=== PATIENT | male | born 1965 | race Caucasian/White ===

== ENCOUNTER 2017-07-18 01:00 | Inpatient (IN) | payer BC ==
[~2017-07-18] VITALS: Ht 172.7 cm; Wt 120.6 kg
[2017-07-18] VITALS (21 sets, daily range): BP systolic 111–152; BP diastolic 60–76; PULSE 64–83; RESP 17–32; TEMP 97.4–98; O2SAT 87–94
[~2017-07-18 01:00] MED LIST: NALOXONE HCL 0.4 MG/ML AMP IV PRN; RESP: ALBUTEROL 2.5 MG/IPRATROPIUM 0.5 MG NEB (PRN) NEB; RESP: ALBUTEROL 2.5 MG/IPRATROPIUM 0.5 MG NEB (SCH) NEB; SODIUM CHLORIDE 0.9% FLUSH 10 ML FLUSH IV FLUSH PRN; SODIUM CHLORIDE 0.9% FLUSH 10 ML FLUSH IV FLUSH SCH; methylPREDNISolone SOD SUCC 40 MG/1 ML VIAL IV PUSH SCH
[2017-07-18] MEDS ORDERED: MISCELLANEOUS NURSING INFORMATION XX SCH (01:30)
[2017-07-18] MEDS ORDERED: ACETAMINOPHEN 325 MG TAB PO PRN (01:30)
[2017-07-18] MEDS ORDERED: SODIUM CHLORIDE 0.9% FLUSH 10 ML FLUSH PRN (01:30)
[2017-07-18] MEDS ORDERED: BISACODYL 10 MG SUPP RECTAL PRN (01:30)
[2017-07-18] MEDS ORDERED: LACTULOSE SYRUP 20 GM/30 ML CUP PO PRN (01:30)
[2017-07-18] MEDS ORDERED: SENNOSIDES 8.6 MG TAB PO PRN (01:30)
[2017-07-18] MEDS ORDERED: ONDANSETRON HCL 4 MG/2 ML VIAL IV PRN (01:30)
[2017-07-18] MEDS ORDERED: CHLORHEXIDINE GLUCONATE 2 % 1 PACK (2 CLOTHS) TOP PRN (01:30)
[2017-07-18] MEDS ORDERED: MAGNESIUM HYDROXIDE SUSP 30 ML CUP PO PRN (01:30)
[2017-07-18] MEDS ORDERED: CHLORHEXIDINE GLUCONATE 2 % 1 PACK (2 CLOTHS)(extra cloths) TOPICAL PRN (01:45)
[2017-07-18] MEDS: RESP: ALBUTEROL 2.5 MG/IPRATROPIUM 0.5 MG NEB (PRN) INH (01:54)
[2017-07-18] MEDS ORDERED: methylPREDNISolone SOD SUCC 40 MG/1 ML VIAL IV SCH (02:00)
[2017-07-18] MEDS: RESP: ALBUTEROL 2.5 MG/IPRATROPIUM 0.5 MG NEB (SCH) INH ×5 (02:36→20:44)
[2017-07-18 03:02] LABS: AUTOMATED NEUTROPHIL # 6.6 TH/MM3 (1.8-7.7); BASOPHIL % 0.1 % (0.0-2.0); EOSINOPHIL % 0.1 % (0.0-4.0); HEMATOCRIT 45.8 % (39.0-51.0); HEMO FLAGS DIFF FINAL; LYMPH % 11.3 % (9.0-44.0); LYMPHOCYTE # 0.9 TH/MM3 (1.0-4.8); MEAN CELL VOLUME 98.1 FL (80.0-100.0); MEAN CORPUSCULAR HEMOGLOBIN 32.8 PG (27.0-34.0); MEAN CORPUSCULAR HGB CONC 33.5 % (32.0-36.0); MONO % 1.7 % (0.0-8.0); NEUT % 86.8 % (16.0-70.0); PLATELET COUNT 219 TH/MM3 (150-450); RED BLOOD COUNT 4.67 MIL/MM3 (4.50-5.90); RED CELL DISTRIBUTION WIDTH 13.6 % (11.6-17.2); WHITE BLOOD COUNT 7.6 TH/MM3 (4.0-11.0)
[2017-07-18] MEDS: PIPERACIL-TAZO 4.5 GM PREMIX 100 ML IV SCH ×4 (03:13→21:49)
[2017-07-18] MEDS: SODIUM CHLOR 0.9% 1000 ML INJ 1,000 ML IV SCH ×3 (03:13→21:50)
[2017-07-18] MEDS: ENOXAPARIN SODIUM 40 MG/0.4 ML SYRINGE SQ SCH (03:13)
[2017-07-18] MEDS: CHLORHEXIDINE GLUCONATE 2 % 1 PACK (2 CLOTHS)(taper/protocol) TOPICAL SCH (03:14)
[2017-07-18] MEDS: AZITHROMYCIN INJ 500 MG in SODIUM CHLOR 0.9% 250 ML INJ 250 ML IV SCH (03:14)
[2017-07-18] MEDS: CHLORHEXIDINE GLUCONATE 2 % 1 PACK (2 CLOTHS) TOP SCH (03:14)
[2017-07-18 03:23] LABS: ANION GAP 7 MEQ/L (5-15); BICARBONATE 33.6 MEQ/L (21.0-32.0); BLOOD UREA NITROGEN 15 MG/DL (7-18); CHLORIDE 100 MEQ/L (98-107); GLOMERULAR FILTRATION RATE 84 ML/MIN (>89); SODIUM (NA) 141 MEQ/L (136-145)
--- NOTE | 2017-07-18 05:35 | HHI.HP ---
HPI Service Critical Care Medicine Primary Care Physician No Primary Care Physician Admission Diagnosis Diagnosis: Travel History International Travel<30 Days: No Contact w/Intl Traveler <30 Da: No Traveled to Known Affected Are: No History of Present Illness 52-year-old very pleasant gentleman presents with the 7-10 day history of respiratory problems with progressive shortness of breath. He is a heavy smoker , but denies any history of respiratory impairment, does not see a strip cleaner or regular doctor, but reports that he has good healthy examinations. He went to an urgent care center in [place], was given an unknown antibiotic which sounds like azithromycin, in which he took 1 pill a day for 5 days, but did not get any better. He has continued to smoke, and he has continued to work. Denies any pains in his chest or elsewhere, but has had progressive shortness of breath. He went to an urgent care center here locally yesterday for further evaluation, but was sent immediately to the emergency department for high level of care, and was recommended to come by ambulance. Instead patient came by himself, stopping to smoke marijuana on the way before arrival. Review of Systems Constitutional: DENIES: Diaphoretic episodes, Fatigue, Fever, Weight gain, Weight loss, Chills, Dizziness, Change in appetite, Night Sweats Endocrine: DENIES: Heat/cold intolerance, Polydipsia, Polyuria, Polyphagia Eyes: DENIES: Blurred vision, Diplopia, Eye inflammation, Eye pain, Vision loss , Photosensitivity, Double Vision Ears, nose, mouth, throat: DENIES: Tinnitus, Hearing loss, Vertigo, Nasal discharge, Oral lesions, Throat pain, Hoarseness, Ear Pain, Running Nose, Epistaxis, Sinus Pain, Toothache, Odynophagia Respiratory: COMPLAINS OF: Shortness of breath, DENIES: Apneas, Cough, Snoring , Wheezing, Hemoptysis, Sputum production Cardiovascular: DENIES: Chest pain, Palpitations, Syncope, Dyspnea on Exertion , PND, Lower Extremity Edema, Orthopnea, Claudication Gastrointestinal: DENIES: Abdominal pain, Black stools, Bloody stools, Constipation, Diarrhea, Nausea, Vomiting, Difficulty Swallowing, Anorexia Genitourinary: DENIES: Sexual dysfunction, Urinary frequency, Urinary incontinence, Urgency, Hematuria, Dysuria, Nocturia, Penile Discharge, Testicular Pain, Testicular Swelling Musculoskeletal: DENIES: Joint pain, Muscle aches, Stiffness, Joint Swelling, Back pain, Neck pain Integumentary: DENIES: Abnormal pigmentation, Nail changes, Pruritus, Rash Hematologic/lymphatic: DENIES: Bruising, Lymphadenopathy Immunologic/allergic: DENIES: Eczema, Urticaria Neurologic: DENIES: Abnormal gait, Headache, Localized weakness, Paresthesias, Seizures, Speech Problems, Tremor, Poor Balance Psychiatric: DENIES: Anxiety, Confusion, Mood changes, Depression, Hallucinations, Agitation, Suicidal Ideation, Homicidal Ideation, Delusions Past Family Social History Allergies: Coded Allergies: No Known Allergies (Unverified , 07/17/17) Past Medical History Tobacco use disorder Obesity hypoventilation syndrome Past Surgical History None Reported Medications Reported Meds & Active Scripts Active No Active Prescriptions or Reported Medications Active Ordered Medications Current Medications Medications (Trade) Dose Ordered Sig/Chace Route PRN Reason Start Time Stop Time Status Last Admin Dose Admin Naloxone HCl (Narcan Inj) 0.4 mg UNSCH PRN IV SEE LABEL COMMENTS 07/17/17 20:30 Levofloxacin/ Dextrose 150 ml @ 100 mls/hr Q24H IV 07/18/17 09:00 Sodium Chloride 1,000 ml @ 84 mls/hr [id number] IV 07/18/17 01:21 07/18/17 03:13 Sodium Chloride (NS Flush) 2 ml UNSCH PRN .XX FLUSH AFTER USING IV ACCESS 07/18/17 01:30 Sodium Chloride (NS Flush) 2 ml BID .XX 07/18/17 09:00 Acetaminophen (Tylenol) 650 mg Q6H PRN PO PAIN 1-10 AND/OR FEVER >101F 07/18/17 01:30 Famotidine (Pepcid Inj) 20 mg Q12HR IV PUSH 07/18/17 09:00 Ondansetron HCl (Zofran Inj) 4 mg Q6H PRN IV NAUSEA OR VOMITING 07/18/17 01:30 Zolpidem Tartrate (Ambien) 5 mg HS PRN PO INSOMNIA 07/18/17 01:30 Albuterol/ Ipratropium (Duoneb Neb) 1 ampule Q4HR NEB INH 07/18/17 04:00 07/18/17 02:36 Albuterol/ Ipratropium (Duoneb Neb) 1 ampule Q2HR NEB PRN INH WHEEZING 07/18/17 01:30 07/18/17 01:54 Enoxaparin Sodium (Lovenox Inj) 40 mg Q24H SQ 07/18/17 03:00 07/18/17 03:13 Miscellaneous Information 1 Q361D XX 07/18/17 01:30 Chlorhexidine Gluconate (Chlorhexidine 2% Cloth) 3 pack Taper DAILY@04 TOP 07/18/17 04:00 07/14/18 03:59 07/18/17 03:14 Chlorhexidine Gluconate (Chlorhexidine 2% Cloth) 3 pack UNSCH PRN TOP HYGIENIC CARE 07/18/17 01:30 Senna/Docusate Sodium (Shauna-Colace) 1 tab BID PO 07/18/17 09:00 Magnesium Hydroxide (Milk Of Magnesia Liq) 30 ml Q12H PRN PO MILD - MODERATE CONSTIPATION 07/18/17 01:30 Sennosides (Senokot) 17.2 mg Q12H PRN PO MODERATE - SEVERE CONSTIPATION 07/18/17 01:30 Bisacodyl (Dulcolax Supp) 10 mg DAILY PRN RECTAL SEVERE CONSITIPATION 07/18/17 01:30 Lactulose (Lactulose Liq) 30 ml DAILY PRN PO SEVERE CONSITIPATION 07/18/17 01:30 Piperacillin Sod/ Tazobactam Sod 100 ml @ 200 mls/hr Q6H IV 07/18/17 02:00 07/18/17 03:13 Azithromycin 500 mg/Sodium Chloride 250 ml @ 250 mls/hr Q24H IV 07/18/17 04:00 07/18/17 03:14 Methylprednisolone Sodium Succinate (SoluMEDROL INJ) 40 mg Q12H IV 07/18/17 02:00 07/18/17 03:13 Miscellaneous Information Patient in critical care unit? Ass... Q361D .XX 07/18/17 01:45 Chlorhexidine Gluconate (Chlorhexidine 2% Cloth) 3 pack DAILY@04 TOPICAL 07/18/17 04:00 07/22/17 04:01 Chlorhexidine Gluconate (Chlorhexidine 2% Cloth) 3 pack UNSCH PRN TOPICAL HYGIENIC CARE 07/18/17 01:45 07/23/17 01:36 Family History No family history significant for early coronary artery disease or malignancy Social History Smokes 2 packs per day lifelong, no history of alcohol or illicit drug abuse, occasionally smokes medical marijuana Physical Exam Vital Signs Vital Signs Date Time Temp Pulse Resp B/P (MAP) Pulse Ox O2 Delivery O2 Flow Rate FiO2 07/18/17 04:08 93 50 07/18/17 04:00 66 07/18/17 02:00 70 07/18/17 02:00 97.6 70 20 125/69 (87) 90 07/18/17 01:54 94 BiPAP 50 07/18/17 01:05 91 50 Physical Exam GENERAL: Morbidly obese man on facemask BiPAP SKIN: Warm and dry. HEAD: Normocephalic. EYES: No scleral icterus. No injection or drainage. NECK: Supple, trachea midline. No JVD or lymphadenopathy. CARDIOVASCULAR: Regular rate and rhythm without murmurs, gallops, or rubs. RESPIRATORY: Breath sounds equal bilaterally. Decreased breath sounds bilaterally. No accessory muscle use. GASTROINTESTINAL: Abdomen soft, non-tender, nondistended. MUSCULOSKELETAL: No cyanosis, or edema. BACK: Nontender without obvious deformity. NEURO EXAM: GCS: M6 V5 E 4 Mental Status: The patient is alert and oriented to person, place, and time with normal speech. Cranial Nerves: Visual acuity intact bilaterally. Visual chaney normal in all quadrants. Pupils are round, reactive to light. Reflexes: Biceps, patellar, and Achilles are 2/4 bilaterally. No clonus. Laboratory Laboratory Tests Test 07/18/17 01:20 07/18/17 02:44 Nasal Screen MRSA (PCR) MRSA NOT DETECTED White Blood Count 7.6 Red Blood Count 4.67 Hemoglobin 15.3 Hematocrit 45.8 Mean Corpuscular Volume 98.1 Mean Corpuscular Hemoglobin 32.8 Mean Corpuscular Hemoglobin Concent 33.5 Red Cell Distribution Width 13.6 Platelet Count 219 Mean Platelet Volume 8.0 Neutrophils (%) (Auto) 86.8 Lymphocytes (%) (Auto) 11.3 Monocytes (%) (Auto) 1.7 Eosinophils (%) (Auto) 0.1 Basophils (%) (Auto) 0.1 Neutrophils # (Auto) 6.6 Lymphocytes # (Auto) 0.9 Monocytes # (Auto) 0.1 Eosinophils # (Auto) 0.0 Basophils # (Auto) 0.0 CBC Comment DIFF FINAL Differential Comment Blood Urea Nitrogen 15 Creatinine 0.94 Random Glucose 158 Calcium Level 8.3 Sodium Level 141 Potassium Level 4.0 Chloride Level 100 Carbon Dioxide Level 33.6 Anion Gap 7 Estimat Glomerular Filtration Rate 84 Troponin I LESS THAN 0.02 Date/Time Source Procedure Growth Status 07/18/17 02:44 Blood Peripheral Aerobic Blood Culture Pending Received 07/18/17 02:44 Blood Peripheral Anaerobic Blood Culture Pending Received Result Diagram: 07/18/174 07/18/174 Caprini VTE Risk Assessment Caprini VTE Risk Assessment: Mod/High Risk (score >= 2) Caprini Risk Assessment Model Point Value = 1 Point Value = 2 Point Value = 3 Point Value = 5 Age 41-60 Minor surgery BMI > 25 kg/m2 Swollen legs Varicose veins or History of unexplained or recurrent spontaneous Oral contraceptives or hormone replacement Sepsis (< 1 month) Serious lung disease, including pneumonia (< 1 month) Abnormal pulmonary function Acute myocardial infarction Congestive heart failure (< 1 month) History of inflammatory bowel disease Medical patient at bed rest Age 61-74 Arthroscopic surgery Major open surgery (> 45 min) Laparoscopic surgery (> 45 min) Malignancy Confined to bed (> 72 hours) Immobilizing plaster cast Central venous access Age >= 75 History of VTE Family history of VTE Factor V Leiden Prothrombin [id number] Lupus anticoagulant Anticardiolipin antibodies Elevated serum homocysteine Heparin-induced thrombocytopenia Other congenital or acquired thrombophilia Stroke (< 1 month) Elective arthroplasty Hip, pelvis, or leg fracture Acute spinal cord injury (< 1 month) Prophylaxis Regimen Total Risk Factor Score Risk Level Prophylaxis Regimen 0-1 Low Early ambulation 2 Moderate Order ONE of the following: *Sequential Compression Device (SCD) *Heparin 5000 units SQ BID 3-4 Higher Order ONE of the following medications: *Heparin 5000 units SQ TID *Enoxaparin/Lovenox 40 mg SQ daily (WT < 150 kg, CrCl > 30 mL/min) *Enoxaparin/Lovenox 30 mg SQ daily (WT < 150 kg, CrCl > 10-29 mL/min) *Enoxaparin/Lovenox 30 mg SQ BID (WT < 150 kg, CrCl > 30 mL/min) AND/OR *Sequential Compression Device (SCD) 5 or more Highest Order ONE of the following medications: *Heparin 5000 units SQ TID (Preferred with Epidurals) *Enoxaparin/Lovenox 40 mg SQ daily (WT < 150 kg, CrCl > 30 mL/min) *Enoxaparin/Lovenox 30 mg SQ daily (WT < 150 kg, CrCl > 10-29 mL/min) *Enoxaparin/Lovenox 30 mg SQ BID (WT < 150 kg, CrCl > 30 mL/min) AND *Sequential Compression Device (SCD) Assessment and Plan Assessment and Plan Respiratory failure - COPD exacerbation - Obesity hypoventilation syndrome - Tobacco use disorder - Broad-spectrum antibiotics empirically - Pancultures - IV steroid - DuoNeb scheduled and when necessary - Pulmonary consult - BiPAP at bedtime and when necessary - ABG and CXR daily DVT GI prophylaxis - Teds SCDs subcutaneous heparin and Pepcid Critical Care: The total critical care time was 35 minutes. Time to perform other separately billable procedures was not included in the critical care time. Luisito Ramos MD Jul 18, 2017 5:35 am
[2017-07-18 07:23] LABS: BLOOD GAS BASE EXCESS 6.4 mmol/L (-2-2); BLOOD GAS CARBOXYHEMOGLOBIN 2.1 % (0-4); BLOOD GAS HCO3 32 mmol/L (22-26); BLOOD GAS O2 HGB SATURATION 90 % (90-100); BLOOD GAS OXYGEN CONTENT 19.7 Vol % (12.0-20.0); BLOOD GAS PCO2 55 mmHg (38-42); BLOOD GAS PO2 69 mmHg (61-120); BLOOD GAS TOTAL HGB 15.5 G/DL (12.0-16.0); CRITICAL VALUE YES; OXYGEN DEVICE BIPAP; TEMP CORR TO 98.6
[2017-07-18 07:24] LABS: DRAW SITE RT RADIAL; FIO2 40 %; NUMBER OF ARTERIAL PUNCTURES 1; STAT NO; ULNAR PULSE Y; VENT SETTINGS 12IPAP/6EPAP
[2017-07-18] MEDS: DOCUSATE SODIUM 50 MG/SENNA 8.6 MG TAB PO SCH ×2 (08:06→21:49)
[2017-07-18] MEDS: FAMOTIDINE 20 MG/2 ML VIAL IV PUSH SCH ×2 (08:06→21:49)
[2017-07-18] MEDS: SODIUM CHLORIDE 0.9% FLUSH 10 ML FLUSH SCH ×2 (08:08→21:49)
[2017-07-18] MEDS ORDERED: PANTOPRAZOLE SOD 40 MG DELAYED RELEASE TAB PO SCH (09:00)
[2017-07-18] MEDS ORDERED: LEVOFLOXACIN 750 MG PREMIX INJ 150 ML IV SCH (09:00)
[2017-07-18 11:29] LABS: BLOOD GAS BASE EXCESS 6.5 mmol/L (-2-2); BLOOD GAS CARBOXYHEMOGLOBIN 1.9 % (0-4); BLOOD GAS HCO3 31 mmol/L (22-26); BLOOD GAS O2 HGB SATURATION 90 % (90-100); BLOOD GAS OXYGEN CONTENT 19.1 Vol % (12.0-20.0); BLOOD GAS PCO2 46 mmHg (38-42); BLOOD GAS PO2 64 mmHg (61-120); BLOOD GAS TOTAL HGB 15.1 G/DL (12.0-16.0); CRITICAL VALUE NO; OXYGEN DEVICE BIPAP; TEMP CORR TO 98.6
[2017-07-18 11:30] LABS: DRAW SITE RT RADIAL; FIO2 40 %; NUMBER OF ARTERIAL PUNCTURES 1; STAT NO; ULNAR PULSE Y; VENT SETTINGS 12 IPAP/ 6 EPAP
[2017-07-18] MEDS: methylPREDNISolone SOD SUCC 40 MG/1 ML VIAL IV SCH ×2 (17:15→21:50)
[2017-07-19] VITALS (30 sets, daily range): BP systolic 93–155; BP diastolic 52–78; PULSE 64–87; RESP 21–50; TEMP 97.8–98.6; O2SAT 87–97
[2017-07-19] MEDS: RESP: ALBUTEROL 2.5 MG/IPRATROPIUM 0.5 MG NEB (SCH) INH ×5 (00:09→19:49)
[2017-07-19] MEDS: PIPERACIL-TAZO 4.5 GM PREMIX 100 ML IV SCH ×2 (02:52→08:00)
[2017-07-19] MEDS: AZITHROMYCIN INJ 500 MG in SODIUM CHLOR 0.9% 250 ML INJ 250 ML IV SCH (02:53)
[2017-07-19] MEDS: methylPREDNISolone SOD SUCC 40 MG/1 ML VIAL IV SCH ×3 (02:53→19:40)
[2017-07-19] MEDS: ENOXAPARIN SODIUM 40 MG/0.4 ML SYRINGE SQ SCH (02:53)
[2017-07-19] MEDS: CHLORHEXIDINE GLUCONATE 2 % 1 PACK (2 CLOTHS)(taper/protocol) TOPICAL SCH (04:00)
[2017-07-19] MEDS: CHLORHEXIDINE GLUCONATE 2 % 1 PACK (2 CLOTHS) TOP SCH (04:00)
[2017-07-19 05:21] LABS: BLOOD GAS BASE EXCESS 4.8 mmol/L (-2-2); BLOOD GAS CARBOXYHEMOGLOBIN 1.3 % (0-4); BLOOD GAS HCO3 29 mmol/L (22-26); BLOOD GAS METHEMOGLOBIN 1.1 % (0-2); BLOOD GAS O2 HGB SATURATION 94 % (90-100); BLOOD GAS OXYGEN CONTENT 19.3 Vol % (12.0-20.0); BLOOD GAS PCO2 47 mmHg (38-42); BLOOD GAS PO2 82 mmHg (61-120); BLOOD GAS TOTAL HGB 14.7 G/DL (12.0-16.0); CRITICAL VALUE NO; DRAW SITE RT RADIAL; FIO2 60 %; TEMP CORR TO 98.6
[2017-07-19 05:22] LABS: NUMBER OF ARTERIAL PUNCTURES 1; STAT NO; ULNAR PULSE PRESENT
[2017-07-19 05:33] LABS: AUTOMATED NEUTROPHIL # 12.4 TH/MM3 (1.8-7.7); BASOPHIL % 0.1 % (0.0-2.0); HEMATOCRIT 43.6 % (39.0-51.0); HEMO FLAGS DIFF FINAL; LYMPH % 8.4 % (9.0-44.0); LYMPHOCYTE # 1.2 TH/MM3 (1.0-4.8); MEAN CELL VOLUME 98.8 FL (80.0-100.0); MEAN CORPUSCULAR HEMOGLOBIN 33.1 PG (27.0-34.0); MEAN CORPUSCULAR HGB CONC 33.5 % (32.0-36.0); MONO % 3.3 % (0.0-8.0); NEUT % 88.2 % (16.0-70.0); PLATELET COUNT 216 TH/MM3 (150-450); RED BLOOD COUNT 4.42 MIL/MM3 (4.50-5.90); RED CELL DISTRIBUTION WIDTH 13.8 % (11.6-17.2)
[2017-07-19 05:58] LABS: ANION GAP 8 MEQ/L (5-15); AST (GOT) 14 U/L (15-37); BICARBONATE 29.6 MEQ/L (21.0-32.0); BLOOD UREA NITROGEN 25 MG/DL (7-18); CHLORIDE 103 MEQ/L (98-107); GLOMERULAR FILTRATION RATE 81 ML/MIN (>89); MAGNESIUM 2.7 MG/DL (1.5-2.5); POTASSIUM 4.2 MEQ/L (3.5-5.1); SODIUM (NA) 141 MEQ/L (136-145)
[2017-07-19 06:03] LABS: ALKALINE PHOSPHATASE 53 U/L (45-117); ALT (GPT) 74 U/L (12-78); TOTAL BILIRUBIN ADULT 0.5 MG/DL (0.2-1.0)
[2017-07-19] MEDS: DOCUSATE SODIUM 50 MG/SENNA 8.6 MG TAB PO SCH ×2 (09:00→19:41)
[2017-07-19] MEDS: FAMOTIDINE 20 MG/2 ML VIAL IV PUSH SCH ×2 (09:00→19:40)
[2017-07-19] MEDS: SODIUM CHLORIDE 0.9% FLUSH 10 ML FLUSH SCH ×2 (09:00→19:41)
--- NOTE | 2017-07-19 12:28 | MB ---
cc: ANTHONY TEJEDA DATE OF CONSULTATION: 07/19/2017 REASON FOR CONSULTATION: Respiratory failure. HISTORY OF PRESENT ILLNESS: This is a 49-year-old overweight white male with a history of shortness of breath and bronchitis who apparently has been experiencing cough, wheezing and chest congestion and was on an oral antibiotic but failed to improve. The patient was brought to the emergency room and a chest CT and a CBC done and the chest CT demonstrated no evidence of pulmonary emboli and mild atelectasis. The patient has had been and respiratory failure following admission and thus had been placed on a BiPAP mask to maintain his saturation above 92%. He has no hemoptysis but has had some yellow sputum and denied fevers or chills and night sweats. HABITS The patient smoked half to one-pack per day for over 35 years. No significant alcohol. SURGERIES: None listed. ALLERGIES: NO KNOWN DRUG ALLERGIES. FAMILY HISTORY: Essentially noncontributory REVIEW OF SYSTEMS The patient has gained weight. He has apneic episodes and snoring. Denies any leg or calf muscle pains. He has joint pains of the extremities. He denies any skin rash. He has some anxiety attacks. He has had no urinary symptoms or GI symptoms. PHYSICAL EXAMINATION: GENERAL: This is a moderately obese middle-aged white male who is in bed on a BiPAP mask alert and cooperative and face was flushed. He has mild peripheral edema. No lymphadenopathy. VITAL SIGNS: Blood pressure 148/80, pulse is 90, respirations 22, temperature 98.2. HEAD, EYES, EARS, NOSE, THROAT: Head normocephalic. The pupils are reactive. Tongue is moist. Throat is injected. Nasal mucosa edematous. NECK: The neck is supple. No venous distention. Trachea is midline. CHEST: Distant breath sounds with expiratory wheezes throughout both lung chaney. Prolonged expirations. HEART: Heart sounds are irregular. S1-S2. No murmur. No S3. ABDOMEN: Abdomen soft and benign. No masses. No organomegaly or tenderness. The bowel sounds are active. EXTREMITIES: Mild varicosities with decreased peripheral pulses. No significant edema. NEUROLOGIC: Reflexes are 1+. No gross motor deficits. Cranial nerves are grossly intact. RECTAL: Rectal exam is deferred. IMPRESSION: 1. Acute respiratory failure. 2. COPD. 3. Chronic bronchitis. 4. Probable obstructive sleep apnea syndrome. 5. History of hypertension. PLAN: 1. The patient was counselled about not smoking any more and advised to lose weight. 2. He will be scheduled for a sleep study nebulized DuoNeb solution will be added four times a day. 3. The patient will have complete pulmonary function with bronchodilators. 4. He will continue with Solu-Medrol 40 milligrams IV every eight hours. 5. Antibiotic therapy including Levaquin 750 milligrams IV daily. 6. Sputum will be sent for Gram stain and culture. 7. Urine antigen sent for Pneumococcal antigen. 8. Symbicort inhaler 160/4.5 two puffs twice a day was added. I will follow the case with you, Dr. Restrepo. Thank you for this consultation. MD JORDY Starks/SCOOBY /11:37 PM /12:01 PM
--- NOTE | 2017-07-19 12:37 | HHI.PR ---
Subjective Remarks Patient is awake and alert on bipap able to answer questions denies cp, sob is improving as per patient Denies nausea, vomiting or abdominal pain denies diarrhea or rash Objective Vitals Vital Signs Date Time Temp Pulse Resp B/P (MAP) Pulse Ox O2 Delivery O2 Flow Rate FiO2 07/19/17 10:01 84 07/19/17 10:00 73 07/19/17 09:01 85 41 101/58 (72) 87 07/19/17 09:01 85 07/19/17 09:00 87 38 91 07/19/17 09:00 87 07/19/17 08:01 71 07/19/17 08:01 71 28 107/68 (81) 95 07/19/17 08:00 65 07/19/17 08:00 66 07/19/17 08:00 98.6 07/19/17 08:00 66 25 95 07/19/17 07:46 95 60 07/19/17 06:00 67 07/19/17 04:02 93 60 07/19/17 04:00 64 07/19/17 04:00 97.8 64 21 98/54 (69) 92 07/19/17 02:00 66 07/19/17 01:09 94 60 07/19/17 01:01 94 BiPAP 60 07/19/17 00:00 97.8 69 23 102/57 (72) 94 07/19/17 00:00 69 07/18/17 22:00 73 07/18/17 20:47 94 60 07/18/17 20:00 97.4 76 32 113/66 (82) 93 07/18/17 20:00 76 07/18/17 16:31 90 45 07/18/17 15:00 77 23 111/60 (77) 90 07/18/17 14:00 64 17 139/67 (91) 89 07/18/17 13:00 72 20 139/76 (97) 87 I/O 07/18/17 07/18/17 07/18/17 07/19/17 07/19/17 07/19/17 07:00 15:00 23:00 07:00 15:00 23:00 Intake Total 450 ml 250 ml 690 ml 1000 ml Output Total 550 ml Balance 450 ml 250 ml 140 ml 1000 ml Intake Oral 240 ml IV Total 450 ml 250 ml 450 ml 1000 ml Output Urine Total 550 ml # Voids 1 # Bowel Movements 0 Result Diagram: 07/19/17 0456 07/19/17 0456 Imaging Chest x-ray on showed mildly underinflated atelectasis at the lung bases. Otherwise no acute findings were identified. Reviewed by me. Objective Remarks AAOx3, moderate respiratory distress On full face bipap. There is decreased breath sounds on lung exam BL however air entry is perceived without wheezing, rhonchi. S1S2 +, RRR, no MRG No edema in lower extremities good peripheral pulses in upper and lowe extremities Procedures None Medications and IVs Current Medications Medications (Trade) Dose Ordered Sig/Chace Route Start Time Stop Time Status Last Admin (Narcan Inj) 0.4 mg UNSCH PRN IV 07/17/17 20:30 Sodium Chloride 1,000 ml @ 84 mls/hr [id number] IV 07/18/17 01:21 07/19/17 13:00 (NS Flush) 2 ml UNSCH PRN .XX 07/18/17 01:30 (NS Flush) 2 ml BID .XX 07/18/17 09:00 07/19/17 09:00 (Tylenol) 650 mg Q6H PRN PO 07/18/17 01:30 (Pepcid Inj) 20 mg Q12HR IV PUSH 07/18/17 09:00 07/19/17 09:00 (Zofran Inj) 4 mg Q6H PRN IV 07/18/17 01:30 (Ambien) 5 mg HS PRN PO 07/18/17 01:30 (Duoneb Neb) 1 ampule Q4HR NEB INH 07/18/17 04:00 07/19/17 11:53 (Duoneb Neb) 1 ampule Q2HR NEB PRN INH 07/18/17 01:30 07/18/17 01:54 (Lovenox Inj) 40 mg Q24H SQ 07/18/17 03:00 07/19/17 02:53 Miscellaneous Information 1 Q361D XX 07/18/17 01:30 (Chlorhexidine 2% Cloth) 3 pack Taper DAILY@04 TOP 07/18/17 04:00 07/14/18 03:59 07/19/17 04:00 (Chlorhexidine 2% Cloth) 3 pack UNSCH PRN TOP 07/18/17 01:30 (Shauna-Colace) 1 tab BID PO 07/18/17 09:00 07/19/17 09:00 (Milk Of Magnesia Liq) 30 ml Q12H PRN PO 07/18/17 01:30 (Senokot) 17.2 mg Q12H PRN PO 07/18/17 01:30 (Dulcolax Supp) 10 mg DAILY PRN RECTAL 07/18/17 01:30 (Lactulose Liq) 30 ml DAILY PRN PO 07/18/17 01:30 Miscellaneous Information Patient in critical care unit? Ass... Q361D .XX 07/18/17 01:45 (Chlorhexidine 2% Cloth) 3 pack DAILY@04 TOPICAL 07/18/17 04:00 07/22/17 04:01 (Chlorhexidine 2% Cloth) 3 pack UNSCH PRN TOPICAL 07/18/17 01:45 07/23/17 01:36 Levofloxacin/ Dextrose 150 ml @ 100 mls/hr Q24H IV 07/19/17 14:00 07/19/17 14:00 (Habitrol 21 Mg Patch.24 Hr) 1 patch DAILY T-DERMAL 07/19/17 14:00 Miscellaneous Information 1 DAILY T-DERMAL 07/20/17 09:00 (SoluMEDROL INJ) 40 mg Q8HR IV 07/19/17 14:00 07/19/17 14:00 Urinary Catheter: No Vascular Central Line Catheter: No A/P Problem List: (1) Acute hypercapnic respiratory failure ICD Code: J96.02 - Acute respiratory failure with hypercapnia Status: Acute Plan: The patient was admitted to the intensive care unit and placed on BiPAP for support. ABG on admission had a pH of 7.38, PCO2 55 and PO2 69 Start IV Solu-Medrol. Continue IV steroids Continue IV antibiotics, the patient initially started on vancomycin and IV Zosyn. I will discontinue IV vancomycin and IV Zosyn and I will start the patient on IV Levaquin. Continue BiPAP as needed and supplemental oxygen to keep oxygen saturation more than 92%. Appreciate pulmonary recommendations. We'll follow-up his recommendations. (2) COPD with acute exacerbation ICD Code: J44.1 - Chronic obstructive pulmonary disease with (acute) exacerbation Status: Acute Plan: As above. I will decrease the dose of Solu-Medrol from 40 minutes IV every 6 hours to 40 mg IV every 8 hours. Continue BiPAP as needed (3) Tobacco abuse disorder ICD Code: Z72.0 - Tobacco use Status: Chronic Plan: Advised smoking cessation. (4) Leukocytosis ICD Code: D72.829 - Elevated white blood cell count, unspecified Status: Acute Plan: WBC increased from 7.6-14.0. Likely secondary to stress and a steroid use. We'll continue to monitor CBC with differential (5) Obesity hypoventilation syndrome ICD Code: E66.2 - Morbid (severe) obesity with alveolar hypoventilation Plan: Advised weight loss. Continue BiPAP as needed. (6) Hyperglycemia ICD Code: R73.9 - Hyperglycemia, unspecified Status: Acute Plan: No prior history of diabetes mellitus. Likely steroid-induced. We'll place on SSI with insulin NovoLog and monitor Accu-Cheks. Check hemoglobin A1c. Assessment and Plan GI prophylaxis: PPI. DVT prophylaxis: Continue Lovenox subcutaneously and SCDs. Discharge Planning [place] to monitor in intensive care unit. Discussed with RN. Problem Qualifiers (1) Leukocytosis: Qualified Codes: D72.829 - Elevated white blood cell count, unspecified David Martinez MD Jul 19, 2017 12:37
[2017-07-19] MEDS: SODIUM CHLOR 0.9% 1000 ML INJ 1,000 ML IV SCH (13:00)
[2017-07-19] MEDS ORDERED: SODIUM CHLORID 0.9% 500 ML INJ 500 ML IV ONE (13:15)
[2017-07-19] MEDS: LEVOFLOXACIN 750 MG PREMIX INJ 150 ML IV SCH (14:00)
[2017-07-19] MEDS: NICOTINE 21 MG/24 HR PATCH T-DERMAL SCH (14:00)
--- NOTE | 2017-07-19 15:16 | HHI.PR ---
Subjective Remarks He is better. Off Bipap but still Hypoxic. On 6 L o2. No chest pain. Or fever. Objective Vital Signs Date Time Temp Pulse Resp B/P (MAP) Pulse Ox O2 Delivery O2 Flow Rate FiO2 07/19/17 13:00 70 07/19/17 13:00 70 28 104/62 (76) 97 07/19/17 12:00 72 22 94/52 (66) 94 07/19/17 12:00 72 07/19/17 12:00 98.3 07/19/17 10:01 84 07/19/17 10:00 73 07/19/17 09:01 85 41 101/58 (72) 87 07/19/17 09:01 85 07/19/17 09:00 87 38 91 07/19/17 09:00 87 07/19/17 08:01 71 07/19/17 08:01 71 28 107/68 (81) 95 07/19/17 08:00 65 07/19/17 08:00 66 07/19/17 08:00 98.6 07/19/17 08:00 66 25 95 07/19/17 07:46 95 60 07/19/17 06:00 67 07/19/17 04:02 93 60 07/19/17 04:00 64 07/19/17 04:00 97.8 64 21 98/54 (69) 92 07/19/17 02:00 66 07/19/17 01:09 94 60 07/19/17 01:01 94 BiPAP 60 07/19/17 00:00 97.8 69 23 102/57 (72) 94 07/19/17 00:00 69 07/18/17 22:00 73 07/18/17 20:47 94 60 07/18/17 20:00 97.4 76 32 113/66 (82) 93 07/18/17 20:00 76 07/18/17 16:31 90 45 I/O 07/18/17 07/18/17 07/18/17 07/19/17 07/19/17 07/19/17 06:59 14:59 22:59 06:59 14:59 22:59 Intake Total 450 ml 250 ml 690 ml 1200 ml Output Total 550 ml Balance 450 ml 250 ml 140 ml 1200 ml Intake Oral 240 ml IV Total 450 ml 250 ml 450 ml 1200 ml Output Urine Total 550 ml # Voids 1 # Bowel Movements 0 Result Diagram: 07/19/17 0456 07/19/17 0456 Objective Remarks GENERAL: This is a moderately obese middle-aged white male who is alert and cooperative and face was flushed. He has mild peripheral Edema HEAD, EYES, EARS, NOSE, THROAT: Head normocephalic. The pupils are reactive. Tongue is moist. Throat is injected. Nasal mucosa edematous. NECK: The neck is supple. No venous distention. Trachea is midline. CHEST: Distant breath sounds with expiratory wheezes throughout both lung chaney. Prolonged expirations. HEART: Heart sounds are irregular. S1-S2. No murmur. No S3. ABDOMEN: Abdomen soft and benign. No masses. No organomegaly or tenderness. The bowel sounds are active. EXTREMITIES: Mild varicosities with decreased peripheral pulses. No significant edema. NEUROLOGIC: Reflexes are 1+. No gross motor deficits. Cranial nerves are grossly intact. RECTAL: Rectal exam is deferred. Assessment and Plan Assessment and Plan IMPRESSION: 1. Acute respiratory failure. 2. COPD. 3. Chronic bronchitis. 4. Probable obstructive sleep apnea syndrome. 5. History of hypertension. 6. R/O PE Plan : 1. Continue antibiotics, Levaquin IV 2. Wean o2 to 5 l 3. Bipap at HS12/5 cm 4. Nebs qid , duoneb. 5. D/C SCD's. 6. Solumedrol 40 mg IV q8h 7. CBC,CTA chest . 8. PFT on Friday Alisha Phan MD Jul 19, 2017 15:16
[2017-07-19] MEDS ORDERED: IOHEXOL 350 MG/ML 10 ML VIAL (for RAD DIAG) IVCONTRAST ONE (16:44)
--- NOTE | 2017-07-19 16:54 | RADRPT ---
EXAM DATE/TIME: 07/19/2017 16:01 [facility] COMPARISON: No previous studies available for comparison. INDICATIONS : Shortness of breath. IV CONTRAST: 70 cc Omnipaque 350 (iohexol) IV RADIATION DOSE: 13.73 CTDIvol (mGy) MEDICAL HISTORY : None SURGICAL HISTORY : None. ENCOUNTER: Initial ACUITY: 1 day PAIN SCALE: 0/10 LOCATION: chest TECHNIQUE: Volumetric scanning of the chest was performed using a pulmonary embolism protocol MIP images were re constructed. Using automated exposure control and adjustment of the mA and/or kV according to patien t size, radiation dose was kept as low as reasonably achievable to obtain optimal diagnostic quality images. DICOM format image data is available electronically for review and comparison. Follow-up recommendations for detected pulmonary nodules are based at a minimum on nodule size and pa tient risk factors according to Fleischner Society Guidelines. FINDINGS: There is mild interstitial changes evident with minimal bibasilar principal changes. There is no significant pleural effusion There is mild cardiomegaly without significant coronary calcifications There is good visualization of the central pulmonary vessels. I don't see evidence for central pulmo nary emboli There is no axillary adenopathy. There is no radiographically significant mediastinal adenopathy. The portion of the liver and spleen identified are free of focal defects. CONCLUSION: Suspicious for mild congestive failure There is no central pulmonary emboli. Duglas Johnson MD FACR on July 19, 2017 at 16:50 Board Certified Radiologist. This report was verified electronically.
[2017-07-19 16:55] LABS: BLOOD, URINE NEG (NEG); GLUCOSE,URINE NEG (NEG); KETONE, URINE TRACE mg/dL (NEG); MUCUS URINE FEW /lpf (OCC); NITRITE,URINE NEG (NEG); URINE COLOR YELLOW (YELLW/STRAW)
[2017-07-19 16:57] LABS: COMMENT (UR) CATH-CULT NOT IND; CULTURE IF INDICATED CATH CULTURE NOT IND
[2017-07-20] VITALS (18 sets, daily range): BP systolic 88–141; BP diastolic 52–74; PULSE 55–95; RESP 15–26; TEMP 97.9–98.7; O2SAT 90–99
[2017-07-20] MEDS: RESP: ALBUTEROL 2.5 MG/IPRATROPIUM 0.5 MG NEB (SCH) INH ×6 (00:17→20:31)
[2017-07-20] MEDS: SODIUM CHLOR 0.9% 1000 ML INJ 1,000 ML IV SCH ×2 (01:01→13:15)
[2017-07-20] MEDS: CHLORHEXIDINE GLUCONATE 2 % 1 PACK (2 CLOTHS)(taper/protocol) TOPICAL SCH (04:00)
[2017-07-20] MEDS: CHLORHEXIDINE GLUCONATE 2 % 1 PACK (2 CLOTHS) TOP SCH (04:00)
[2017-07-20] MEDS: methylPREDNISolone SOD SUCC 40 MG/1 ML VIAL IV SCH ×3 (06:04→21:08)
[2017-07-20] MEDS: ENOXAPARIN SODIUM 40 MG/0.4 ML SYRINGE SQ SCH (06:05)
[2017-07-20 06:16] LABS: AUTOMATED NEUTROPHIL # 10.3 TH/MM3 (1.8-7.7); BASOPHIL % 0.1 % (0.0-2.0); HEMATOCRIT 44.1 % (39.0-51.0); HEMO FLAGS DIFF FINAL; LYMPH % 11.3 % (9.0-44.0); LYMPHOCYTE # 1.4 TH/MM3 (1.0-4.8); MEAN CORPUSCULAR HEMOGLOBIN 32.9 PG (27.0-34.0); MEAN CORPUSCULAR HGB CONC 32.9 % (32.0-36.0); MONO % 4.7 % (0.0-8.0); NEUT % 83.9 % (16.0-70.0); PLATELET COUNT 199 TH/MM3 (150-450); RED BLOOD COUNT 4.41 MIL/MM3 (4.50-5.90); RED CELL DISTRIBUTION WIDTH 13.7 % (11.6-17.2); WHITE BLOOD COUNT 12.3 TH/MM3 (4.0-11.0)
[2017-07-20 06:38] LABS: ANION GAP 8 MEQ/L (5-15); AST (GOT) 17 U/L (15-37); BICARBONATE 28.3 MEQ/L (21.0-32.0); BLOOD UREA NITROGEN 22 MG/DL (7-18); CHLORIDE 103 MEQ/L (98-107); GLOMERULAR FILTRATION RATE 111 ML/MIN (>89); MAGNESIUM 2.6 MG/DL (1.5-2.5); POTASSIUM 4.4 MEQ/L (3.5-5.1); SODIUM (NA) 139 MEQ/L (136-145)
[2017-07-20 06:43] LABS: ALKALINE PHOSPHATASE 49 U/L (45-117); ALT (GPT) 64 U/L (12-78); TOTAL BILIRUBIN ADULT 0.3 MG/DL (0.2-1.0)
[2017-07-20] MEDS: DOCUSATE SODIUM 50 MG/SENNA 8.6 MG TAB PO SCH ×2 (07:49→21:00)
[2017-07-20] MEDS: NICOTINE 21 MG/24 HR PATCH T-DERMAL SCH (09:00)
[2017-07-20] MEDS: REMOVE OLD PATCH T-DERMAL SCH (09:00)
[2017-07-20] MEDS: SODIUM CHLORIDE 0.9% FLUSH 10 ML FLUSH SCH ×2 (09:41→21:08)
[2017-07-20] MEDS: FAMOTIDINE 20 MG/2 ML VIAL IV PUSH SCH ×2 (09:41→21:07)
--- NOTE | 2017-07-20 12:58 | HHI.PR ---
Subjective Remarks Patient c/o diarrhea, RN confirmed constant diarrhea denies nausea or vomiting or abdominal pain feels hungry off bipap and down to 6 liters venti mask afebrile Objective Vitals Vital Signs Date Time Temp Pulse Resp B/P (MAP) Pulse Ox O2 Delivery O2 Flow Rate FiO2 07/20/17 12:43 94 Simple Mask 6.00 07/20/17 07:52 99 45 07/20/17 06:00 84 07/20/17 04:05 94 45 07/20/17 04:00 98.2 67 23 120/59 (79) 95 07/20/17 04:00 62 07/20/17 02:00 62 07/20/17 01:31 93 45 07/20/17 00:00 97.9 60 16 88/52 (64) 93 07/20/17 00:00 95 07/19/17 22:02 93 45 07/19/17 22:00 71 07/19/17 20:00 85 07/19/17 20:00 98.5 74 24 95 07/19/17 19:47 95 50 07/19/17 18:04 80 07/19/17 18:04 80 31 101/75 (84) 87 07/19/17 18:00 86 07/19/17 18:00 86 50 87 07/19/17 17:01 77 30 155/76 (102) 91 07/19/17 17:01 77 07/19/17 17:00 77 07/19/17 17:00 77 21 91 07/19/17 16:42 85 07/19/17 16:42 85 29 93/78 (83) 88 07/19/17 16:00 98.5 07/19/17 16:00 81 32 105/56 (72) 90 07/19/17 16:00 81 07/19/17 15:46 86 07/19/17 15:27 83 07/19/17 15:00 80 07/19/17 14:00 78 07/19/17 13:00 70 07/19/17 13:00 70 28 104/62 (76) 97 I/O 07/19/17 07/19/17 07/19/17 07/20/17 07/20/17 07/20/17 07:00 15:00 23:00 07:00 15:00 23:00 Intake Total 690 ml 1200 ml 960 ml 200 ml Output Total 550 ml 750 ml 950 ml Balance 140 ml 1200 ml 210 ml -750 ml Intake Oral 240 ml 960 ml 200 ml IV Total 450 ml 1200 ml Output Urine Total 550 ml 750 ml 950 ml # Voids 2 # Bowel Movements 0 1 1 Result Diagram: 07/20/17 0525 07/20/[address] Angiography 07/19/17 1509 Signed Impressions: Service Date/Time: Wednesday, July 19, 2017 16:01 - CONCLUSION: Suspicious for mild congestive failure There is no central pulmonary emboli. Duglas Johnson MD FACR Reviewed personally by me Objective Remarks AAOx3, moderate respiratory distress On full face bipap. Clear to auscultation of BL lung chaney but overal decreased. No wheezing, rhonchi or crackles auscultated. S1S2 +, RRR, no MRG Bowel sounds are present, abdomen is obese, nontender to palpation. No edema in lower extremities good peripheral pulses in upper and lowe extremities Procedures None Medications and IVs Current Medications Medications (Trade) Dose Ordered Sig/Chace Route Start Time Stop Time Status Last Admin (Narcan Inj) 0.4 mg UNSCH PRN IV 07/17/17 20:30 Sodium Chloride 1,000 ml @ 84 mls/hr [id number] IV 07/18/17 01:21 07/20/17 01:01 (NS Flush) 2 ml UNSCH PRN .XX 07/18/17 01:30 (NS Flush) 2 ml BID .XX 07/18/17 09:00 07/20/17 09:41 (Tylenol) 650 mg Q6H PRN PO 07/18/17 01:30 (Pepcid Inj) 20 mg Q12HR IV PUSH 07/18/17 09:00 07/20/17 09:41 (Zofran Inj) 4 mg Q6H PRN IV 07/18/17 01:30 (Ambien) 5 mg HS PRN PO 07/18/17 01:30 (Duoneb Neb) 1 ampule Q4HR NEB INH 07/18/17 04:00 07/20/17 10:18 (Duoneb Neb) 1 ampule Q2HR NEB PRN INH 07/18/17 01:30 07/18/17 01:54 (Lovenox Inj) 40 mg Q24H SQ 07/18/17 03:00 07/20/17 06:05 Miscellaneous Information 1 Q361D XX 07/18/17 01:30 (Chlorhexidine 2% Cloth) 3 pack Taper DAILY@04 TOP 07/18/17 04:00 07/14/18 03:59 07/20/17 04:00 (Chlorhexidine 2% Cloth) 3 pack UNSCH PRN TOP 07/18/17 01:30 (Shauna-Colace) 1 tab BID PO 07/18/17 09:00 07/19/17 09:00 (Milk Of Magnesia Liq) 30 ml Q12H PRN PO 07/18/17 01:30 (Senokot) 17.2 mg Q12H PRN PO 07/18/17 01:30 (Dulcolax Supp) 10 mg DAILY PRN RECTAL 07/18/17 01:30 (Lactulose Liq) 30 ml DAILY PRN PO 07/18/17 01:30 Miscellaneous Information Patient in critical care unit? Ass... Q361D .XX 07/18/17 01:45 (Chlorhexidine 2% Cloth) 3 pack DAILY@04 TOPICAL 07/18/17 04:00 07/22/17 04:01 (Chlorhexidine 2% Cloth) 3 pack UNSCH PRN TOPICAL 07/18/17 01:45 07/23/17 01:36 Levofloxacin/ Dextrose 150 ml @ 100 mls/hr Q24H IV 07/19/17 14:00 07/19/17 14:00 (Habitrol 21 Mg Patch.24 Hr) 1 patch DAILY T-DERMAL 07/19/17 14:00 Miscellaneous Information 1 DAILY T-DERMAL 07/20/17 09:00 (SoluMEDROL INJ) 40 mg Q8HR IV 07/19/17 14:00 07/20/17 06:04 (Lasix Inj) 40 mg BID@,18 IV PUSH 07/20/17 18:00 Urinary Catheter: No Vascular Central Line Catheter: No A/P Problem List: (1) Acute hypercapnic respiratory failure ICD Code: J96.02 - Acute respiratory failure with hypercapnia Status: Acute Plan: The patient was admitted to the intensive care unit and placed on BiPAP for support. ABG on admission had a pH of 7.38, PCO2 55 and PO2 69 started on Iv Solumedrol. Patient initially started on IV Zosyn and Vancomycin which were discontinued and patient started on Levaquin. Continue BiPAP as needed and supplemental oxygen to keep oxygen saturation more than 92%. Appreciate pulmonary recommendations. We'll follow-up his recommendations. / respiratory failure improving. Patient down to 6 L on Ventimask and off BiPAP. CT of the chest was negative for PE but suspicious for congestive heart failure. I will start the patient IV Lasix 40 mg IV twice a day, check BNP and order and to the echocardiogram to assessed heart function and anatomy. (2) COPD with acute exacerbation ICD Code: J44.1 - Chronic obstructive pulmonary disease with (acute) exacerbation Status: Acute Plan: As above. Continue with Solu-Medrol and taper the dose to 40 mg IV every 12 hours. Continue BiPAP as needed (3) Tobacco abuse disorder ICD Code: Z72.0 - Tobacco use Status: Chronic Plan: Advised smoking cessation. (4) Leukocytosis ICD Code: D72.829 - Elevated white blood cell count, unspecified Status: Acute Plan: WBC increased from 7.6-14.0. Likely secondary to stress and a steroid use. 07/19 WBC slightly decreased from 14 K to 12 K. Patient has no fevers. Continue to monitor CBC with differential. (5) Obesity hypoventilation syndrome ICD Code: E66.2 - Morbid (severe) obesity with alveolar hypoventilation Status: Chronic Plan: Advised weight loss. Continue BiPAP as needed. (6) Hyperglycemia ICD Code: R73.9 - Hyperglycemia, unspecified Status: Acute Plan: No prior history of diabetes mellitus. Likely steroid-induced. . Continue on SSI with insulin NovoLog and monitor Accu-Cheks. Check hemoglobin A1c Blood sugars stable. (7) CHF (congestive heart failure) ICD Code: I50.9 - Heart failure, unspecified Plan: As evidence on CTA of the chest described above. As well as respiratory failure which is still not much improved with IV steroids and antibiotics. Unspecified type at this moment. I will check a 2-D echocardiogram and a BNP. I will start the patient IV Lasix. Assessment and Plan GI prophylaxis: PPI. DVT prophylaxis: Continue Lovenox subcutaneously and SCDs. Discharge Planning [place] to monitor in intensive care unit. Discussed with RN. Problem Qualifiers (1) Leukocytosis: Qualified Codes: D72.829 - Elevated white blood cell count, unspecified (2) CHF (congestive heart failure): Qualified Codes: I50.9 - Heart failure, unspecified David Martinez MD Jul 20, 2017 12:58
[2017-07-20] MEDS ORDERED: GLUCAGON 1 MG/ML VIAL OTHER PRN (13:15)
[2017-07-20] MEDS: LEVOFLOXACIN 750 MG PREMIX INJ 150 ML IV SCH (13:15)
[2017-07-20] MEDS ORDERED: DEXTROSE 50% IN WATER 50 ML VIAL(D50) IV PRN (13:15)
[2017-07-20] MEDS: INSULIN ASPART SUPPLEMENTAL SCALE SQ SCH ×2 (16:00→21:00)
[2017-07-20] MEDS: FUROSEMIDE 40 MG/4 ML VIAL IV PUSH SCH (17:23)
--- NOTE | 2017-07-20 18:41 | HHI.PR ---
Subjective Remarks He is better. Used Bipap last nite. On 6 L o2. No chest pain. Or fever. CT shows possible CHF Objective Vital Signs Date Time Temp Pulse Resp B/P (MAP) Pulse Ox O2 Delivery O2 Flow Rate FiO2 07/20/17 18:00 90 07/20/17 16:45 93 Simple Mask 7.00 07/20/17 16:00 94 07/20/17 14:00 86 07/20/17 12:43 94 Simple Mask 6.00 07/20/17 12:00 66 07/20/17 10:00 64 07/20/17 07:52 99 45 07/20/17 06:00 84 07/20/17 04:05 94 45 07/20/17 04:00 98.2 67 23 120/59 (79) 95 07/20/17 04:00 62 07/20/17 02:00 62 07/20/17 01:31 93 45 07/20/17 00:00 97.9 60 16 88/52 (64) 93 07/20/17 00:00 95 07/19/17 22:02 93 45 07/19/17 22:00 71 07/19/17 20:00 85 07/19/17 20:00 98.5 74 24 95 07/19/17 19:47 95 50 I/O 07/19/17 07/19/17 07/19/17 07/20/17 07/20/17 07/20/17 06:59 14:59 22:59 06:59 14:59 22:59 Intake Total 690 ml 1200 ml 960 ml 200 ml 840 ml Output Total 550 ml 750 ml 950 ml 1300 ml Balance 140 ml 1200 ml 210 ml -750 ml -460 ml Intake Oral 240 ml 960 ml 200 ml 840 ml IV Total 450 ml 1200 ml Output Urine Total 550 ml 750 ml 950 ml 1300 ml # Voids 2 # Bowel Movements 0 1 1 2 Result Diagram: 07/20/1752407/20/17524 Objective Remarks GENERAL: This is a moderately obese middle-aged white male who is alert and cooperative and face was flushed. He has mild peripheral Edema HEAD, EYES, EARS, NOSE, THROAT: Head normocephalic. The pupils are reactive. Tongue is moist. Throat is injected. Nasal mucosa edematous. NECK: The neck is supple. No venous distention. Trachea is midline. CHEST: Distant breath sounds with expiratory wheezes throughout both lung chaney. Prolonged expirations.Occ crackles . HEART: Heart sounds are irregular. S1-S2. No murmur. No S3. ABDOMEN: Abdomen soft and benign. No masses. No organomegaly or tenderness. The bowel sounds are active. EXTREMITIES: Mild varicosities with decreased peripheral pulses. No significant edema. NEUROLOGIC: Reflexes are 1+. No gross motor deficits. Cranial nerves are grossly intact. RECTAL: Rectal exam is deferred. Assessment and Plan Assessment and Plan IMPRESSION: 1. Acute respiratory failure. 2. COPD. 3. Chronic bronchitis. 4. Probable obstructive sleep apnea syndrome. 5. History of hypertension. 6. R/O PE 7. CHF Plan : 1. Continue antibiotics, Levaquin IV 2. Wean o2 to 5 l 3. Bipap at HS12/5 cm 4. Nebs qid , duoneb. 5. Lovenox 40 mg S/Q daily 6. Solumedrol 40 mg IV q8h 7. Lasix 40 mg IV BID and KCl 20 meq. 8. PFT on Friday Alisha Phan MD Jul 20, 2017 18:41
[2017-07-20 22:25] LABS: C. DIFF EPI 027 PRESUMPTIVE NEGATIVE (NEGATIVE)
[2017-07-21] VITALS (19 sets, daily range): BP systolic 98–135; BP diastolic 54–68; PULSE 60–84; RESP 15–28; TEMP 98–98.6; O2SAT 90–94
[2017-07-21] MEDS: RESP: ALBUTEROL 2.5 MG/IPRATROPIUM 0.5 MG NEB (SCH) INH ×7 (00:06→23:45)
[2017-07-21] MEDS: SODIUM CHLOR 0.9% 1000 ML INJ 1,000 ML IV SCH (00:51)
--- NOTE | 2017-07-21 03:12 | RADRPT ---
EXAM DATE/TIME: 07/21/2017 02:09 [facility] COMPARISON: CHEST SINGLE AP, July 18, 2017, 0:16. INDICATIONS : Shortness of breath, possible pulmonary disease. MEDICAL HISTORY : None. SURGICAL HISTORY : None. ENCOUNTER: Subsequent ACUITY: 2 days PAIN SCORE: Non-responsive. LOCATION: Bilateral chest FINDINGS: Mild consolidation with probable small effusion seen right lung base. Left lung clear. No pneumothora x seen. Heart size stable, upper limits of normal. CONCLUSION: Mild infiltrate and effusion developing of the right lung base. Alexsander Julien MD on July 21, 2017 at 3:10 Board Certified Radiologist. This report was verified electronically.
[2017-07-21] MEDS: CHLORHEXIDINE GLUCONATE 2 % 1 PACK (2 CLOTHS) TOP SCH (04:00)
[2017-07-21] MEDS: CHLORHEXIDINE GLUCONATE 2 % 1 PACK (2 CLOTHS)(taper/protocol) TOPICAL SCH (04:00)
[2017-07-21] MEDS: ENOXAPARIN SODIUM 40 MG/0.4 ML SYRINGE SQ SCH (06:08)
[2017-07-21] MEDS: methylPREDNISolone SOD SUCC 40 MG/1 ML VIAL IV SCH ×3 (06:08→20:47)
[2017-07-21] MEDS: INSULIN ASPART SUPPLEMENTAL SCALE SQ SCH ×4 (06:08→20:48)
[2017-07-21] MEDS: SODIUM CHLORIDE 0.9% FLUSH 10 ML FLUSH SCH ×2 (08:34→20:47)
[2017-07-21] MEDS: FUROSEMIDE 40 MG/4 ML VIAL IV PUSH SCH (08:36)
[2017-07-21] MEDS: FAMOTIDINE 20 MG/2 ML VIAL IV PUSH SCH ×2 (08:36→20:48)
[2017-07-21] MEDS: DOCUSATE SODIUM 50 MG/SENNA 8.6 MG TAB PO SCH ×2 (08:36→20:48)
[2017-07-21] MEDS: NICOTINE 21 MG/24 HR PATCH T-DERMAL SCH (08:37)
[2017-07-21] MEDS: REMOVE OLD PATCH T-DERMAL SCH (08:37)
[2017-07-21] MEDS ORDERED: VANCOMYCIN INJ 1,000 MG in SODIUM CHLOR 0.9% 250 ML INJ 250 ML IV SCH (09:30)
[2017-07-21] MEDS ORDERED: Vancomycin Consult Pharmacy 1 EA OTHER SCH (09:30)
[2017-07-21] MEDS: PIPERACIL-TAZO 4.5 GM PREMIX 100 ML IV SCH ×2 (10:00→16:19)
[2017-07-21 11:14] LABS: AUTOMATED NEUTROPHIL # 10.4 TH/MM3 (1.8-7.7); HEMATOCRIT 47.3 % (39.0-51.0); HEMO FLAGS DIFF FINAL; LYMPH % 7.2 % (9.0-44.0); LYMPHOCYTE # 0.8 TH/MM3 (1.0-4.8); MEAN CELL VOLUME 98.8 FL (80.0-100.0); MEAN CORPUSCULAR HEMOGLOBIN 32.6 PG (27.0-34.0); MONO % 3.6 % (0.0-8.0); NEUT % 89.2 % (16.0-70.0); PLATELET COUNT 218 TH/MM3 (150-450); RED BLOOD COUNT 4.79 MIL/MM3 (4.50-5.90); RED CELL DISTRIBUTION WIDTH 13.6 % (11.6-17.2); WHITE BLOOD COUNT 11.6 TH/MM3 (4.0-11.0)
[2017-07-21 11:18] LABS: HEMOGLOBIN A1a 0.9 %; HEMOGLOBIN A1b 1.2 %; HEMOGLOBIN Ao 85.2 %; HEMOGLOBIN LA1C 1.7 %; HEMOGLOBIN P3 3.7 %
[2017-07-21 11:49] LABS: ALT (GPT) 62 U/L (12-78); ANION GAP 7 MEQ/L (5-15); AST (GOT) 14 U/L (15-37); BICARBONATE 31.8 MEQ/L (21.0-32.0); BLOOD UREA NITROGEN 20 MG/DL (7-18); CHLORIDE 98 MEQ/L (98-107); GLOMERULAR FILTRATION RATE 88 ML/MIN (>89); POTASSIUM 4.1 MEQ/L (3.5-5.1); SODIUM (NA) 137 MEQ/L (136-145)
[2017-07-21 11:51] LABS: ALKALINE PHOSPHATASE 50 U/L (45-117); TOTAL BILIRUBIN ADULT 0.6 MG/DL (0.2-1.0)
[2017-07-21] MEDS: VANCOMYCIN INJ 2,000 MG in SODIUM CHLORID 0.9% 500 ML INJ 500 ML IV SCH ×2 (11:53→23:26)
--- NOTE | 2017-07-21 13:17 | HHI.PR ---
Subjective Remarks Deferred entry - patient seen at 10: 50 am Patient currently on venti mask at 5 liters - sating 91% patient states sob is improving denies fevers/chills Patient had a good urine output Objective Vitals Vital Signs Date Time Temp Pulse Resp B/P (MAP) Pulse Ox O2 Delivery O2 Flow Rate FiO2 07/21/17 11:44 94 Simple Mask 8.00 07/21/17 09:00 91 Nasal Cannula 5.00 07/21/17 08:12 90 BiPAP 45 07/21/17 08:12 90 45 07/21/17 08:00 60 07/21/17 06:00 63 07/21/17 04:16 92 45 07/21/17 04:00 61 07/21/17 04:00 98.4 63 16 111/59 (76) 92 07/21/17 02:00 61 07/21/17 00:25 93 45 07/21/17 00:00 63 07/21/17 00:00 98.0 65 19 102/57 (72) 92 07/20/17 22:00 70 07/20/17 20:31 90 Simple Mask 6.00 07/20/17 20:00 71 07/20/17 20:00 98.6 84 26 103/58 (73) 90 07/20/17 18:00 90 07/20/17 16:45 93 Simple Mask 7.00 07/20/17 16:00 94 07/20/17 16:00 98.3 94 23 141/74 (96) 94 07/20/17 14:00 86 I/O 07/20/17 07/20/17 07/20/17 07/21/17 07/21/17 07/21/17 07:00 15:00 23:00 07:00 15:00 23:00 Intake Total 200 ml 840 ml 350 ml Output Total 950 ml 1300 ml 3100 ml Balance -750 ml -460 ml -2750 ml Intake Oral 200 ml 840 ml 350 ml Output Urine Total 950 ml 1300 ml 3100 ml # Bowel Movements 1 2 0 Result Diagram: 07/21/17 1042 07/21/17 1042 Imaging Last Impressions Chest X-Ray 07/21/17 0600 Signed Impressions: Service Date/Time: Friday, July 21, 2017 02:09 - CONCLUSION: Mild infiltrate and effusion developing of the right lung base. Alexsander Julien MD CT Angiography 07/19/17 1509 Signed Impressions: Service Date/Time: Wednesday, July 19, 2017 16:01 - CONCLUSION: Suspicious for mild congestive failure There is no central pulmonary emboli. Duglas Johnson MD FACR Objective Remarks AAOx3, not in respiratory distress On ventimask Clear to auscultation of BL lung chaney with improved air movement. No wheezing , rhonchi or crackles auscultated. S1S2 +, RRR, no MRG Bowel sounds are present, abdomen is obese, nontender to palpation. No edema in lower extremities good peripheral pulses in upper and lowe extremities Procedures None Medications and IVs Current Medications Medications (Trade) Dose Ordered Sig/Chace Route Start Time Stop Time Status Last Admin (Narcan Inj) 0.4 mg UNSCH PRN IV 07/17/17 20:30 (NS Flush) 2 ml UNSCH PRN .XX 07/18/17 01:30 (NS Flush) 2 ml BID .XX 07/18/17 09:00 07/20/17 21:08 (Tylenol) 650 mg Q6H PRN PO 07/18/17 01:30 (Pepcid Inj) 20 mg Q12HR IV PUSH 07/18/17 09:00 07/21/17 08:36 (Zofran Inj) 4 mg Q6H PRN IV 07/18/17 01:30 (Ambien) 5 mg HS PRN PO 07/18/17 01:30 (Duoneb Neb) 1 ampule Q4HR NEB INH 07/18/17 04:00 07/21/17 11:44 (Duoneb Neb) 1 ampule Q2HR NEB PRN INH 07/18/17 01:30 07/18/17 01:54 (Lovenox Inj) 40 mg Q24H SQ 07/18/17 03:00 07/21/17 06:08 Miscellaneous Information 1 Q361D XX 07/18/17 01:30 (Chlorhexidine 2% Cloth) 3 pack Taper DAILY@04 TOP 07/18/17 04:00 07/14/18 03:59 07/21/17 04:00 (Chlorhexidine 2% Cloth) 3 pack UNSCH PRN TOP 07/18/17 01:30 (Shauna-Colace) 1 tab BID PO 07/18/17 09:00 07/19/17 09:00 (Milk Of Magnesia Liq) 30 ml Q12H PRN PO 07/18/17 01:30 (Senokot) 17.2 mg Q12H PRN PO 07/18/17 01:30 (Dulcolax Supp) 10 mg DAILY PRN RECTAL 07/18/17 01:30 (Lactulose Liq) 30 ml DAILY PRN PO 07/18/17 01:30 Miscellaneous Information Patient in critical care unit? Ass... Q361D .XX 07/18/17 01:45 (Chlorhexidine 2% Cloth) 3 pack DAILY@04 TOPICAL 07/18/17 04:00 07/22/17 04:01 (Chlorhexidine 2% Cloth) 3 pack UNSCH PRN TOPICAL 07/18/17 01:45 07/23/17 01:36 (Habitrol 21 Mg Patch.24 Hr) 1 patch DAILY T-DERMAL 07/19/17 14:00 Miscellaneous Information 1 DAILY T-DERMAL 07/20/17 09:00 (SoluMEDROL INJ) 40 mg Q8HR IV 07/19/17 14:00 07/21/17 11:53 (D50w (Vial) Inj) 50 ml UNSCH PRN IV 07/20/17 13:15 (Glucagon Inj) 1 mg UNSCH PRN OTHER 07/20/17 13:15 (NovoLOG SUPPLEMENTAL SCALE) 1 ACHS SLIDING SCALE SQ 07/20/17 16:00 07/21/17 11:00 Piperacillin Sod/ Tazobactam Sod 100 ml @ 200 mls/hr Q8H IV 07/21/17 10:00 07/21/17 10:00 Pharmacy Profile Note 0 ml @ 0 mls/hr UNSCH OTHER 07/21/17 09:30 (Lasix Inj) 40 mg DAILY IV PUSH 07/22/17 09:00 Vancomycin HCl 2000 mg/Sodium Chloride 520 ml @ 250 mls/hr Q12H IV 07/21/17 12:00 07/21/17 11:53 Miscellaneous Information SPECIFIC LAB TO BE WILBER... ONCE ONCE .XX 07/23/17 11:45 07/23/17 11:46 Urinary Catheter: No A/P Problem List: (1) Acute hypercapnic respiratory failure ICD Code: J96.02 - Acute respiratory failure with hypercapnia Status: Acute Plan: The patient was admitted to the intensive care unit and placed on BiPAP for support. ABG on admission had a pH of 7.38, PCO2 55 and PO2 69 started on Iv Solumedrol. Patient initially started on IV Zosyn and Vancomycin which were discontinued and patient started on Levaquin. Continue BiPAP as needed and supplemental oxygen to keep oxygen saturation more than 92%. Appreciate pulmonary recommendations. We'll follow-up his recommendations. 07/19 respiratory failure improving. Patient down to 6 L on Ventimask and off BiPAP. CT of the chest was negative for PE but suspicious for congestive heart failure. I will start the patient IV Lasix 40 mg IV twice a day, check BNP and order and to the echocardiogram to assessed heart function and anatomy. 07/20 Patient still has increased oxygen requirement. Chest x-ray obtained on pulses 17 shows mild infiltrate and effusion in the right lung base. I will broaden IV antibiotic therapy and cover for HCAP and aspiration pneumonia. I will start the patient IV vancomycin and IV Zosyn and discontinue IV Levaquin. Check a sputum culture. (2) COPD with acute exacerbation ICD Code: J44.1 - Chronic obstructive pulmonary disease with (acute) exacerbation Status: Acute Plan: As above. Continue with Solu-Medrol and taper the dose to 40 mg IV every 12 hours. Continue BiPAP as needed Pulmonary following. (3) Tobacco abuse disorder ICD Code: Z72.0 - Tobacco use Status: Chronic Plan: Advised smoking cessation. (4) Leukocytosis ICD Code: D72.829 - Elevated white blood cell count, unspecified Status: Acute Plan: WBC increased from 7.6-14.0. Likely secondary to stress and a steroid use. 07/20 WBC slightly decreased from 14 K to 12 K. Patient has no fevers. Continue to monitor CBC with differential. 07/21 WBC trending down - now 11.6K (5) Obesity hypoventilation syndrome ICD Code: E66.2 - Morbid (severe) obesity with alveolar hypoventilation Status: Chronic Plan: Advised weight loss. Continue BiPAP as needed. (6) Hyperglycemia ICD Code: R73.9 - Hyperglycemia, unspecified Status: Acute Plan: No prior history of diabetes mellitus. Likely steroid-induced. . Continue on SSI with insulin NovoLog and monitor Accu-Cheks. Check hemoglobin A1c Blood sugars stable. (7) CHF (congestive heart failure) ICD Code: I50.9 - Heart failure, unspecified Plan: As evidence on CTA of the chest described above. Unspecified type at this moment. 07/21 2D echocardiogram ordered and pending. Patient on 40 mg IV Lasix BID - decrease dose to 40 mg po daily. Assessment and Plan GI prophylaxis: PPI. DVT prophylaxis: Continue Lovenox subcutaneously and SCDs. Discharge Planning Continue to monitor in intensive care unit. Discussed with RN. Patient still with elevated O2 requirements. Problem Qualifiers (1) Leukocytosis: Qualified Codes: D72.829 - Elevated white blood cell count, unspecified (2) CHF (congestive heart failure): Qualified Codes: I50.9 - Heart failure, unspecified David Martinez MD Jul 21, 2017 13:17
--- NOTE | 2017-07-21 17:17 | HHI.PR ---
Subjective Remarks Remains on High FIo2 . Used Bipap last nite. No chest pain. Or fever. CT shows possible CHF. On IV lasix. Objective Vital Signs Date Time Temp Pulse Resp B/P (MAP) Pulse Ox O2 Delivery O2 Flow Rate FiO2 07/21/17 16:00 82 07/21/17 16:00 98.6 82 27 124/66 (85) 94 07/21/17 14:00 73 07/21/17 12:00 98.2 76 23 98/54 (69) 92 07/21/17 12:00 76 07/21/17 11:44 94 Simple Mask 8.00 07/21/17 11:00 72 07/21/17 09:00 91 Nasal Cannula 5.00 07/21/17 08:12 90 BiPAP 45 07/21/17 08:12 90 45 07/21/17 08:00 98.2 60 15 124/66 (85) 94 07/21/17 08:00 60 07/21/17 06:00 63 07/21/17 04:16 92 45 07/21/17 04:00 61 07/21/17 04:00 98.4 63 16 111/59 (76) 92 07/21/17 02:00 61 07/21/17 00:25 93 45 07/21/17 00:00 63 07/21/17 00:00 98.0 65 19 102/57 (72) 92 07/20/17 22:00 70 07/20/17 20:31 90 Simple Mask 6.00 07/20/17 20:00 71 07/20/17 20:00 98.6 84 26 103/58 (73) 90 07/20/17 18:00 90 I/O 07/20/17 07/20/17 07/20/17 07/21/17 07/21/17 07/21/17 07:00 15:00 23:00 07:00 15:00 23:00 Intake Total 200 ml 840 ml 350 ml 100 ml 332 ml Output Total 950 ml 1300 ml 3100 ml 1901 ml Balance -750 ml -460 ml -2750 ml -1801 ml 332 ml Intake Oral 200 ml 840 ml 350 ml IV Total 100 ml 332 ml Output Urine Total 950 ml 1300 ml 3100 ml 1901 ml # Bowel Movements 1 2 0 Result Diagram: 07/21/17 1042 07/21/17 1042 Objective Remarks GENERAL: This is a moderately obese middle-aged white male who is alert and cooperative and face was flushed. He has mild peripheral Edema HEAD, EYES, EARS, NOSE, THROAT: Head normocephalic. The pupils are reactive. Tongue is moist. Throat is clear. Nasal mucosa edematous. NECK: The neck is supple. No venous distention. Trachea is midline. CHEST: Distant breath sounds with expiratory wheezes throughout both lung chaney. Prolonged expirations.Occ crackles at bases. HEART: Heart sounds are irregular. S1-S2. No murmur. No S3. ABDOMEN: Abdomen soft and benign. No masses. No organomegaly or tenderness. The bowel sounds are active. EXTREMITIES: Mild edema decreased peripheral pulses. No significant edema. NEUROLOGIC: Reflexes are 1+. No gross motor deficits. Cranial nerves are grossly intact. RECTAL: Rectal exam is deferred. Assessment and Plan Assessment and Plan IMPRESSION: 1. Acute respiratory failure. 2. COPD. 3. Chronic bronchitis. 4. Probable obstructive sleep apnea syndrome. 5. History of hypertension. 6. R/O PE 7. CHF Plan : 1. Continue antibiotics, Levaquin IV 2. Wean o2 to ventimask 50 % 3. Bipap at HS 12/5 cm, 40 % FIO2 4. Nebs qid , duoneb. 5. Lovenox 40 mg S/Q daily 6. Solumedrol 40 mg IV q8h 7. Lasix 40 mg IV daily and KCl 20 meq. 8. BMP,CXR in am Alisha Phan MD Jul 21, 2017 17:17
--- NOTE | 2017-07-21 20:32 | ECHRPT ---
Indication: SHORTNESS OF BREATH CONCLUSIONS Normal left ventricular size. Mild concentric left ventricular hypertrophy. The left ventricular systolic function is normal with an estimated ejection fraction in the range of 55-60%. No regional wall motion abnormalities are present. The left atrial size is kixu-[id number] dilated. The right atrial size is [id number] dilated. No atrial level shunt is demonstrated by color flow Doppler interrogation. The aortic root and proximal ascending aorta are not well visualized. Trace mitral valve regurgitation. No mitral valve stenosis. Aortic valve sclerosis is present. No aortic valve regurgitation. No aortic valve stenosis. There is trace tricuspid valve regurgitation. Normal estimated pulmonary pressures. The pulmonary valve is not well visualized. The inferior vena cava (IVC) is normal in size. BP: 111 / 59 HR: Rhythm: Sinus MEASUREMENTS (Male / Female) Normal Values Technical Quality:Very technically difficult study 2D ECHO LV Diastolic Diameter PLAX 4.1 cm 4.2 - 5.9 / 3.9 - 5.3 cm LV Systolic Diameter PLAX 3.1 cm IVS Diastolic Thickness 1.1 cm 0.6 - 1.0 / 0.6 - 0.9 cm LVPW Diastolic Thickness 1.1 cm 0.6 - 1.0 / 0.6 - 0.9 cm LV Relative Wall Thickness 0.5 LVOT Diameter 2.0 cm Aortic Root Diameter 2.9 cm LA Systolic Diameter LX 3.4 cm 3.0 - 4.0 / 2.7 - 3.8 cm M-MODE AV Cusp Separation MM 1.9 cm DOPPLER AV Peak Velocity 138.0 cm/s AV Peak Gradient 7.6 mmHg AV Mean Gradient 5.0 mmHg AV Velocity Time Integral 27.5 cm LVOT Peak Velocity 141.0 cm/s LVOT Peak Gradient 8.0 mmHg LVOT Velocity Time Integral 25.3 cm AV Area Cont Eq vti 2.9 cm AV Area Cont Eq pk 3.2 cm Mitral E Point Velocity 80.9 cm/s Mitral A Point Velocity 62.7 cm/s Mitral E to A Ratio 1.3 LV E' Lateral Velocity 13.5 cm/s Mitral E to LV E' Lateral Ratio 6.0 LV E' Septal Velocity 9.4 cm/s Mitral E to LV E' Septal Ratio 8.6 TR Peak Velocity 223.0 cm/s TR Peak Gradient 19.9 mmHg PV Peak Velocity 107.0 cm/s PV Peak Gradient 4.6 mmHg FINDINGS LEFT VENTRICLE Normal left ventricular size. Mild concentric left ventricular hypertrophy. The left ventricular systolic function is normal with an estimated ejection fraction in the range of 55-60%. No regional wall motion abnormalities are present. Left ventricular diastolic function parameters are normal. RIGHT VENTRICLE Normal right ventricular size and systolic function. LEFT ATRIUM The left atrial size is bpyv-ix-hvnbetgckt dilated. RIGHT ATRIUM The right atrial size is rfmo-ao-vrdqtsgcca dilated. ATRIAL SEPTUM No atrial level shunt is demonstrated by color flow Doppler interrogation. AORTA The aortic root and proximal ascending aorta are not well visualized. MITRAL VALVE Structurally normal mitral valve. Trace mitral valve regurgitation. No mitral valve stenosis. AORTIC VALVE Aortic valve sclerosis is present. No aortic valve regurgitation. No aortic valve stenosis. TRICUSPID VALVE Structurally normal tricuspid valve. There is trace tricuspid valve regurgitation. Normal estimated pulmonary pressures. PULMONARY VALVE The pulmonary valve is not well visualized. VESSELS The inferior vena cava (IVC) is normal in size. Fareed Oliva MD, FACC, [facility] [place] (Electronically Signed) Final Date:21 July 2017 20:31
[2017-07-21] MEDS: ZOLPIDEM TARTRATE 5 MG TAB PO PRN (20:47)
[2017-07-22] VITALS (15 sets, daily range): BP systolic 109–134; BP diastolic 55–79; PULSE 60–82; RESP 15–24; TEMP 97.9–98.6; O2SAT 86–100
[2017-07-22] MEDS: PIPERACIL-TAZO 4.5 GM PREMIX 100 ML IV SCH ×3 (01:15→18:43)
[2017-07-22] MEDS: CHLORHEXIDINE GLUCONATE 2 % 1 PACK (2 CLOTHS) TOP SCH (01:15)
[2017-07-22] MEDS: ENOXAPARIN SODIUM 40 MG/0.4 ML SYRINGE SQ SCH (01:15)
[2017-07-22] MEDS: CHLORHEXIDINE GLUCONATE 2 % 1 PACK (2 CLOTHS)(taper/protocol) TOPICAL SCH (01:15)
[2017-07-22] MEDS: methylPREDNISolone SOD SUCC 40 MG/1 ML VIAL IV SCH ×3 (04:16→21:00)
[2017-07-22] MEDS: RESP: ALBUTEROL 2.5 MG/IPRATROPIUM 0.5 MG NEB (PRN) INH ×2 (04:29→19:27)
[2017-07-22 05:52] LABS: HEMATOCRIT 47.4 % (39.0-51.0); MEAN CELL VOLUME 98.1 FL (80.0-100.0); MEAN CORPUSCULAR HEMOGLOBIN 32.3 PG (27.0-34.0); MEAN CORPUSCULAR HGB CONC 32.9 % (32.0-36.0); PLATELET COUNT 219 TH/MM3 (150-450); RED BLOOD COUNT 4.83 MIL/MM3 (4.50-5.90); RED CELL DISTRIBUTION WIDTH 13.5 % (11.6-17.2); REVIEW FLAG FINAL; WHITE BLOOD COUNT 12.8 TH/MM3 (4.0-11.0)
[2017-07-22 06:12] LABS: BICARBONATE 31.4 MEQ/L (21.0-32.0); POTASSIUM 4.4 MEQ/L (3.5-5.1)
[2017-07-22] MEDS: INSULIN ASPART SUPPLEMENTAL SCALE SQ SCH ×4 (06:24→21:00)
--- NOTE | 2017-07-22 06:30 | RADRPT ---
EXAM DATE/TIME: 07/22/2017 05:58 [facility] COMPARISON: CHEST SINGLE AP, July 21, 2017, 2:09. INDICATIONS : Infiltrate. MEDICAL HISTORY : None. SURGICAL HISTORY : None. ENCOUNTER: Subsequent ACUITY: 4 - 6 days PAIN SCORE: Non-responsive. LOCATION: Bilateral chest FINDINGS: No cardiac silhouette is enlarged with prominence of the central pulmonary vasculature. Mild diffuse interstitial prominence with minimal right lower lung zone airspace disease. Remainder of the exam is unchanged. CONCLUSION: 1. Cardiomegaly with mild positive fluid balance. 2. Trace right lower lobe atelectasis. 3. No significant interval change. Kendall Le MD on July 22, 2017 at 6:27 Board Certified Radiologist. This report was verified electronically.
[2017-07-22] MEDS: REMOVE OLD PATCH T-DERMAL SCH (09:00)
[2017-07-22] MEDS: DOCUSATE SODIUM 50 MG/SENNA 8.6 MG TAB PO SCH ×3 (09:00→21:01)
[2017-07-22] MEDS: NICOTINE 21 MG/24 HR PATCH T-DERMAL SCH (09:00)
[2017-07-22] MEDS ORDERED: FUROSEMIDE 40 MG/4 ML VIAL IV PUSH SCH (09:00)
[2017-07-22] MEDS: SODIUM CHLORIDE 0.9% FLUSH 10 ML FLUSH SCH ×2 (09:19→21:02)
[2017-07-22] MEDS: FAMOTIDINE 20 MG/2 ML VIAL IV PUSH SCH ×2 (09:19→21:02)
[2017-07-22] MEDS: VANCOMYCIN INJ 2,000 MG in SODIUM CHLORID 0.9% 500 ML INJ 500 ML IV SCH (11:35)
--- NOTE | 2017-07-22 15:26 | HHI.PR ---
Subjective Remarks As per RN report the patient's oxygen saturation went down to 87 on nasal canula patient has good urine output denies cp sob better as per patient Objective Vitals Vital Signs Date Time Temp Pulse Resp B/P (MAP) Pulse Ox O2 Delivery O2 Flow Rate FiO2 07/22/17 14:00 74 07/22/17 13:13 89 Venturi Mask 6.00 50 07/22/17 12:00 72 07/22/17 12:00 98.0 72 23 109/55 (73) 86 07/22/17 10:00 68 07/22/17 08:14 100 45 07/22/17 08:00 63 07/22/17 08:00 98.6 63 16 134/74 (94) 93 07/22/17 04:26 92 45 07/22/17 04:00 98.4 60 15 120/79 (93) 94 07/22/17 00:00 98.0 65 24 127/63 (84) 93 07/21/17 23:42 92 45 07/21/17 22:14 92 45 07/21/17 21:15 92 Venturi Mask 50 07/21/17 20:00 98.1 84 28 135/68 (90) 90 07/21/17 18:00 79 07/21/17 16:00 82 07/21/17 16:00 98.6 82 27 124/66 (85) 94 I/O 07/21/17 07/21/17 07/21/17 07/22/17 07/22/17 07/22/17 07:00 15:00 23:00 07:00 15:00 23:00 Intake Total 350 ml 100 ml 1912 ml 480 ml 1240 ml Output Total 3100 ml 1901 ml 975 ml 1100 ml 2000 ml Balance -2750 ml -1801 ml 937 ml -620 ml -760 ml Intake Oral 350 ml 960 ml 480 ml IV Total 100 ml 952 ml 1240 ml Output Urine Total 3100 ml 1901 ml 975 ml 1100 ml 2000 ml # Bowel Movements 0 0 0 Result Diagram: 07/22/17 0520 07/22/17 0520 Imaging Last Impressions Chest X-Ray 07/22/17 0600 Signed Impressions: Service Date/Time: Saturday, July 22, 2017 05:58 - CONCLUSION: 1. Cardiomegaly with mild positive fluid balance. 2. Trace right lower lobe atelectasis. 3. No significant interval change. Kendall Le MD CT Angiography 07/19/17 1500 Signed Impressions: Service Date/Time: Wednesday, July 19, 2017 16:01 - CONCLUSION: Suspicious for mild congestive failure There is no central pulmonary emboli. Duglas Johnson MD FACR Objective Remarks AAOx3, not in respiratory distress On ventimask Clear to auscultation of BL lung chaney with improved air movement. No wheezing , rhonchi or crackles auscultated. S1S2 +, RRR, no MRG Bowel sounds are present, abdomen is obese, nontender to palpation. No edema in lower extremities good peripheral pulses in upper and lower extremities Procedures None Medications and IVs Current Medications Medications (Trade) Dose Ordered Sig/Chace Route Start Time Stop Time Status Last Admin (Narcan Inj) 0.4 mg UNSCH PRN IV 07/17/17 20:30 (NS Flush) 2 ml UNSCH PRN .XX 07/18/17 01:30 (NS Flush) 2 ml BID .XX 07/18/17 09:00 07/22/17 09:19 (Tylenol) 650 mg Q6H PRN PO 07/18/17 01:30 (Pepcid Inj) 20 mg Q12HR IV PUSH 07/18/17 09:00 07/22/17 09:19 (Zofran Inj) 4 mg Q6H PRN IV 07/18/17 01:30 (Ambien) 5 mg HS PRN PO 07/18/17 01:30 07/21/17 20:47 (Duoneb Neb) 1 ampule Q2HR NEB PRN INH 07/18/17 01:30 07/22/17 04:29 (Lovenox Inj) 40 mg Q24H SQ 07/18/17 03:00 07/22/17 01:15 Miscellaneous Information 1 Q361D XX 07/18/17 01:30 (Chlorhexidine 2% Cloth) 3 pack Taper DAILY@04 TOP 07/18/17 04:00 07/14/18 03:59 07/22/17 01:15 (Chlorhexidine 2% Cloth) 3 pack UNSCH PRN TOP 07/18/17 01:30 (Shauna-Colace) 1 tab BID PO 07/18/17 09:00 07/21/17 20:48 (Milk Of Magnesia Liq) 30 ml Q12H PRN PO 07/18/17 01:30 (Senokot) 17.2 mg Q12H PRN PO 07/18/17 01:30 (Dulcolax Supp) 10 mg DAILY PRN RECTAL 07/18/17 01:30 (Lactulose Liq) 30 ml DAILY PRN PO 07/18/17 01:30 Miscellaneous Information Patient in critical care unit? Ass... Q361D .XX 07/18/17 01:45 (Chlorhexidine 2% Cloth) 3 pack UNSCH PRN TOPICAL 07/18/17 01:45 07/23/17 01:36 (Habitrol 21 Mg Patch.24 Hr) 1 patch DAILY T-DERMAL 07/19/17 14:00 Miscellaneous Information 1 DAILY T-DERMAL 07/20/17 09:00 (SoluMEDROL INJ) 40 mg Q8HR IV 07/19/17 14:00 07/22/17 13:33 (D50w (Vial) Inj) 50 ml UNSCH PRN IV 07/20/17 13:15 (Glucagon Inj) 1 mg UNSCH PRN OTHER 07/20/17 13:15 (NovoLOG SUPPLEMENTAL SCALE) 1 ACHS SLIDING SCALE SQ 07/20/17 16:00 07/22/17 10:25 Piperacillin Sod/ Tazobactam Sod 100 ml @ 200 mls/hr Q8H IV 07/21/17 10:00 07/22/17 10:22 Pharmacy Profile Note 0 ml @ 0 mls/hr UNSCH OTHER 07/21/17 09:30 (Lasix Inj) 40 mg DAILY IV PUSH 07/22/17 09:00 07/22/17 09:19 Vancomycin HCl 2000 mg/Sodium Chloride 520 ml @ 250 mls/hr Q12H IV 07/21/17 12:00 07/22/17 11:35 Miscellaneous Information SPECIFIC LAB TO BE WILBER... ONCE ONCE .XX 07/23/17 11:45 07/23/17 11:46 A/P Problem List: (1) Acute hypercapnic respiratory failure ICD Code: J96.02 - Acute respiratory failure with hypercapnia Status: Acute Plan: The patient was admitted to the intensive care unit and placed on BiPAP for support. ABG on admission had a pH of 7.38, PCO2 55 and PO2 69 started on Iv Solumedrol. Patient initially started on IV Zosyn and Vancomycin which were discontinued and patient started on Levaquin. Continue BiPAP as needed and supplemental oxygen to keep oxygen saturation more than 92%. Appreciate pulmonary recommendations. We'll follow-up his recommendations. 07/19 respiratory failure improving. Patient down to 6 L on Ventimask and off BiPAP. CT of the chest was negative for PE but suspicious for congestive heart failure. 07/21 I will start the patient IV Lasix 40 mg IV twice a day, check BNP and order and to the echocardiogram to assessed heart function and anatomy. Patient still has increased oxygen requirement. Chest x-ray obtained on 07/21 showed mild infiltrate and effusion in the right lung base. I will broaden IV antibiotic therapy and cover for HCAP and aspiration pneumonia. I will start the patient IV vancomycin and IV Zosyn and discontinue IV Levaquin. Check a sputum culture. 07/22 Patient still with elevated o2 requirements. Continue IV antibiotics and increase Lasix to BID since CXR still shows pulmonary congestion ( x ray reviewed by me ). Sputum culture negative. (2) COPD with acute exacerbation ICD Code: J44.1 - Chronic obstructive pulmonary disease with (acute) exacerbation Status: Acute Plan: As above. Continue with Solu-Medrol and taper the dose to 40 mg IV every 12 hours. Continue BiPAP as needed Pulmonary following. (3) Tobacco abuse disorder ICD Code: Z72.0 - Tobacco use Status: Chronic Plan: Advised smoking cessation. (4) Leukocytosis ICD Code: D72.829 - Elevated white blood cell count, unspecified Status: Acute Plan: WBC increased from 7.6-14.0. Likely secondary to stress and a steroid use. 07/20 WBC slightly decreased from 14 K to 12 K. Patient has no fevers. Continue to monitor CBC with differential. 07/22 WBC stable, continue to monitor. (5) Obesity hypoventilation syndrome ICD Code: E66.2 - Morbid (severe) obesity with alveolar hypoventilation Status: Chronic Plan: Advised weight loss. Continue BiPAP as needed. (6) Hyperglycemia ICD Code: R73.9 - Hyperglycemia, unspecified Status: Acute Plan: No prior history of diabetes mellitus. Likely steroid-induced. . Continue on SSI with insulin NovoLog and monitor Accu-Cheks. Check hemoglobin A1c Blood sugars stable. (7) CHF (congestive heart failure) ICD Code: I50.9 - Heart failure, unspecified Plan: As evidence on CTA of the chest described above. Unspecified type at this moment. 07/22 Echo cardiac shows mild concentric left ventricle hypertrophy with normal systolic function with an EF of 55-60%. Patient likely has acute diastolic heart failure. We'll continue diuresis with IV Lasix, however will increase the dose to twice a day for now. Assessment and Plan GI prophylaxis: PPI. DVT prophylaxis: Continue Lovenox subcutaneously and SCDs. Discharge Planning Continue to monitor in intensive care unit. Discussed with RN. Patient still with elevated O2 requirements. Problem Qualifiers (1) Leukocytosis: Qualified Codes: D72.829 - Elevated white blood cell count, unspecified (2) CHF (congestive heart failure): Qualified Codes: I50.9 - Heart failure, unspecified David Martinez MD Jul 22, 2017 15:26
--- NOTE | 2017-07-22 18:56 | HHI.PR ---
Subjective Remarks Remains on High FIo2 with a Simple mask. Used Bipap last nite. No chest pain. Or fever. CT shows possible CHF. On IV lasix. BID Objective Vital Signs Date Time Temp Pulse Resp B/P (MAP) Pulse Ox O2 Delivery O2 Flow Rate FiO2 07/22/17 18:00 71 07/22/17 16:00 98.4 74 23 111/63 (79) 88 07/22/17 16:00 74 07/22/17 14:00 74 07/22/17 13:13 89 Venturi Mask 6.00 50 07/22/17 12:00 72 07/22/17 12:00 98.0 72 23 109/55 (73) 86 07/22/17 10:00 68 07/22/17 08:14 100 45 07/22/17 08:00 63 07/22/17 08:00 98.6 63 16 134/74 (94) 93 07/22/17 04:26 92 45 07/22/17 04:00 98.4 60 15 120/79 (93) 94 07/22/17 00:00 98.0 65 24 127/63 (84) 93 07/21/17 23:42 92 45 07/21/17 22:14 92 45 07/21/17 21:15 92 Venturi Mask 50 07/21/17 20:00 98.1 84 28 135/68 (90) 90 I/O 07/21/17 07/21/17 07/21/17 07/22/17 07/22/17 07/22/17 06:59 14:59 22:59 06:59 14:59 22:59 Intake Total 350 ml 100 ml 1912 ml 480 ml 1240 ml 850 ml Output Total 3100 ml 1901 ml 975 ml 1100 ml 2000 ml 1000 ml Balance -2750 ml -1801 ml 937 ml -620 ml -760 ml -150 ml Intake Oral 350 ml 960 ml 480 ml 750 ml IV Total 100 ml 952 ml 1240 ml 100 ml Output Urine Total 3100 ml 1901 ml 975 ml 1100 ml 2000 ml 1000 ml # Bowel Movements 0 0 0 2 Result Diagram: 07/22/17 0520 07/22/17 0520 Objective Remarks GENERAL: This is a moderately obese middle-aged white male who is alert and cooperative and face was flushed. He has mild peripheral Edema HEAD, EYES, EARS, NOSE, THROAT: Head normocephalic. The pupils are reactive. Tongue is moist. Throat is clear. Nasal mucosa clear NECK: The neck is supple. No venous distention. Trachea is midline. CHEST: Distant breath sounds with expiratory wheezes throughout both lung chaney. Prolonged expirations.Fine crackles at bases. HEART: Heart sounds are irregular. S1-S2. No murmur. No S3. ABDOMEN: Abdomen soft and benign. No masses. No organomegaly or tenderness. The bowel sounds are active. EXTREMITIES: Mild edema decreased peripheral pulses. No significant edema. NEUROLOGIC: Reflexes are 1+. No gross motor deficits. RECTAL: Rectal exam is deferred. Assessment and Plan Assessment and Plan IMPRESSION: 1. Acute respiratory failure. 2. COPD. 3. Chronic bronchitis. 4. Probable obstructive sleep apnea syndrome. 5. History of hypertension. 6. R/O PE 7. CHF Plan : 1. Continue antibiotics, Levaquin IV 2. Wean o2 to ventimask 40 % 3. Bipap at HS 12/5 cm, 40 % FIO2 4. Nebs qid , duoneb. 5. Lovenox 40 mg S/Q daily 6. Solumedrol 40 mg IV q8h 7. Lasix 40 mg IV BID and KCl 20 meq. 8. CBC ,BMP,CXR in am Alisha Phan MD Jul 22, 2017 18:56
[2017-07-22] MEDS: FUROSEMIDE 40 MG/4 ML VIAL IV PUSH SCH (21:01)
[2017-07-23] VITALS (17 sets, daily range): BP systolic 110–125; BP diastolic 60–77; PULSE 57–82; RESP 16–23; TEMP 97.2–98.8; O2SAT 88–94
[2017-07-23] MEDS: PIPERACIL-TAZO 4.5 GM PREMIX 100 ML IV SCH ×3 (03:13→17:45)
[2017-07-23] MEDS: ENOXAPARIN SODIUM 40 MG/0.4 ML SYRINGE SQ SCH (03:13)
[2017-07-23] MEDS: CHLORHEXIDINE GLUCONATE 2 % 1 PACK (2 CLOTHS) TOP SCH (03:13)
[2017-07-23] MEDS: methylPREDNISolone SOD SUCC 40 MG/1 ML VIAL IV SCH ×3 (05:21→21:43)
[2017-07-23 06:25] LABS: AUTOMATED NEUTROPHIL # 10.7 TH/MM3 (1.8-7.7); HEMATOCRIT 50.5 % (39.0-51.0); HEMO FLAGS DIFF FINAL; LYMPH % 8.9 % (9.0-44.0); LYMPHOCYTE # 1.1 TH/MM3 (1.0-4.8); MEAN CELL VOLUME 98.6 FL (80.0-100.0); MEAN CORPUSCULAR HEMOGLOBIN 32.7 PG (27.0-34.0); MEAN CORPUSCULAR HGB CONC 33.2 % (32.0-36.0); MONO % 4.7 % (0.0-8.0); NEUT % 86.4 % (16.0-70.0); PLATELET COUNT 221 TH/MM3 (150-450); RED BLOOD COUNT 5.12 MIL/MM3 (4.50-5.90); RED CELL DISTRIBUTION WIDTH 13.3 % (11.6-17.2); WHITE BLOOD COUNT 12.4 TH/MM3 (4.0-11.0)
[2017-07-23 06:44] LABS: ANION GAP 8 MEQ/L (5-15); AST (GOT) 11 U/L (15-37); BICARBONATE 32.7 MEQ/L (21.0-32.0); BLOOD UREA NITROGEN 26 MG/DL (7-18); CHLORIDE 94 MEQ/L (98-107); GLOMERULAR FILTRATION RATE 93 ML/MIN (>89); MAGNESIUM 2.7 MG/DL (1.5-2.5); POTASSIUM 4.3 MEQ/L (3.5-5.1); SODIUM (NA) 135 MEQ/L (136-145)
[2017-07-23] MEDS: INSULIN ASPART SUPPLEMENTAL SCALE SQ SCH ×4 (07:00→21:00)
[2017-07-23 07:30] LABS: ALKALINE PHOSPHATASE 55 U/L (45-117); ALT (GPT) 56 U/L (12-78); TOTAL BILIRUBIN ADULT 0.9 MG/DL (0.2-1.0)
[2017-07-23] MEDS: NICOTINE 21 MG/24 HR PATCH T-DERMAL SCH (09:00)
[2017-07-23] MEDS: DOCUSATE SODIUM 50 MG/SENNA 8.6 MG TAB PO SCH ×2 (09:00→21:00)
[2017-07-23] MEDS: REMOVE OLD PATCH T-DERMAL SCH (09:00)
[2017-07-23] MEDS: FAMOTIDINE 20 MG/2 ML VIAL IV PUSH SCH ×2 (09:34→21:42)
[2017-07-23] MEDS: FUROSEMIDE 40 MG/4 ML VIAL IV PUSH SCH ×2 (09:34→21:42)
[2017-07-23] MEDS: SODIUM CHLORIDE 0.9% FLUSH 10 ML FLUSH SCH ×2 (09:35→21:42)
[2017-07-23] MEDS ORDERED: PHARMACY ORDERED LAB ONE (11:45)
--- NOTE | 2017-07-23 16:18 | HHI.PR ---
Subjective Remarks Patient seen at 11 am patint still on Ventimask denies cp sob is slightly improving denies diarrhea or abdominal pain Objective Vitals Vital Signs Date Time Temp Pulse Resp B/P (MAP) Pulse Ox O2 Delivery O2 Flow Rate FiO2 07/23/17 14:00 82 07/23/17 12:00 98.8 72 23 119/69 (86) 88 07/23/17 12:00 72 07/23/17 10:00 71 07/23/17 08:04 94 50 07/23/17 08:00 65 07/23/17 08:00 97.2 65 19 117/77 (90) 92 07/23/17 06:00 60 07/23/17 04:07 93 50 07/23/17 04:00 98.1 57 18 112/71 (85) 91 07/23/17 04:00 57 07/23/17 02:00 59 07/23/17 00:48 92 50 07/23/17 00:00 73 07/23/17 00:00 98.0 73 16 113/67 (82) 91 07/22/17 23:30 95 45 07/22/17 22:00 74 07/22/17 20:00 82 07/22/17 20:00 97.9 82 18 124/59 (80) 89 07/22/17 19:26 91 Venturi Mask 50 07/22/17 18:00 71 I/O 07/22/17 07/22/17 07/22/17 07/23/17 07/23/17 07/23/17 06:59 14:59 22:59 06:59 14:59 22:59 Intake Total 480 ml 1240 ml 850 ml 450 ml 350 ml Output Total 1100 ml 2000 ml 1000 ml 1100 ml 1275 ml Balance -620 ml -760 ml -150 ml -650 ml -925 ml Intake Oral 480 ml 750 ml 350 ml 250 ml IV Total 1240 ml 100 ml 100 ml 100 ml Output Urine Total 1100 ml 2000 ml 1000 ml 1100 ml 1275 ml # Bowel Movements 0 2 0 1 Result Diagram: 07/23/17 0511 07/23/17 0511 Imaging Last Impressions Chest X-Ray 07/22/17 0600 Signed Impressions: Service Date/Time: Saturday, July 22, 2017 05:58 - CONCLUSION: 1. Cardiomegaly with mild positive fluid balance. 2. Trace right lower lobe atelectasis. 3. No significant interval change. Kendall Le MD CT Angiography 07/19/17 1503 Signed Impressions: Service Date/Time: Wednesday, July 19, 2017 16:01 - CONCLUSION: Suspicious for mild congestive failure There is no central pulmonary emboli. Duglas Johnson MD FACR Objective Remarks AAOx3, not in respiratory distress On ventimask Clear to auscultation of BL lung chaney with improved air movement. No wheezing , rhonchi or crackles auscultated. S1S2 +, RRR, no MRG Bowel sounds are present, abdomen is obese, nontender to palpation. No edema in lower extremities good peripheral pulses in upper and lower extremities Procedures None Medications and IVs Current Medications Medications (Trade) Dose Ordered Sig/Chace Route Start Time Stop Time Status Last Admin (Narcan Inj) 0.4 mg UNSCH PRN IV 07/17/17 20:30 (NS Flush) 2 ml UNSCH PRN .XX 07/18/17 01:30 (NS Flush) 2 ml BID .XX 07/18/17 09:00 07/23/17 09:35 (Tylenol) 650 mg Q6H PRN PO 07/18/17 01:30 (Pepcid Inj) 20 mg Q12HR IV PUSH 07/18/17 09:00 07/23/17 09:34 (Zofran Inj) 4 mg Q6H PRN IV 07/18/17 01:30 (Ambien) 5 mg HS PRN PO 07/18/17 01:30 07/21/17 20:47 (Duoneb Neb) 1 ampule Q2HR NEB PRN INH 07/18/17 01:30 07/22/17 19:27 (Lovenox Inj) 40 mg Q24H SQ 07/18/17 03:00 07/23/17 03:13 Miscellaneous Information 1 Q361D XX 07/18/17 01:30 (Chlorhexidine 2% Cloth) Taper DAILY@04 TOP 07/18/17 04:00 07/14/18 03:59 07/23/17 03:13 (Chlorhexidine 2% Cloth) 3 pack UNSCH PRN TOP 07/18/17 01:30 (Shauna-Colace) 1 tab BID PO 07/18/17 09:00 07/22/17 21:01 (Milk Of Magnesia Liq) 30 ml Q12H PRN PO 07/18/17 01:30 (Senokot) 17.2 mg Q12H PRN PO 07/18/17 01:30 (Dulcolax Supp) 10 mg DAILY PRN RECTAL 07/18/17 01:30 (Lactulose Liq) 30 ml DAILY PRN PO 07/18/17 01:30 Miscellaneous Information Patient in critical care unit? Ass... Q361D .XX 07/18/17 01:45 (Habitrol 21 Mg Patch.24 Hr) 1 patch DAILY T-DERMAL 07/19/17 14:00 Miscellaneous Information 1 DAILY T-DERMAL 07/20/17 09:00 (SoluMEDROL INJ) 40 mg Q8HR IV 07/19/17 14:00 07/23/17 14:34 (D50w (Vial) Inj) 50 ml UNSCH PRN IV 07/20/17 13:15 (Glucagon Inj) 1 mg UNSCH PRN OTHER 07/20/17 13:15 (NovoLOG SUPPLEMENTAL SCALE) 1 ACHS SLIDING SCALE SQ 07/20/17 16:00 07/23/17 10:39 Piperacillin Sod/ Tazobactam Sod 100 ml @ 200 mls/hr Q8H IV 07/21/17 10:00 07/23/17 10:37 (Lasix Inj) 40 mg BID IV PUSH 07/22/17 21:00 07/23/17 09:34 A/P Problem List: (1) Acute hypercapnic respiratory failure ICD Code: J96.02 - Acute respiratory failure with hypercapnia Status: Acute (2) COPD with acute exacerbation ICD Code: J44.1 - Chronic obstructive pulmonary disease with (acute) exacerbation Status: Acute (3) Tobacco abuse disorder ICD Code: Z72.0 - Tobacco use Status: Chronic (4) Leukocytosis ICD Code: D72.829 - Elevated white blood cell count, unspecified Status: Acute (5) Obesity hypoventilation syndrome ICD Code: E66.2 - Morbid (severe) obesity with alveolar hypoventilation Status: Chronic (6) Hyperglycemia ICD Code: R73.9 - Hyperglycemia, unspecified Status: Acute (7) CHF (congestive heart failure) ICD Code: I50.9 - Heart failure, unspecified Assessment and Plan (1) Acute hypercapnic respiratory failure Plan: The patient was admitted to the intensive care unit and placed on BiPAP for support. ABG on admission had a pH of 7.38, PCO2 55 and PO2 69 started on Iv Solumedrol. Patient initially started on IV Zosyn and Vancomycin which were discontinued and patient started on Levaquin. Continue BiPAP as needed and supplemental oxygen to keep oxygen saturation more than 92%. Appreciate pulmonary recommendations. We'll follow-up his recommendations. 07/19 respiratory failure improving. Patient down to 6 L on Ventimask and off BiPAP. CT of the chest was negative for PE but suspicious for congestive heart failure. 07/21 I will start the patient IV Lasix 40 mg IV twice a day, check BNP and order and to the echocardiogram to assessed heart function and anatomy. Patient still has increased oxygen requirement. Chest x-ray obtained on 07/21 showed mild infiltrate and effusion in the right lung base. I will broaden IV antibiotic therapy and cover for HCAP and aspiration pneumonia. I will start the patient IV vancomycin and IV Zosyn and discontinue IV Levaquin. Check a sputum culture. 07/23 Patient still with elevated o2 requirements. Continue IV antibiotics and Lasix to BID since CXR still shows pulmonary congestion vs scarring ( x ray reviewed by me ). Sputum culture negative. Continue IV Zosyn. Continue IV Solumedrol as per pulmonology. Bipap as needed. (2) COPD with acute exacerbation Plan: As above. Continue with Solu-Medrol and taper the dose to 40 mg IV every 12 hours. Continue BiPAP as needed Pulmonary following. (3) Tobacco abuse disorder Plan: Advised smoking cessation. (4) Leukocytosis Plan: WBC increased from 7.6-14.0. Likely secondary to stress and a steroid use. 07/20 WBC slightly decreased from 14 K to 12 K. Patient has no fevers. Continue to monitor CBC with differential. 07/22 WBC stable, continue to monitor. (5) Obesity hypoventilation syndrome Plan: Advised weight loss. Continue BiPAP as needed. (6) Hyperglycemia Plan: No prior history of diabetes mellitus. Likely steroid-induced. . Continue on SSI with insulin NovoLog and monitor Accu-Cheks. Check hemoglobin A1c Blood sugars stable. (7) CHF (congestive heart failure) Plan: As evidence on CTA of the chest described above. Unspecified type at this moment. Echo cardiac shows mild concentric left ventricle hypertrophy with normal systolic function with an EF of 55-60%. Patient likely has acute diastolic heart failure. We'll continue diuresis with IV Lasix, however will increase the dose to twice a day for now. 07/23 Continue with Lasix 40 mg IV BID. Check BNP. GI prophylaxis: PPI. DVT prophylaxis: Continue Lovenox subcutaneously and SCDs. Discharge Planning Continue to monitor in intensive care unit. Discussed with RN. Patient still with elevated O2 requirements. Problem Qualifiers (1) Leukocytosis: Qualified Codes: D72.829 - Elevated white blood cell count, unspecified (2) CHF (congestive heart failure): Qualified Codes: I50.9 - Heart failure, unspecified David Martinez MD Jul 23, 2017 16:18
--- NOTE | 2017-07-23 19:29 | HHI.PR ---
Subjective Remarks Remains on 50 % FIo2 with a venti mask. Used Bipap last nite. No chest pain. Or fever. CT shows possible CHF. On IV lasix. Objective Vital Signs Date Time Temp Pulse Resp B/P (MAP) Pulse Ox O2 Delivery O2 Flow Rate FiO2 07/23/17 18:00 82 07/23/17 16:23 90 50 07/23/17 16:00 73 07/23/17 16:00 98.6 73 20 110/60 (77) 88 07/23/17 14:00 82 07/23/17 12:00 98.8 72 23 119/69 (86) 88 07/23/17 12:00 72 07/23/17 10:00 71 07/23/17 08:04 94 50 07/23/17 08:00 65 07/23/17 08:00 97.2 65 19 117/77 (90) 92 07/23/17 06:00 60 07/23/17 04:07 93 50 07/23/17 04:00 98.1 57 18 112/71 (85) 91 07/23/17 04:00 57 07/23/17 02:00 59 07/23/17 00:48 92 50 07/23/17 00:00 73 07/23/17 00:00 98.0 73 16 113/67 (82) 91 07/22/17 23:30 95 45 07/22/17 22:00 74 07/22/17 20:00 82 07/22/17 20:00 97.9 82 18 124/59 (80) 89 I/O 07/22/17 07/22/17 07/22/17 07/23/17 07/23/17 07/23/17 07:00 15:00 23:00 07:00 15:00 23:00 Intake Total 480 ml 1240 ml 850 ml 450 ml 350 ml 850 ml Output Total 1100 ml 2000 ml 1000 ml 1100 ml 1275 ml 375 ml Balance -620 ml -760 ml -150 ml -650 ml -925 ml 475 ml Intake Oral 480 ml 750 ml 350 ml 250 ml 750 ml IV Total 1240 ml 100 ml 100 ml 100 ml 100 ml Output Urine Total 1100 ml 2000 ml 1000 ml 1100 ml 1275 ml 375 ml # Bowel Movements 0 2 0 1 Result Diagram: 07/23/1751007/23/17510 Objective Remarks GENERAL: This is a moderately obese middle-aged white male who is alert and cooperative . He has mild peripheral Edema HEAD, EYES, EARS, NOSE, THROAT: Head normocephalic. The pupils are reactive. Tongue is moist. Throat is clear. Nasal mucosa clear NECK: The neck is supple. No venous distention. Trachea is midline. CHEST: Distant breath sounds with expiratory wheezes throughout both lung chaney. Prolonged expirations.Fine crackles at bases. HEART: Heart sounds are irregular. S1-S2. No murmur. No S3. ABDOMEN: Abdomen soft and benign. No masses. No organomegaly or tenderness. The bowel sounds are active. EXTREMITIES:No edema. decreased peripheral pulses. NEUROLOGIC: Reflexes are 1+. No gross motor deficits. RECTAL: Rectal exam is deferred. Assessment and Plan Assessment and Plan IMPRESSION: 1. Acute respiratory failure. 2. COPD. 3. Chronic bronchitis. 4. Probable obstructive sleep apnea syndrome. 5. History of hypertension. 6. R/O PE 7. CHF Plan : 1. Continue antibiotics, Levaquin IV 2. Wean o2 to ventimask 40 % and to N/C 5 L 3. Bipap at HS 12/5 cm, 40 % FIO2 4. Nebs qid , duoneb. 5. Lovenox 40 mg S/Q daily 6. Solumedrol 40 mg IV q8h 7. Lasix 40 mg IV daily and KCl 20 meq. 8. CBC ,BMP,CXR in Alisha Phan MD Jul 23, 2017 19:29
[2017-07-24] VITALS (17 sets, daily range): BP systolic 110–126; BP diastolic 62–70; PULSE 58–84; RESP 16–23; TEMP 97.9–98.4; O2SAT 88–97
[2017-07-24] MEDS: CHLORHEXIDINE GLUCONATE 2 % 1 PACK (2 CLOTHS) TOP SCH (04:00)
[2017-07-24] MEDS: PIPERACIL-TAZO 4.5 GM PREMIX 100 ML IV SCH ×3 (04:33→18:00)
[2017-07-24] MEDS: ENOXAPARIN SODIUM 40 MG/0.4 ML SYRINGE SQ SCH (04:33)
[2017-07-24 05:45] LABS: BICARBONATE 33.8 MEQ/L (21.0-32.0); POTASSIUM 4.6 MEQ/L (3.5-5.1)
[2017-07-24] MEDS: methylPREDNISolone SOD SUCC 40 MG/1 ML VIAL IV SCH ×2 (06:21→14:00)
[2017-07-24] MEDS: INSULIN ASPART SUPPLEMENTAL SCALE SQ SCH ×4 (06:22→20:30)
--- NOTE | 2017-07-24 06:57 | RADRPT ---
EXAM DATE/TIME: 07/24/2017 05:11 [facility] COMPARISON: CHEST SINGLE AP, July 22, 2017, 5:58. INDICATIONS : Follow up infiltrate. MEDICAL HISTORY : None. SURGICAL HISTORY : None. ENCOUNTER: Subsequent ACUITY: 4 - 6 days PAIN SCORE: Non-responsive. LOCATION: Bilateral chest FINDINGS: Mild interstitial prominence with continued improved aeration of the lung bases. Cardiomegaly distal contours are stable. Remainder of exam is unchanged. CONCLUSION: 1. Cardiomegaly with improved slight positive fluid balance. 2. Improved lower lobe aeration. Kendall Le MD on July 24, 2017 at 6:54 Board Certified Radiologist. This report was verified electronically.
[2017-07-24] MEDS: DOCUSATE SODIUM 50 MG/SENNA 8.6 MG TAB PO SCH ×2 (08:43→20:29)
[2017-07-24] MEDS: FUROSEMIDE 40 MG/4 ML VIAL IV PUSH SCH ×2 (08:43→20:29)
[2017-07-24] MEDS: NICOTINE 21 MG/24 HR PATCH T-DERMAL SCH (08:43)
[2017-07-24] MEDS: REMOVE OLD PATCH T-DERMAL SCH (08:43)
[2017-07-24] MEDS: FAMOTIDINE 20 MG/2 ML VIAL IV PUSH SCH ×2 (08:43→20:29)
--- NOTE | 2017-07-24 18:24 | HHI.PR ---
Subjective Remarks On N/C at 5 L.. Used Bipap last nite. Feels better. No chest pain. Or fever. CT shows possible CHF. Objective Vital Signs Date Time Temp Pulse Resp B/P (MAP) Pulse Ox O2 Delivery O2 Flow Rate FiO2 07/24/17 14:00 79 07/24/17 12:20 98.1 84 18 125/62 (83) 89 07/24/17 12:00 79 07/24/17 10:00 79 07/24/17 08:14 92 50 07/24/17 08:00 97.9 79 18 125/62 (83) 89 07/24/17 08:00 79 07/24/17 06:00 63 07/24/17 04:28 95 50 07/24/17 04:00 98.4 58 16 115/66 (82) 90 07/24/17 04:00 58 07/24/17 02:00 62 07/24/17 00:39 95 50 07/24/17 00:00 98.1 67 17 110/70 (83) 88 07/24/17 00:00 67 07/23/17 22:00 68 07/23/17 20:25 94 Venturi Mask 6.00 50 07/23/17 20:00 79 07/23/17 20:00 97.9 79 18 125/62 (83) 89 I/O 07/23/17 07/23/17 07/23/17 07/24/17 07/24/17 07/24/17 07:00 15:00 23:00 07:00 15:00 23:00 Intake Total 450 ml 350 ml 850 ml 340 ml Output Total 1100 ml 1275 ml 375 ml 800 ml Balance -650 ml -925 ml 475 ml -460 ml Intake Oral 350 ml 250 ml 750 ml 240 ml IV Total 100 ml 100 ml 100 ml 100 ml Output Urine Total 1100 ml 1275 ml 375 ml 800 ml # Bowel Movements 0 1 0 Result Diagram: 07/23/17 0511 07/24/17 0503 Objective Remarks GENERAL: This is a moderately obese middle-aged white male who is alert and cooperative . HEAD, EYES, EARS, NOSE, THROAT: Head normocephalic. The pupils are reactive. Tongue is moist. Throat is clear. Nasal mucosa clear NECK: The neck is supple. No venous distention. Trachea is midline. CHEST: Distant breath sounds with expiratory wheezes throughout both lung chaney. Prolonged expirations.occ crackles at bases. HEART: Heart sounds are irregular. S1-S2. No murmur. No S3. ABDOMEN: Abdomen soft and benign. No masses. No organomegaly or tenderness. The bowel sounds are active. EXTREMITIES:Min edema. decreased peripheral pulses. NEUROLOGIC: Reflexes are 1+. No gross motor deficits. RECTAL: Rectal exam is deferred. Assessment and Plan Assessment and Plan IMPRESSION: 1. Acute respiratory failure. 2. COPD. 3. Chronic bronchitis. 4. Probable obstructive sleep apnea syndrome. 5. History of hypertension. 6. R/O PE 7. CHF Plan : 1. Continue antibiotics, Levaquin IV 2. Wean o2 to N/C 4 L 3. Bipap at HS 12/5 cm, 35 % FIO2 4. Nebs qid , duoneb. 5. Lovenox 40 mg S/Q daily 6. Solumedrol 40 mg IV q12h 7. Lasix 40 mg IV daily and KCl 20 meq. 8. CBC ,BMP,in am Alisha Phan MD Jul 24, 2017 18:24
--- NOTE | 2017-07-24 19:58 | HHI.PR ---
Subjective Remarks denies cp/sob improving denies fevers or chills off Ventimask - no sating 92% on nasal canula Objective Vitals Vital Signs Date Time Temp Pulse Resp B/P (MAP) Pulse Ox O2 Delivery O2 Flow Rate FiO2 07/24/17 18:00 79 07/24/17 18:00 98.1 84 18 126/62 (83) 97 07/24/17 16:00 79 07/24/17 14:00 79 07/24/17 12:20 98.1 84 18 125/62 (83) 89 07/24/17 12:00 79 07/24/17 10:00 79 07/24/17 08:14 92 50 07/24/17 08:00 97.9 79 18 125/62 (83) 89 07/24/17 08:00 79 07/24/17 06:00 63 07/24/17 04:28 95 50 07/24/17 04:00 98.4 58 16 115/66 (82) 90 07/24/17 04:00 58 07/24/17 02:00 62 07/24/17 00:39 95 50 07/24/17 00:00 98.1 67 17 110/70 (83) 88 07/24/17 00:00 67 07/23/17 22:00 68 07/23/17 20:25 94 Venturi Mask 6.00 50 07/23/17 20:00 79 07/23/17 20:00 97.9 79 18 125/62 (83) 89 I/O 07/23/17 07/23/17 07/23/17 07/24/17 07/24/17 07/24/17 07:00 15:00 23:00 07:00 15:00 23:00 Intake Total 450 ml 350 ml 850 ml 340 ml 380 ml Output Total 1100 ml 1275 ml 375 ml 800 ml 1550 ml Balance -650 ml -925 ml 475 ml -460 ml -1170 ml Intake Oral 350 ml 250 ml 750 ml 240 ml 380 ml IV Total 100 ml 100 ml 100 ml 100 ml Output Urine Total 1100 ml 1275 ml 375 ml 800 ml 1550 ml # Bowel Movements 0 1 0 Result Diagram: 07/23/17 0511 07/24/17 0503 Imaging Current Medications Medications (Trade) Dose Ordered Sig/Chace Route Start Time Stop Time Status Last Admin (Narcan Inj) 0.4 mg UNSCH PRN IV 07/17/17 20:30 (NS Flush) 2 ml UNSCH PRN .XX 07/18/17 01:30 (NS Flush) 2 ml BID .XX 07/18/17 09:00 07/23/17 21:42 (Tylenol) 650 mg Q6H PRN PO 07/18/17 01:30 (Pepcid Inj) 20 mg Q12HR IV PUSH 07/18/17 09:00 07/24/17 08:43 (Zofran Inj) 4 mg Q6H PRN IV 07/18/17 01:30 (Ambien) 5 mg HS PRN PO 07/18/17 01:30 07/21/17 20:47 (Duoneb Neb) 1 ampule Q2HR NEB PRN INH 07/18/17 01:30 07/22/17 19:27 (Lovenox Inj) 40 mg Q24H SQ 07/18/17 03:00 07/24/17 04:33 Miscellaneous Information 1 Q361D XX 07/18/17 01:30 (Chlorhexidine 2% Cloth) Taper DAILY@04 TOP 07/18/17 04:00 07/14/18 03:59 07/24/17 04:00 (Chlorhexidine 2% Cloth) 3 pack UNSCH PRN TOP 07/18/17 01:30 (Shauna-Colace) 1 tab BID PO 07/18/17 09:00 07/24/17 08:43 (Milk Of Magnesia Liq) 30 ml Q12H PRN PO 07/18/17 01:30 (Senokot) 17.2 mg Q12H PRN PO 07/18/17 01:30 (Dulcolax Supp) 10 mg DAILY PRN RECTAL 07/18/17 01:30 (Lactulose Liq) 30 ml DAILY PRN PO 07/18/17 01:30 Miscellaneous Information Patient in critical care unit? Ass... Q361D .XX 07/18/17 01:45 (Habitrol 21 Mg Patch.24 Hr) 1 patch DAILY T-DERMAL 07/19/17 14:00 07/24/17 08:43 Miscellaneous Information 1 DAILY T-DERMAL 07/20/17 09:00 07/24/17 08:43 (D50w (Vial) Inj) 50 ml UNSCH PRN IV 07/20/17 13:15 (Glucagon Inj) 1 mg UNSCH PRN OTHER 07/20/17 13:15 (NovoLOG SUPPLEMENTAL SCALE) 1 ACHS SLIDING SCALE SQ 07/20/17 16:00 07/23/17 10:39 Piperacillin Sod/ Tazobactam Sod 100 ml @ 200 mls/hr Q8H IV 07/21/17 10:00 07/24/17 18:00 (Lasix Inj) 20 mg BID IV PUSH 07/23/17 21:00 07/24/17 08:43 (SoluMEDROL INJ) 40 mg Q12H IV 07/25/17 02:00 Objective Remarks AAOx3, not in respiratory distress On ventimask Clear to auscultation of BL lung chaney with improved air movement. No wheezing , rhonchi or crackles auscultated. S1S2 +, RRR, no MRG Bowel sounds are present, abdomen is obese, nontender to palpation. No edema in lower extremities good peripheral pulses in upper and lower extremities Procedures None Medications and IVs Current Medications Medications (Trade) Dose Ordered Sig/Chace Route Start Time Stop Time Status Last Admin (Narcan Inj) 0.4 mg UNSCH PRN IV 07/17/17 20:30 (NS Flush) 2 ml UNSCH PRN .XX 07/18/17 01:30 (NS Flush) 2 ml BID .XX 07/18/17 09:00 07/23/17 21:42 (Tylenol) 650 mg Q6H PRN PO 07/18/17 01:30 (Pepcid Inj) 20 mg Q12HR IV PUSH 07/18/17 09:00 07/24/17 08:43 (Zofran Inj) 4 mg Q6H PRN IV 07/18/17 01:30 (Ambien) 5 mg HS PRN PO 07/18/17 01:30 07/21/17 20:47 (Duoneb Neb) 1 ampule Q2HR NEB PRN INH 07/18/17 01:30 07/22/17 19:27 (Lovenox Inj) 40 mg Q24H SQ 07/18/17 03:00 07/24/17 04:33 Miscellaneous Information 1 Q361D XX 07/18/17 01:30 (Chlorhexidine 2% Cloth) Taper DAILY@04 TOP 07/18/17 04:00 07/14/18 03:59 07/24/17 04:00 (Chlorhexidine 2% Cloth) 3 pack UNSCH PRN TOP 07/18/17 01:30 (Shauna-Colace) 1 tab BID PO 07/18/17 09:00 07/24/17 08:43 (Milk Of Magnesia Liq) 30 ml Q12H PRN PO 07/18/17 01:30 (Senokot) 17.2 mg Q12H PRN PO 07/18/17 01:30 (Dulcolax Supp) 10 mg DAILY PRN RECTAL 07/18/17 01:30 (Lactulose Liq) 30 ml DAILY PRN PO 07/18/17 01:30 Miscellaneous Information Patient in critical care unit? Ass... Q361D .XX 07/18/17 01:45 (Habitrol 21 Mg Patch.24 Hr) 1 patch DAILY T-DERMAL 07/19/17 14:00 07/24/17 08:43 Miscellaneous Information 1 DAILY T-DERMAL 07/20/17 09:00 07/24/17 08:43 (D50w (Vial) Inj) 50 ml UNSCH PRN IV 07/20/17 13:15 (Glucagon Inj) 1 mg UNSCH PRN OTHER 07/20/17 13:15 (NovoLOG SUPPLEMENTAL SCALE) 1 ACHS SLIDING SCALE SQ 07/20/17 16:00 07/23/17 10:39 Piperacillin Sod/ Tazobactam Sod 100 ml @ 200 mls/hr Q8H IV 07/21/17 10:00 07/24/17 18:00 (Lasix Inj) 20 mg BID IV PUSH 07/23/17 21:00 07/24/17 08:43 (SoluMEDROL INJ) 40 mg Q12H IV 07/25/17 02:00 A/P Problem List: (1) Acute hypercapnic respiratory failure ICD Code: J96.02 - Acute respiratory failure with hypercapnia Status: Acute (2) COPD with acute exacerbation ICD Code: J44.1 - Chronic obstructive pulmonary disease with (acute) exacerbation Status: Acute (3) Tobacco abuse disorder ICD Code: Z72.0 - Tobacco use Status: Chronic (4) Leukocytosis ICD Code: D72.829 - Elevated white blood cell count, unspecified Status: Acute (5) Obesity hypoventilation syndrome ICD Code: E66.2 - Morbid (severe) obesity with alveolar hypoventilation Status: Chronic (6) Hyperglycemia ICD Code: R73.9 - Hyperglycemia, unspecified Status: Acute (7) CHF (congestive heart failure) ICD Code: I50.9 - Heart failure, unspecified Assessment and Plan (1) Acute hypercapnic respiratory failure Plan: The patient was admitted to the intensive care unit and placed on BiPAP for support. ABG on admission had a pH of 7.38, PCO2 55 and PO2 69 started on Iv Solumedrol. Patient initially started on IV Zosyn and Vancomycin which were discontinued and patient started on Levaquin. Continue BiPAP as needed and supplemental oxygen to keep oxygen saturation more than 92%. Appreciate pulmonary recommendations. We'll follow-up his recommendations. 07/19 respiratory failure improving. Patient down to 6 L on Ventimask and off BiPAP. CT of the chest was negative for PE but suspicious for congestive heart failure. 07/21 I will start the patient IV Lasix 40 mg IV twice a day, check BNP and order and to the echocardiogram to assessed heart function and anatomy. Patient still has increased oxygen requirement. Chest x-ray obtained on 07/21 showed mild infiltrate and effusion in the right lung base. I will broaden IV antibiotic therapy and cover for HCAP and aspiration pneumonia. I will start the patient IV vancomycin and IV Zosyn and discontinue IV Levaquin. Check a sputum culture. O2 requirements improving, patient down to nasal canula. Continue IV antibiotics and Lasix to BID since CXR still shows pulmonary congestion vs scarring Sputum culture negative. Continue IV Zosyn. Continue IV Solumedrol as per pulmonology. Bipap at night and as needed. (2) COPD with acute exacerbation Plan: As above. Continue with Solu-Medrol and taper the dose to 40 mg IV every 12 hours. Patient on nasal canula, previously on Bipap down to Ventimask Pulmonary following. (3) Tobacco abuse disorder Plan: Advised smoking cessation. (4) Leukocytosis Plan: WBC increased from 7.6-14.0. Likely secondary to stress and a steroid use. 07/20 WBC slightly decreased from 14 K to 12 K. Patient has no fevers. Continue to monitor CBC with differential. 07/22 WBC stable, continue to monitor. (5) Obesity hypoventilation syndrome Plan: Advised weight loss. Continue BiPAP as needed. (6) Hyperglycemia Plan: No prior history of diabetes mellitus. Likely steroid-induced. . Continue on SSI with insulin NovoLog and monitor Accu-Cheks. Hemoglobin A1C is 5.8. Blood sugars stable. (7) CHF (congestive heart failure) Plan: As evidence on CTA of the chest described above. Unspecified type at this moment. Echo cardiac shows mild concentric left ventricle hypertrophy with normal systolic function with an EF of 55-60%. Patient likely has acute diastolic heart failure. We'll continue diuresis with IV Lasix, however will increase the dose to twice a day for now. 07/25 BNP trended down from 115 to 23. Will DC IV lasix and start Lasix 40 mg po daily. GI prophylaxis: PPI. DVT prophylaxis: Continue Lovenox subcutaneously and SCDs. Discharge Planning Continue to monitor in intensive care unit. Discussed with RN. Patient still with elevated O2 requirements. Problem Qualifiers (1) Leukocytosis: Qualified Codes: D72.829 - Elevated white blood cell count, unspecified (2) CHF (congestive heart failure): Qualified Codes: I50.9 - Heart failure, unspecified David Martinez MD Jul 24, 2017 19:58
[2017-07-24] MEDS: SODIUM CHLORIDE 0.9% FLUSH 10 ML FLUSH SCH (20:28)
[2017-07-25] VITALS (16 sets, daily range): BP systolic 105–130; BP diastolic 57–78; PULSE 61–78; RESP 17–25; TEMP 98.3–98.6; O2SAT 88–95
[2017-07-25] MEDS: PIPERACIL-TAZO 4.5 GM PREMIX 100 ML IV SCH ×3 (01:31→17:00)
[2017-07-25] MEDS: ENOXAPARIN SODIUM 40 MG/0.4 ML SYRINGE SQ SCH (01:31)
[2017-07-25] MEDS: CHLORHEXIDINE GLUCONATE 2 % 1 PACK (2 CLOTHS) TOP SCH (01:31)
[2017-07-25] MEDS ORDERED: methylPREDNISolone SOD SUCC 40 MG/1 ML VIAL IV SCH (02:00)
[2017-07-25] MEDS: INSULIN ASPART SUPPLEMENTAL SCALE SQ SCH ×4 (06:41→19:57)
[2017-07-25 06:44] LABS: BICARBONATE 33.9 MEQ/L (21.0-32.0); POTASSIUM 4.1 MEQ/L (3.5-5.1)
[2017-07-25] MEDS: REMOVE OLD PATCH T-DERMAL SCH (09:00)
[2017-07-25] MEDS: DOCUSATE SODIUM 50 MG/SENNA 8.6 MG TAB PO SCH ×2 (09:00→19:57)
[2017-07-25] MEDS: FAMOTIDINE 20 MG/2 ML VIAL IV PUSH SCH ×2 (09:17→20:11)
[2017-07-25] MEDS: FUROSEMIDE 40 MG/4 ML VIAL IV PUSH SCH (09:17)
[2017-07-25] MEDS: NICOTINE 21 MG/24 HR PATCH T-DERMAL SCH (09:17)
--- NOTE | 2017-07-25 11:56 | HHI.PR ---
Subjective Remarks Patient denies cp/sob improving denies feevrs/chills/cough denies diarrhea or abdominal pain Objective Vitals Vital Signs Date Time Temp Pulse Resp B/P (MAP) Pulse Ox O2 Delivery O2 Flow Rate FiO2 07/25/17 10:00 76 07/25/17 08:40 88 Nasal Cannula 6.00 07/25/17 08:00 98.4 63 17 122/57 (78) 89 07/25/17 08:00 76 07/25/17 06:00 76 07/25/17 04:04 92 40 07/25/17 04:00 78 07/25/17 04:00 98.6 63 17 114/57 (76) 89 07/25/17 02:00 61 07/25/17 01:34 95 40 07/25/17 00:00 66 07/25/17 00:00 98.3 66 21 105/63 (77) 93 07/24/17 22:00 80 07/24/17 21:04 94 Nasal Cannula 6.00 07/24/17 20:00 98.0 77 23 119/70 (86) 90 07/24/17 20:00 77 07/24/17 18:00 79 07/24/17 18:00 98.1 84 18 126/62 (83) 97 07/24/17 16:00 79 07/24/17 14:00 79 07/24/17 12:20 98.1 84 18 125/62 (83) 89 07/24/17 12:00 79 I/O 07/24/17 07/24/17 07/24/17 07/25/17 07/25/17 07/25/17 07:00 15:00 23:00 07:00 15:00 23:00 Intake Total 340 ml 380 ml 540 ml Output Total 800 ml 1550 ml 1500 ml Balance -460 ml -1170 ml -960 ml Intake Oral 240 ml 380 ml 240 ml IV Total 100 ml 300 ml Output Urine Total 800 ml 1550 ml 1500 ml # Bowel Movements 0 1 Result Diagram: 07/23/17 0511 07/25/17 0523 Imaging Last Impressions Chest X-Ray 07/24/17 0600 Signed Impressions: Service Date/Time: July 05:11 - CONCLUSION: 1. Cardiomegaly with improved slight positive fluid balance. 2. Improved lower lobe aeration. Kendall Le MD CT Angiography 07/19/17 [id number] Signed Impressions: Service Date/Time: Wednesday, July 19, 2017 16:01 - CONCLUSION: Suspicious for mild congestive failure There is no central pulmonary emboli. Duglas Johnson MD FACR Objective Remarks AAOx3, not in respiratory distress On ventimask Clear to auscultation of BL lung chaney with good air movement. No wheezing, rhonchi or crackles auscultated. S1S2 +, RRR, no MRG Bowel sounds are present, abdomen is obese, nontender to palpation. No edema in lower extremities good peripheral pulses in upper and lower extremities Procedures None Medications and IVs Current Medications Medications (Trade) Dose Ordered Sig/Chace Route Start Time Stop Time Status Last Admin (Narcan Inj) 0.4 mg UNSCH PRN IV 07/17/17 20:30 (NS Flush) 2 ml UNSCH PRN .XX 07/18/17 01:30 (NS Flush) 2 ml BID .XX 07/18/17 09:00 07/24/17 20:28 (Tylenol) 650 mg Q6H PRN PO 07/18/17 01:30 (Pepcid Inj) 20 mg Q12HR IV PUSH 07/18/17 09:00 07/25/17 09:17 (Zofran Inj) 4 mg Q6H PRN IV 07/18/17 01:30 (Ambien) 5 mg HS PRN PO 07/18/17 01:30 07/21/17 20:47 (Duoneb Neb) 1 ampule Q2HR NEB PRN INH 07/18/17 01:30 07/22/17 19:27 (Lovenox Inj) 40 mg Q24H SQ 07/18/17 03:00 07/25/17 01:31 Miscellaneous Information 1 Q361D XX 07/18/17 01:30 (Chlorhexidine 2% Cloth) Taper DAILY@04 TOP 07/18/17 04:00 07/14/18 03:59 07/25/17 01:31 (Chlorhexidine 2% Cloth) 3 pack UNSCH PRN TOP 07/18/17 01:30 (Shauna-Colace) 1 tab BID PO 07/18/17 09:00 07/25/17 09:00 (Milk Of Magnesia Liq) 30 ml Q12H PRN PO 07/18/17 01:30 (Senokot) 17.2 mg Q12H PRN PO 07/18/17 01:30 (Dulcolax Supp) 10 mg DAILY PRN RECTAL 07/18/17 01:30 (Lactulose Liq) 30 ml DAILY PRN PO 07/18/17 01:30 Miscellaneous Information Patient in critical care unit? Ass... Q361D .XX 07/18/17 01:45 (Habitrol 21 Mg Patch.24 Hr) 1 patch DAILY T-DERMAL 07/19/17 14:00 07/25/17 09:17 Miscellaneous Information 1 DAILY T-DERMAL 07/20/17 09:00 07/25/17 09:00 (D50w (Vial) Inj) 50 ml UNSCH PRN IV 07/20/17 13:15 (Glucagon Inj) 1 mg UNSCH PRN OTHER 07/20/17 13:15 (NovoLOG SUPPLEMENTAL SCALE) 1 ACHS SLIDING SCALE SQ 07/20/17 16:00 07/23/17 10:39 Piperacillin Sod/ Tazobactam Sod 100 ml @ 200 mls/hr Q8H IV 07/21/17 10:00 07/25/17 09:19 (Lasix Inj) 20 mg BID IV PUSH 07/23/17 21:00 07/25/17 09:17 (SoluMEDROL INJ) 40 mg Q12H IV 07/25/17 02:00 07/25/17 01:30 Urinary Catheter: No Vascular Central Line Catheter: No A/P Problem List: (1) Acute hypercapnic respiratory failure ICD Code: J96.02 - Acute respiratory failure with hypercapnia Status: Acute (2) COPD with acute exacerbation ICD Code: J44.1 - Chronic obstructive pulmonary disease with (acute) exacerbation Status: Acute (3) Tobacco abuse disorder ICD Code: Z72.0 - Tobacco use Status: Chronic (4) Leukocytosis ICD Code: D72.829 - Elevated white blood cell count, unspecified Status: Acute (5) Obesity hypoventilation syndrome ICD Code: E66.2 - Morbid (severe) obesity with alveolar hypoventilation Status: Chronic (6) Hyperglycemia ICD Code: R73.9 - Hyperglycemia, unspecified Status: Acute (7) CHF (congestive heart failure) ICD Code: I50.9 - Heart failure, unspecified Assessment and Plan (1) Acute hypercapnic respiratory failure Plan: The patient was admitted to the intensive care unit and placed on BiPAP for support. ABG on admission had a pH of 7.38, PCO2 55 and PO2 69 started on Iv Solumedrol. Patient initially started on IV Zosyn and Vancomycin which were discontinued and patient started on Levaquin. Continue BiPAP as needed and supplemental oxygen to keep oxygen saturation more than 92%. Appreciate pulmonary recommendations. We'll follow-up his recommendations. 07/19 respiratory failure improving. Patient down to 6 L on Ventimask and off BiPAP. CT of the chest was negative for PE but suspicious for congestive heart failure. 07/21 I will start the patient IV Lasix 40 mg IV twice a day, check BNP and order and to the echocardiogram to assessed heart function and anatomy. Patient still has increased oxygen requirement. Chest x-ray obtained on 07/21 showed mild infiltrate and effusion in the right lung base. I will broaden IV antibiotic therapy and cover for HCAP and aspiration pneumonia. I will start the patient IV vancomycin and IV Zosyn and discontinue IV Levaquin. Check a sputum culture. O2 requirements improving, patient down to nasal canula. Continue IV antibiotics and Lasix to BID since CXR still shows pulmonary congestion vs scarring Sputum culture negative. Continue IV Zosyn. Continue IV Solumedrol as per pulmonology. Bipap at night and as needed. 07/25 Repeat cxr in am. (2) COPD with acute exacerbation Plan: As above. Dc IV solumedrol and start on prednisone. Patient on nasal canula, previously on Bipap down to Ventimask Pulmonary following. (3) Tobacco abuse disorder Plan: Advised smoking cessation. (4) Leukocytosis Plan: WBC increased from 7.6-14.0. Likely secondary to stress and a steroid use. 07/20 WBC slightly decreased from 14 K to 12 K. Patient has no fevers. Continue to monitor CBC with differential. 07/25 WBC stable, continue to monitor. (5) Obesity hypoventilation syndrome Plan: Advised weight loss. Continue BiPAP as needed. (6) Hyperglycemia Plan: No prior history of diabetes mellitus. Likely steroid-induced. . Continue on SSI with insulin NovoLog and monitor Accu-Cheks. Hemoglobin A1C is 5.8. Blood sugars stable. (7) CHF (congestive heart failure) Plan: As evidence on CTA of the chest described above. Unspecified type at this moment. Echo cardiac shows mild concentric left ventricle hypertrophy with normal systolic function with an EF of 55-60%. Patient likely has acute diastolic heart failure. We'll continue diuresis with IV Lasix, however will increase the dose to twice a day for now. 07/25 BNP trended down from 115 to 23. Will DC IV lasix and start Lasix 40 mg po daily. GI prophylaxis: PPI. DVT prophylaxis: Continue Lovenox subcutaneously and SCDs. Discharge Planning Patient still on Bipap at night. Continue to monitor in the ICU. Patient may be transfered to medical floor if Bipap at night can be done in this floor. Problem Qualifiers (1) Leukocytosis: Qualified Codes: D72.829 - Elevated white blood cell count, unspecified (2) CHF (congestive heart failure): Qualified Codes: I50.9 - Heart failure, unspecified David Martinez MD Jul 25, 2017 11:56
--- NOTE | 2017-07-25 13:51 | HHI.PR ---
Subjective Remarks On N/C at 4 L. Feels better.Off Bipap now. No chest pain. CT shows possible CHF. Objective Vital Signs Date Time Temp Pulse Resp B/P (MAP) Pulse Ox O2 Delivery O2 Flow Rate FiO2 07/25/17 12:00 76 07/25/17 12:00 98.6 61 17 121/57 (78) 89 07/25/17 10:00 76 07/25/17 08:40 88 Nasal Cannula 6.00 07/25/17 08:00 98.4 63 17 122/57 (78) 89 07/25/17 08:00 76 07/25/17 06:00 76 07/25/17 04:04 92 40 07/25/17 04:00 78 07/25/17 04:00 98.6 63 17 114/57 (76) 89 07/25/17 02:00 61 07/25/17 01:34 95 40 07/25/17 00:00 66 07/25/17 00:00 98.3 66 21 105/63 (77) 93 07/24/17 22:00 80 07/24/17 21:04 94 Nasal Cannula 6.00 07/24/17 20:00 98.0 77 23 119/70 (86) 90 07/24/17 20:00 77 07/24/17 18:00 79 07/24/17 18:00 98.1 84 18 126/62 (83) 97 07/24/17 16:00 79 07/24/17 14:00 79 I/O 07/24/17 07/24/17 07/24/17 07/25/17 07/25/17 07/25/17 07:00 15:00 23:00 07:00 15:00 23:00 Intake Total 340 ml 380 ml 540 ml Output Total 800 ml 1550 ml 1500 ml Balance -460 ml -1170 ml -960 ml Intake Oral 240 ml 380 ml 240 ml IV Total 100 ml 300 ml Output Urine Total 800 ml 1550 ml 1500 ml # Bowel Movements 0 1 Result Diagram: 07/23/17 0511 07/25/17 0523 Objective Remarks GENERAL: This is a moderately obese middle-aged white male who is alert and cooperative . HEAD, EYES, EARS, NOSE, THROAT: Head normocephalic. The pupils are reactive. Tongue is moist. Throat is clear. Nasal mucosa clear NECK: The neck is supple. No venous distention. Trachea is midline. CHEST: Distant breath sounds with expiratory wheezes throughout both lung chaney. Prolonged expirations.occ crackles at bases. HEART: Heart sounds are irregular. S1-S2. No murmur. No S3. ABDOMEN: Abdomen soft and benign. No masses. No organomegaly or tenderness. The bowel sounds are active. EXTREMITIES:No edema. decreased peripheral pulses. NEUROLOGIC: Reflexes are 1+. No gross motor deficits. RECTAL: Rectal exam is deferred. Assessment and Plan Assessment and Plan IMPRESSION: 1. Acute respiratory failure. 2. COPD. 3. Chronic bronchitis. 4. Probable obstructive sleep apnea syndrome. 5. History of hypertension. 6. R/O PE 7. CHF Plan : 1. Continue antibiotics, Levaquin IV 2. Wean o2 to N/C 4 L 3. D/C Bipap at HS and will Arrange Sleep test as OP 4. Nebs qid , duoneb. 5. Lovenox 40 mg S/Q daily 6. D/C Solumedrol and add prednisone 20 mg bid 7. Lasix 40 mg IV daily and KCl 20 meq. 8. CBC ,BMP,in am Alisha Phan MD Jul 25, 2017 13:51
[2017-07-25] MEDS: SODIUM CHLORIDE 0.9% FLUSH 10 ML FLUSH SCH ×2 (19:57→20:10)
[2017-07-25] MEDS: predniSONE 20 MG TAB PO SCH (19:57)
[2017-07-26] VITALS (23 sets, daily range): BP systolic 101–135; BP diastolic 54–70; PULSE 61–79; RESP 13–32; TEMP 97.9–98.8; O2SAT 87–93
[2017-07-26] MEDS: PIPERACIL-TAZO 4.5 GM PREMIX 100 ML IV SCH (02:46)
[2017-07-26] MEDS: ENOXAPARIN SODIUM 40 MG/0.4 ML SYRINGE SQ SCH (02:46)
[2017-07-26] MEDS: CHLORHEXIDINE GLUCONATE 2 % 1 PACK (2 CLOTHS) TOP SCH (02:47)
[2017-07-26 06:38] LABS: AUTOMATED NEUTROPHIL # 8.7 TH/MM3 (1.8-7.7); BASOPHIL % 0.1 % (0.0-2.0); EOSINOPHIL % 0.3 % (0.0-4.0); HEMATOCRIT 51.4 % (39.0-51.0); HEMO FLAGS DIFF FINAL; LYMPH % 17.6 % (9.0-44.0); MEAN CELL VOLUME 97.3 FL (80.0-100.0); MEAN CORPUSCULAR HEMOGLOBIN 31.9 PG (27.0-34.0); MEAN CORPUSCULAR HGB CONC 32.7 % (32.0-36.0); MONO % 6.5 % (0.0-8.0); NEUT % 75.5 % (16.0-70.0); PLATELET COUNT 209 TH/MM3 (150-450); RED BLOOD COUNT 5.28 MIL/MM3 (4.50-5.90); RED CELL DISTRIBUTION WIDTH 13.1 % (11.6-17.2); WHITE BLOOD COUNT 11.5 TH/MM3 (4.0-11.0)
[2017-07-26] MEDS: INSULIN ASPART SUPPLEMENTAL SCALE SQ SCH ×4 (06:55→21:00)
[2017-07-26 06:59] LABS: ANION GAP 5 MEQ/L (5-15); AST (GOT) 13 U/L (15-37); BICARBONATE 35.4 MEQ/L (21.0-32.0); BLOOD UREA NITROGEN 32 MG/DL (7-18); CHLORIDE 96 MEQ/L (98-107); GLOMERULAR FILTRATION RATE 81 ML/MIN (>89); MAGNESIUM 2.8 MG/DL (1.5-2.5); SODIUM (NA) 136 MEQ/L (136-145)
[2017-07-26 07:04] LABS: ALKALINE PHOSPHATASE 51 U/L (45-117); ALT (GPT) 47 U/L (12-78)
--- NOTE | 2017-07-26 08:23 | HHI.PR ---
Subjective Remarks In the bed, says he feels sob but not worse than yesterday. LE edema improved. Has a good UOP. + productive cough. No wheezing. Used BiPAP overnight. he sleeps with head of the bed elevated. No chills or fever. No n/v/d/c. Coughing at times with sputum [production suctioning himself Objective Vitals Vital Signs Date Time Temp Pulse Resp B/P (MAP) Pulse Ox O2 Delivery O2 Flow Rate FiO2 07/26/17 06:00 64 07/26/17 04:01 93 40 07/26/17 04:00 98.7 65 20 115/56 (75) 89 07/26/17 04:00 65 07/26/17 02:00 61 07/26/17 00:00 98.4 68 13 115/66 (82) 91 07/26/17 00:00 63 07/25/17 23:35 91 40 07/25/17 22:00 67 07/25/17 20:00 98.3 71 25 130/78 (95) 89 07/25/17 20:00 71 07/25/17 18:00 76 07/25/17 16:00 98.6 61 17 121/57 (78) 89 07/25/17 16:00 76 07/25/17 14:00 76 07/25/17 14:00 98.6 61 17 121/57 (78) 89 07/25/17 12:00 76 07/25/17 12:00 98.6 61 17 121/57 (78) 89 07/25/17 10:00 76 07/25/17 08:40 88 Nasal Cannula 6.00 07/25/17 08:00 98.4 63 17 122/57 (78) 89 07/25/17 08:00 76 I/O 07/25/17 07/25/17 07/25/17 07/26/17 07/26/17 07/26/17 07:00 15:00 23:00 07:00 15:00 23:00 Intake Total 540 ml 480 ml 240 ml Output Total 1500 ml 1350 ml 650 ml Balance -960 ml -870 ml -410 ml Intake Oral 240 ml 380 ml 240 ml IV Total 300 ml 100 ml Output Urine Total 1500 ml 1350 ml 650 ml # Bowel Movements 1 Result Diagram: 07/26/1723 07/26/17 0623 Imaging Last Impressions Chest X-Ray 07/24/17 0600 Signed Impressions: Service Date/Time: July 05:11 - CONCLUSION: 1. Cardiomegaly with improved slight positive fluid balance. 2. Improved lower lobe aeration. Kendall Le MD CT Angiography 07/19/17 1509 Signed Impressions: Service Date/Time: Wednesday, July 19, 2017 16:01 - CONCLUSION: Suspicious for mild congestive failure There is no central pulmonary emboli. Duglas Johnson MD FACR Objective Remarks GENERAL: Middle age male, obese, in bed, on NC, doesn't appear in acute distress at this time. SKIN: Warm and dry. Red face NECK: Trachea midline. No JVD. CARDIOVASCULAR: Regular rate and rhythm. RESPIRATORY: No accessory muscle use. SOB ,m + cough with sputum. Rhonchi at bases. GASTROINTESTINAL: Abdomen soft, obese, non-tender, nondistended. MUSCULOSKELETAL: Extremities without clubbing, cyanosis, or edema. No obvious deformities. NEUROLOGICAL: Awake and alert. No obvious cranial nerve deficits. Motor grossly within normal limits. Normal speech. PSYCHIATRIC: Appropriate mood and affect; insight and judgment normal. Procedures None A/P Problem List: (1) Acute hypercapnic respiratory failure ICD Code: J96.02 - Acute respiratory failure with hypercapnia Status: Acute Plan: The patient was admitted to the intensive care unit and placed on BiPAP for support. ABG on admission had a pH of 7.38, PCO2 55 and PO2 69 started on IV Solumedrol. Stereoids tapered , DC solumedrol and started on prednisone PO, continue to taper as tolerated. Patient initially started on IV Zosyn and Vancomycin which were discontinued and patient started on Levaquin. Continue BiPAP as needed and supplemental oxygen to keep oxygen saturation more than 92%. Needs Bipap at night on O2 by NC during the day. needs Sleep study as OP. To f/u with pulm as OP as well. Appreciate pulmonary recommendations. We'll follow-up his recommendations. 07/19 respiratory failure improving. Patient down to 6 L on Ventimask and off BiPAP. CT of the chest was negative for PE but suspicious for congestive heart failure. 07/21 I will start the patient IV Lasix 40 mg IV twice a day, check BNP and order and to the echocardiogram to assessed heart function and anatomy. Patient still has increased oxygen requirement. Chest x-ray obtained on 07/21 showed mild infiltrate and effusion in the right lung base. I will broaden IV antibiotic therapy and cover for HCAP and aspiration pneumonia. Was on IV vancomycin and IV Zosyn, now DCd. On IV Levaquin. Check a sputum culture are negative. Blood cx so far negative 07/22 Patient still with elevated o2 requirements. Continue IV antibiotics and increase Lasix to BID since CXR reviewed shows pulmonary congestion. Sputum culture negative. Also patient with CHF with preserved EF 55-60 %. On Lasix 40 mg PO with KCl supplement 20 mEq. Monitor closely UOP, renal function and electrolytes. Replenish electrolytes as need. (2) COPD with acute exacerbation ICD Code: J44.1 - Chronic obstructive pulmonary disease with (acute) exacerbation Status: Acute Plan: As above. DC Solu-Medrol, taper prednisone. Continue BiPAP as needed Pulmonary following. (3) Tobacco abuse disorder ICD Code: Z72.0 - Tobacco use Status: Chronic Plan: Advised smoking cessation. (4) Leukocytosis ICD Code: D72.829 - Elevated white blood cell count, unspecified Status: Acute Plan: WBC increased from 7.6-14.0. Likely secondary to stress and a steroid use. 07/20 WBC slightly decreased from 14 K to 12 K. Patient has no fevers. Continue to monitor CBC with differential. 07/22 WBC stable, continue to monitor. (5) Obesity hypoventilation syndrome ICD Code: E66.2 - Morbid (severe) obesity with alveolar hypoventilation Status: Chronic Plan: Advised weight loss. Continue BiPAP as needed. (6) Hyperglycemia ICD Code: R73.9 - Hyperglycemia, unspecified Status: Acute Plan: No prior history of diabetes mellitus. Likely steroid-induced. Steroids are tapered Continue on SSI with insulin NovoLog and monitor Accu-Cheks. Check hemoglobin A1c Blood sugars stable. (7) CHF (congestive heart failure) ICD Code: I50.9 - Heart failure, unspecified Plan: As evidence on CTA of the chest described above. Unspecified type at this moment. 07/22 Echo cardiac shows mild concentric left ventricle hypertrophy with normal systolic function with an EF of 55-60%. Patient likely has acute diastolic heart failure. We'll continue diuresis with Lasix. Monitor urine output, kidney function and electrolytes closely. Discharge Planning not ready or DC. However improving. Will transfer patient to the floor , need BiPAP overnight and O2 supplement by NC during the day Problem Qualifiers (1) Leukocytosis: Qualified Codes: D72.829 - Elevated white blood cell count, unspecified (2) CHF (congestive heart failure): Qualified Codes: I50.9 - Heart failure, unspecified Gretel Oliveros MD Jul 26, 2017 08:23
[2017-07-26] MEDS: REMOVE OLD PATCH T-DERMAL SCH (09:00)
[2017-07-26] MEDS: DOCUSATE SODIUM 50 MG/SENNA 8.6 MG TAB PO SCH ×2 (09:00→21:00)
[2017-07-26] MEDS: SODIUM CHLORIDE 0.9% FLUSH 10 ML FLUSH SCH ×2 (09:00→21:24)
[2017-07-26] MEDS: predniSONE 20 MG TAB PO SCH ×2 (09:16→21:24)
[2017-07-26] MEDS: NICOTINE 21 MG/24 HR PATCH T-DERMAL SCH (09:16)
[2017-07-26] MEDS: LEVOFLOXACIN 750 MG PREMIX INJ 150 ML IV SCH (09:16)
[2017-07-26] MEDS: FUROSEMIDE 40 MG TAB PO SCH (09:16)
[2017-07-26] MEDS: FAMOTIDINE 20 MG/2 ML VIAL IV PUSH SCH ×2 (09:16→21:24)
--- NOTE | 2017-07-26 15:50 | HHI.PR ---
Subjective Remarks ALERT LESS SOB NO DISTRESS Objective Vital Signs Date Time Temp Pulse Resp B/P (MAP) Pulse Ox O2 Delivery O2 Flow Rate FiO2 07/26/17 14:00 75 07/26/17 13:18 Nasal Cannula 5.00 07/26/17 12:00 74 07/26/17 12:00 98.6 74 25 115/68 (84) 91 07/26/17 11:00 75 24 87 07/26/17 10:00 67 07/26/17 10:00 67 20 105/54 (71) 92 07/26/17 09:10 68 32 101/54 (70) 89 07/26/17 08:01 98.8 62 15 105/55 (72) 88 07/26/17 08:00 62 07/26/17 07:42 89 Nasal Cannula 5.00 07/26/17 07:01 65 16 118/63 (81) 88 07/26/17 06:00 64 07/26/17 04:01 93 40 07/26/17 04:00 98.7 65 20 115/56 (75) 89 07/26/17 04:00 65 07/26/17 02:00 61 07/26/17 00:00 98.4 68 13 115/66 (82) 91 07/26/17 00:00 63 07/25/17 23:35 91 40 07/25/17 22:00 67 07/25/17 20:00 98.3 71 25 130/78 (95) 89 07/25/17 20:00 71 07/25/17 18:00 76 07/25/17 16:00 98.6 61 17 121/57 (78) 89 07/25/17 16:00 76 I/O 07/25/17 07/25/17 07/25/17 07/26/17 07/26/17 07/26/17 07:00 15:00 23:00 07:00 15:00 23:00 Intake Total 540 ml 480 ml 340 ml 150 ml Output Total 1500 ml 1350 ml 650 ml 400 ml Balance -960 ml -870 ml -310 ml -250 ml Intake Oral 240 ml 380 ml 240 ml IV Total 300 ml 100 ml 100 ml 150 ml Output Urine Total 1500 ml 1350 ml 650 ml 400 ml # Bowel Movements 1 1 Result Diagram: 07/26/1762207/26/17622 Objective Remarks Laboratory Tests Test 07/24/17 05:03 07/25/17 05:23 07/26/17 06:23 Blood Urea Nitrogen 30 MG/DL (7-18) 35 MG/DL (7-18) 32 MG/DL (7-18) Random Glucose 149 MG/DL (74-106) 134 MG/DL (74-106) 136 MG/DL (74-106) Sodium Level 135 MEQ/L (136-145) 135 MEQ/L (136-145) Chloride Level 96 MEQ/L (98-107) 93 MEQ/L (98-107) 96 MEQ/L (98-107) Carbon Dioxide Level 33.8 MEQ/L (21.0-32.0) 33.9 MEQ/L (21.0-32.0) 35.4 MEQ/L (21.0-32.0) Estimat Glomerular Filtration Rate 88 ML/MIN (>89) 84 ML/MIN (>89) 81 ML/MIN (>89) White Blood Count 11.5 TH/MM3 (4.0-11.0) Hematocrit 51.4 % (39.0-51.0) Neutrophils (%) (Auto) 75.5 % (16.0-70.0) Neutrophils # (Auto) 8.7 TH/MM3 (1.8-7.7) Albumin 3.3 GM/DL (3.4-5.0) Magnesium Level 2.8 MG/DL (1.5-2.5) Aspartate Amino Transf (AST/SGOT) 13 U/L (15-37) Medications and IVs GENERAL: SKIN: Warm and dry. HEAD: Atraumatic. Normocephalic. EYES: Pupils equal and round. No scleral icterus. No injection or drainage. ENT: No nasal bleeding or discharge. Mucous membranes pink and moist. NECK: Trachea midline. No JVD. CARDIOVASCULAR: Regular rate and rhythm. RESPIRATORY: No accessory muscle use. Clear to auscultation. Breath sounds equal bilaterally. GASTROINTESTINAL: Abdomen soft, non-tender, nondistended. Hepatic and splenic margins not palpable. MUSCULOSKELETAL: Extremities without clubbing, cyanosis, or edema. No obvious deformities. NEUROLOGICAL: Awake and alert. No obvious cranial nerve deficits. Motor grossly within normal limits. Five out of 5 muscle strength in the arms and legs. Normal speech. PSYCHIATRIC: Appropriate mood and affect; insight and judgment normal. Assessment and Plan Assessment and Plan RESPIRATORY FAILURE PNA ? MAIKEL Plan o2 as needed pulm. toilet increase activity NPSG POST D/C Deandra Liriano MD Jul 26, 2017 15:50
[2017-07-27] VITALS (15 sets, daily range): BP systolic 103–138; BP diastolic 58–67; PULSE 61–116; RESP 11–45; TEMP 97.8–100.8; O2SAT 90–99
[2017-07-27] MEDS: ENOXAPARIN SODIUM 40 MG/0.4 ML SYRINGE SQ SCH (02:04)
[2017-07-27] MEDS: ZOLPIDEM TARTRATE 5 MG TAB PO PRN (02:05)
[2017-07-27] MEDS: CHLORHEXIDINE GLUCONATE 2 % 1 PACK (2 CLOTHS) TOP SCH (04:00)
[2017-07-27 05:44] LABS: AUTOMATED NEUTROPHIL # 7.8 TH/MM3 (1.8-7.7); BASOPHIL % 0.1 % (0.0-2.0); EOSINOPHIL % 0.2 % (0.0-4.0); HEMATOCRIT 50.3 % (39.0-51.0); HEMO FLAGS DIFF FINAL; LYMPH % 17.9 % (9.0-44.0); LYMPHOCYTE # 1.9 TH/MM3 (1.0-4.8); MEAN CELL VOLUME 97.9 FL (80.0-100.0); MEAN CORPUSCULAR HEMOGLOBIN 32.9 PG (27.0-34.0); MEAN CORPUSCULAR HGB CONC 33.6 % (32.0-36.0); MONO % 7.3 % (0.0-8.0); NEUT % 74.5 % (16.0-70.0); PLATELET COUNT 196 TH/MM3 (150-450); RED BLOOD COUNT 5.14 MIL/MM3 (4.50-5.90); WHITE BLOOD COUNT 10.5 TH/MM3 (4.0-11.0)
[2017-07-27 06:18] LABS: BICARBONATE 34.6 MEQ/L (21.0-32.0); MAGNESIUM 2.5 MG/DL (1.5-2.5); POTASSIUM 4.2 MEQ/L (3.5-5.1)
[2017-07-27] MEDS: INSULIN ASPART SUPPLEMENTAL SCALE SQ SCH ×4 (06:33→20:28)
[2017-07-27] MEDS: NICOTINE 21 MG/24 HR PATCH T-DERMAL SCH (09:00)
[2017-07-27] MEDS: SODIUM CHLORIDE 0.9% FLUSH 10 ML FLUSH SCH ×2 (09:00→20:23)
[2017-07-27] MEDS: DOCUSATE SODIUM 50 MG/SENNA 8.6 MG TAB PO SCH ×2 (09:00→20:21)
[2017-07-27] MEDS: FAMOTIDINE 20 MG/2 ML VIAL IV PUSH SCH ×2 (09:00→20:21)
[2017-07-27] MEDS: REMOVE OLD PATCH T-DERMAL SCH (09:00)
--- NOTE | 2017-07-27 09:11 | HHI.PR ---
Subjective Remarks In the bed, on BIPAP . Says she had a difficult night as he was sob and could not sleep says he was sweating because was to hot in the rom. No chest pain . Cough yellow /whitish sputum. No fever or chills. No wheezing at this time. Using O2 by NC at home. Says he did not require O2 prior to admission. Says he gets tired and more sob during the day especially after he is eating or any other effort. Has a good UOP. Objective Vitals Vital Signs Date Time Temp Pulse Resp B/P (MAP) Pulse Ox O2 Delivery O2 Flow Rate FiO2 07/27/17 08:08 93 Nasal Cannula 5.00 07/27/17 06:00 61 07/27/17 04:31 95 40 07/27/17 04:00 97.8 62 11 106/66 (79) 90 07/27/17 04:00 62 07/27/17 02:30 95 40 07/27/17 02:00 82 07/27/17 00:00 73 07/27/17 00:00 98.7 73 45 124/63 (83) 92 07/26/17 22:00 68 07/26/17 21:20 90 Nasal Cannula 5.00 07/26/17 20:00 78 07/26/17 20:00 97.9 78 23 135/70 (91) 93 07/26/17 19:00 92 Nasal Cannula 5.00 07/26/17 18:00 79 07/26/17 17:00 71 26 91 07/26/17 16:01 98.8 77 29 107/70 (82) 90 07/26/17 16:00 75 07/26/17 15:00 75 18 90 07/26/17 14:00 75 23 91 07/26/17 14:00 75 07/26/17 13:18 Nasal Cannula 5.00 07/26/17 13:00 73 22 89 07/26/17 12:00 74 07/26/17 12:00 98.6 74 25 115/68 (84) 91 07/26/17 11:00 75 24 87 07/26/17 10:00 67 07/26/17 10:00 67 20 105/54 (71) 92 07/26/17 09:10 68 32 101/54 (70) 89 I/O 07/26/17 07/26/17 07/26/17 07/27/17 07/27/17 07/27/17 07:00 15:00 23:00 07:00 15:00 23:00 Intake Total 340 ml 150 ml 240 ml Output Total 650 ml 400 ml 550 ml 600 ml Balance -310 ml -250 ml -550 ml -360 ml Intake Oral 240 ml 240 ml IV Total 100 ml 150 ml Output Urine Total 650 ml 400 ml 550 ml 600 ml # Bowel Movements 1 2 0 Result Diagram: 07/27/17 0449 07/27/17 0449 Imaging Last Impressions Chest X-Ray 07/24/17 0600 Signed Impressions: Service Date/Time: July 05:11 - CONCLUSION: 1. Cardiomegaly with improved slight positive fluid balance. 2. Improved lower lobe aeration. Kendall Le MD CT Angiography 07/19/17 1509 Signed Impressions: Service Date/Time: Wednesday, July 19, 2017 16:01 - CONCLUSION: Suspicious for mild congestive failure There is no central pulmonary emboli. Duglas Johnson MD FACR Objective Remarks GENERAL: Middle age male, obese, in bed, on NC, doesn't appear in acute distress at this time. SKIN: Warm and dry. Red face NECK: Trachea midline. No JVD. CARDIOVASCULAR: Regular rate and rhythm. RESPIRATORY: No accessory muscle use. SOB ,m + cough with sputum. Rhonchi at bases. GASTROINTESTINAL: Abdomen soft, obese, non-tender, nondistended. MUSCULOSKELETAL: Extremities without clubbing, cyanosis, or edema. No obvious deformities. NEUROLOGICAL: Awake and alert. No obvious cranial nerve deficits. Motor grossly within normal limits. Normal speech. PSYCHIATRIC: Appropriate mood and affect; insight and judgment normal. Procedures None A/P Problem List: (1) Acute hypercapnic respiratory failure ICD Code: J96.02 - Acute respiratory failure with hypercapnia Status: Acute (2) COPD with acute exacerbation ICD Code: J44.1 - Chronic obstructive pulmonary disease with (acute) exacerbation Status: Acute (3) Tobacco abuse disorder ICD Code: Z72.0 - Tobacco use Status: Chronic (4) Leukocytosis ICD Code: D72.829 - Elevated white blood cell count, unspecified Status: Acute (5) Obesity hypoventilation syndrome ICD Code: E66.2 - Morbid (severe) obesity with alveolar hypoventilation Status: Chronic (6) Hyperglycemia ICD Code: R73.9 - Hyperglycemia, unspecified Status: Acute (7) CHF (congestive heart failure) ICD Code: I50.9 - Heart failure, unspecified Discharge Planning (1) Acute hypercapnic respiratory failure ICD Code: J96.02 - Acute respiratory failure with hypercapnia Status: Acute Plan: The patient was admitted to the intensive care unit and placed on BiPAP for support. ABG on admission had a pH of 7.38, PCO2 55 and PO2 69 started on IV Solumedrol. Steroids tapered , DC solumedrol and started on prednisone PO, continue to taper as tolerated. Patient initially started on IV Zosyn and Vancomycin which were discontinued and patient started on Levaquin. Continue BiPAP as needed and supplemental oxygen to keep oxygen saturation more than 92%. Needs Bipap at night on O2 by NC during the day. needs Sleep study as OP. To f/u with pulm as OP as well. Appreciate pulmonary recommendations. We'll follow-up his recommendations. 07/19 respiratory failure improving. Patient down to 6 L on Ventimask and off BiPAP. CT of the chest was negative for PE but suspicious for congestive heart failure. 07/21 I will start the patient IV Lasix 40 mg IV twice a day, check BNP and order and to the echocardiogram to assessed heart function and anatomy. Patient still has increased oxygen requirement. Chest x-ray obtained on 07/21 showed mild infiltrate and effusion in the right lung base. I will broaden IV antibiotic therapy and cover for HCAP and aspiration pneumonia. Was on IV vancomycin and IV Zosyn, now DCd. On IV Levaquin. Check a sputum culture are negative. Blood cx so far negative 07/22 Patient still with elevated o2 requirements. Continue IV antibiotics and increase Lasix to BID since CXR reviewed shows pulmonary congestion. Sputum culture negative. Also patient with CHF with preserved EF 55-60 %. On Lasix 40 mg PO with KCl supplement 20 mEq. Monitor closely UOP, renal function and electrolytes. Replenish electrolytes as need. (2) COPD with acute exacerbation ICD Code: J44.1 - Chronic obstructive pulmonary disease with (acute) exacerbation Status: Acute Plan: As above. DC Solu-Medrol, taper prednisone. Continue BiPAP as needed Pulmonary following. (3) Tobacco abuse disorder ICD Code: Z72.0 - Tobacco use Status: Chronic Plan: Advised smoking cessation. (4) Leukocytosis ICD Code: D72.829 - Elevated white blood cell count, unspecified Status: Acute Plan: WBC increased from 7.6-14.0. Likely secondary to stress and a steroid use. 07/20 WBC slightly decreased from 14 K to 12 K. Patient has no fevers. Continue to monitor CBC with differential. 07/22 WBC stable, continue to monitor. (5) Obesity hypoventilation syndrome ICD Code: E66.2 - Morbid (severe) obesity with alveolar hypoventilation Status: Chronic Plan: Advised weight loss. Continue BiPAP as needed. (6) Hyperglycemia ICD Code: R73.9 - Hyperglycemia, unspecified Status: Acute Plan: No prior history of diabetes mellitus. Likely steroid-induced. Steroids are tapered Continue on SSI with insulin NovoLog and monitor Accu-Cheks. Check hemoglobin A1c Blood sugars stable. (7) CHF (congestive heart failure) ICD Code: I50.9 - Heart failure, unspecified Plan: As evidence on CTA of the chest described above. Unspecified type at this moment. 07/22 Echo cardiac shows mild concentric left ventricle hypertrophy with normal systolic function with an EF of 55-60%. Patient likely has acute diastolic heart failure. We'll continue diuresis with Lasix. Monitor urine output, kidney function and electrolytes closely. DC Plan: Case management consulted for DC plan. Not ready or DC. Transfer patient to the floor , needs BiPAP overnight and O2 supplement by NC during the day. Problem Qualifiers (1) Leukocytosis: Qualified Codes: D72.829 - Elevated white blood cell count, unspecified (2) CHF (congestive heart failure): Qualified Codes: I50.9 - Heart failure, unspecified Gretel Oliveros MD Jul 27, 2017 09:11
[2017-07-27] MEDS: predniSONE 20 MG TAB PO SCH ×2 (09:50→20:21)
[2017-07-27] MEDS: LEVOFLOXACIN 750 MG PREMIX INJ 150 ML IV SCH (09:50)
[2017-07-27] MEDS: FUROSEMIDE 40 MG TAB PO SCH (09:51)
--- NOTE | 2017-07-27 14:14 | HHI.PR ---
Subjective Remarks ALERT LESS SOB NO DISTRESS Objective Vital Signs Date Time Temp Pulse Resp B/P (MAP) Pulse Ox O2 Delivery O2 Flow Rate FiO2 07/27/17 12:00 97.8 85 16 113/62 (79) 90 07/27/17 12:00 83 07/27/17 10:00 78 07/27/17 08:08 93 Nasal Cannula 5.00 07/27/17 08:00 98.0 71 16 103/67 (79) 90 07/27/17 08:00 78 07/27/17 07:00 92 Nasal Cannula 5.00 07/27/17 06:00 61 07/27/17 04:31 95 40 07/27/17 04:00 97.8 62 11 106/66 (79) 90 07/27/17 04:00 62 07/27/17 02:30 95 40 07/27/17 02:00 82 07/27/17 00:00 73 07/27/17 00:00 98.7 73 45 124/63 (83) 92 07/26/17 22:00 68 07/26/17 21:20 90 Nasal Cannula 5.00 07/26/17 20:00 78 07/26/17 20:00 97.9 78 23 135/70 (91) 93 07/26/17 19:00 92 Nasal Cannula 5.00 07/26/17 18:00 79 07/26/17 17:00 71 26 91 07/26/17 16:01 98.8 77 29 107/70 (82) 90 07/26/17 16:00 75 07/26/17 15:00 75 18 90 I/O 07/26/17 07/26/17 07/26/17 07/27/17 07/27/17 07/27/17 07:00 15:00 23:00 07:00 15:00 23:00 Intake Total 340 ml 150 ml 240 ml Output Total 650 ml 400 ml 550 ml 600 ml Balance -310 ml -250 ml -550 ml -360 ml Intake Oral 240 ml 240 ml IV Total 100 ml 150 ml Output Urine Total 650 ml 400 ml 550 ml 600 ml # Bowel Movements 1 2 0 Result Diagram: 07/27/1744807/27/17448 Objective Remarks GENERAL: SKIN: Warm and dry. HEAD: Atraumatic. Normocephalic. EYES: Pupils equal and round. No scleral icterus. No injection or drainage. ENT: No nasal bleeding or discharge. Mucous membranes pink and moist. NECK: Trachea midline. No JVD. CARDIOVASCULAR: Regular rate and rhythm. RESPIRATORY: No accessory muscle use. Clear to auscultation. Breath sounds equal bilaterally. GASTROINTESTINAL: Abdomen soft, non-tender, nondistended. Hepatic and splenic margins not palpable. MUSCULOSKELETAL: Extremities without clubbing, cyanosis, or edema. No obvious deformities. NEUROLOGICAL: Awake and alert. No obvious cranial nerve deficits. Motor grossly within normal limits. Five out of 5 muscle strength in the arms and legs. Normal speech. PSYCHIATRIC: Appropriate mood and affect; insight and judgment normal. Laboratory Tests Test 07/24/17 05:03 07/25/17 05:23 07/26/17 06:23 Blood Urea Nitrogen 30 MG/DL (7-18) 35 MG/DL (7-18) 32 MG/DL (7-18) Random Glucose 149 MG/DL (74-106) 134 MG/DL (74-106) 136 MG/DL (74-106) Sodium Level 135 MEQ/L (136-145) 135 MEQ/L (136-145) Chloride Level 96 MEQ/L (98-107) 93 MEQ/L (98-107) 96 MEQ/L (98-107) Carbon Dioxide Level 33.8 MEQ/L (21.0-32.0) 33.9 MEQ/L (21.0-32.0) 35.4 MEQ/L (21.0-32.0) Estimat Glomerular Filtration Rate 88 ML/MIN (>89) 84 ML/MIN (>89) 81 ML/MIN (>89) White Blood Count 11.5 TH/MM3 (4.0-11.0) Hematocrit 51.4 % (39.0-51.0) Neutrophils (%) (Auto) 75.5 % (16.0-70.0) Neutrophils # (Auto) 8.7 TH/MM3 (1.8-7.7) Albumin 3.3 GM/DL (3.4-5.0) Magnesium Level 2.8 MG/DL (1.5-2.5) Aspartate Amino Transf (AST/SGOT) 13 U/L (15-37) Assessment and Plan Assessment and Plan RESPIRATORY FAILURE PNA ? MAIKEL Plan o2 as needed pulm. toilet increase activity NPSG POST D/C Deandra Liriano MD Jul 27, 2017 14:14
[2017-07-28] VITALS (11 sets, daily range): BP systolic 111–124; BP diastolic 58–69; PULSE 60–77; RESP 18–20; TEMP 97.4–98.5; O2SAT 91–96
[2017-07-28] MEDS: ENOXAPARIN SODIUM 40 MG/0.4 ML SYRINGE SQ SCH (01:47)
[2017-07-28] MEDS: CHLORHEXIDINE GLUCONATE 2 % 1 PACK (2 CLOTHS) TOP SCH (03:10)
[2017-07-28] MEDS: INSULIN ASPART SUPPLEMENTAL SCALE SQ SCH ×4 (06:02→21:00)
[2017-07-28] MEDS: DOCUSATE SODIUM 50 MG/SENNA 8.6 MG TAB PO SCH ×2 (09:00→21:00)
[2017-07-28] MEDS: REMOVE OLD PATCH T-DERMAL SCH (09:00)
[2017-07-28] MEDS: LEVOFLOXACIN 750 MG PREMIX INJ 150 ML IV SCH (09:24)
[2017-07-28] MEDS: predniSONE 20 MG TAB PO SCH (09:25)
[2017-07-28] MEDS: SODIUM CHLORIDE 0.9% FLUSH 10 ML FLUSH SCH ×2 (09:25→21:00)
[2017-07-28] MEDS: FAMOTIDINE 20 MG/2 ML VIAL IV PUSH SCH ×2 (09:25→21:20)
[2017-07-28] MEDS: FUROSEMIDE 40 MG TAB PO SCH (09:25)
[2017-07-28] MEDS: NICOTINE 21 MG/24 HR PATCH T-DERMAL SCH (09:27)
--- NOTE | 2017-07-28 12:41 | HHI.PR ---
Subjective Remarks Patient in the bed. He is on 4L NC at this time. Says sob is improved some. Says he was in the chair and ate breakfast. Feels weak/ No n/v/d/c. Not much cough. No wheezing at this time. Objective Vitals Vital Signs Date Time Temp Pulse Resp B/P (MAP) Pulse Ox O2 Delivery O2 Flow Rate FiO2 07/28/17 08:47 Nasal Cannula 5.00 40 07/28/17 08:02 97.4 64 20 111/60 (77) 91 07/28/17 05:43 95 40 07/28/17 04:12 62 07/28/17 04:00 97.8 60 18 120/62 (81) 96 07/28/17 01:38 95 40 07/28/17 00:00 97.8 67 20 124/69 (87) 93 07/27/17 20:40 94 Nasal Cannula 5.00 07/27/17 20:33 Nasal Cannula 5.00 07/27/17 20:00 97.9 79 20 138/62 (87) 96 07/27/17 16:00 116 07/27/17 15:41 98.1 75 19 125/59 (81) 95 07/27/17 14:00 82 I/O 07/27/17 07/27/17 07/27/17 07/28/17 07/28/17 07/28/17 07:00 15:00 23:00 07:00 15:00 23:00 Intake Total 240 ml 380 ml 480 ml Output Total 600 ml 850 ml Balance -360 ml -470 ml 480 ml Intake Oral 240 ml 380 ml 480 ml Output Urine Total 600 ml 850 ml # Voids 2 # Bowel Movements 0 1 Result Diagram: 07/27/17 0449 07/27/17 0449 Imaging Last Impressions Chest X-Ray 07/24/17 0600 Signed Impressions: Service Date/Time: July 05:11 - CONCLUSION: 1. Cardiomegaly with improved slight positive fluid balance. 2. Improved lower lobe aeration. Kendall Le MD CT Angiography 07/19/17 1509 Signed Impressions: Service Date/Time: Wednesday, July 19, 2017 16:01 - CONCLUSION: Suspicious for mild congestive failure There is no central pulmonary emboli. Duglas Johnson MD FACR Objective Remarks GENERAL: Middle age male, obese, in bed, on NC, doesn't appear in acute distress at this time. SKIN: Warm and dry. Red face NECK: Trachea midline. No JVD. CARDIOVASCULAR: Regular rate and rhythm. RESPIRATORY: No accessory muscle use. SOB ,m + cough with sputum. Rhonchi at bases. GASTROINTESTINAL: Abdomen soft, obese, non-tender, nondistended. MUSCULOSKELETAL: Extremities without clubbing, cyanosis, or edema. No obvious deformities. NEUROLOGICAL: Awake and alert. No obvious cranial nerve deficits. Motor grossly within normal limits. Normal speech. PSYCHIATRIC: Appropriate mood and affect; insight and judgment normal. Procedures None A/P Problem List: (1) Acute hypercapnic respiratory failure ICD Code: J96.02 - Acute respiratory failure with hypercapnia Status: Acute (2) COPD with acute exacerbation ICD Code: J44.1 - Chronic obstructive pulmonary disease with (acute) exacerbation Status: Acute (3) Tobacco abuse disorder ICD Code: Z72.0 - Tobacco use Status: Chronic (4) Leukocytosis ICD Code: D72.829 - Elevated white blood cell count, unspecified Status: Acute (5) Obesity hypoventilation syndrome ICD Code: E66.2 - Morbid (severe) obesity with alveolar hypoventilation Status: Chronic (6) Hyperglycemia ICD Code: R73.9 - Hyperglycemia, unspecified Status: Acute (7) CHF (congestive heart failure) ICD Code: I50.9 - Heart failure, unspecified Discharge Planning (1) Acute hypercapnic respiratory failure ICD Code: J96.02 - Acute respiratory failure with hypercapnia Status: Acute Plan: The patient was admitted to the intensive care unit and placed on BiPAP for support. ABG on admission had a pH of 7.38, PCO2 55 and PO2 69 started on IV Solumedrol. Steroids tapered , DC solumedrol and started on prednisone PO, continue to taper as tolerated. Patient initially started on IV Zosyn and Vancomycin which were discontinued and patient started on Levaquin. Continue BiPAP as needed and supplemental oxygen to keep oxygen saturation more than 92%. Needs Bipap at night on O2 by NC during the day. needs Sleep study as OP. To f/u with pulm as OP as well. Appreciate pulmonary recommendations. We'll follow-up his recommendations. 07/19 respiratory failure improving. Patient down to 6 L on Ventimask and off BiPAP. CT of the chest was negative for PE but suspicious for congestive heart failure. 07/21 I will start the patient IV Lasix 40 mg IV twice a day, check BNP and order and to the echocardiogram to assessed heart function and anatomy. Patient still has increased oxygen requirement. Chest x-ray obtained on 07/21 showed mild infiltrate and effusion in the right lung base. I will broaden IV antibiotic therapy and cover for HCAP and aspiration pneumonia. Was on IV vancomycin and IV Zosyn, now DCd. On IV Levaquin. Check a sputum culture are negative. Blood cx so far negative 07/22 Patient still with elevated o2 requirements. Continue IV antibiotics and increase Lasix to BID since CXR reviewed shows pulmonary congestion. Sputum culture negative. Also patient with CHF with preserved EF 55-60 %. On Lasix 40 mg PO with KCl supplement 20 mEq. Monitor closely UOP, renal function and electrolytes. Replenish electrolytes as need. (2) COPD with acute exacerbation ICD Code: J44.1 - Chronic obstructive pulmonary disease with (acute) exacerbation Status: Acute Plan: As above. DC Solu-Medrol, taper prednisone. Continue BiPAP as needed Pulmonary following. (3) Tobacco abuse disorder ICD Code: Z72.0 - Tobacco use Status: Chronic Plan: Advised smoking cessation. (4) Leukocytosis ICD Code: D72.829 - Elevated white blood cell count, unspecified Status: Acute Plan: WBC increased from 7.6-14.0. Likely secondary to stress and a steroid use. 07/20 WBC slightly decreased from 14 K to 12 K. Patient has no fevers. Continue to monitor CBC with differential. 07/22 WBC stable, continue to monitor. (5) Obesity hypoventilation syndrome ICD Code: E66.2 - Morbid (severe) obesity with alveolar hypoventilation Status: Chronic Plan: Advised weight loss. Continue BiPAP as needed. (6) Hyperglycemia ICD Code: R73.9 - Hyperglycemia, unspecified Status: Acute Plan: No prior history of diabetes mellitus. Likely steroid-induced. Steroids are tapered Continue on SSI with insulin NovoLog and monitor Accu-Cheks. Check hemoglobin A1c Blood sugars stable. (7) CHF (congestive heart failure) ICD Code: I50.9 - Heart failure, unspecified Plan: As evidence on CTA of the chest described above. Unspecified type at this moment. 07/22 Echo cardiac shows mild concentric left ventricle hypertrophy with normal systolic function with an EF of 55-60%. Patient likely has acute diastolic heart failure. We'll continue diuresis with Lasix. Monitor urine output, kidney function and electrolytes closely. DC Plan: Case management consulted for DC plan. Not ready or DC. Transfer patient to the floor , needs BiPAP overnight and O2 supplement by NC during the day. pAtient still requiring 4-5 L NC during the day and biapap at night. Case management consulted for DC plan . Problem Qualifiers (1) Leukocytosis: Qualified Codes: D72.829 - Elevated white blood cell count, unspecified (2) CHF (congestive heart failure): Qualified Codes: I50.9 - Heart failure, unspecified Gretel Oliveros MD Jul 28, 2017 12:41
--- NOTE | 2017-07-28 16:26 | HHI.PR ---
Subjective Remarks On N/C at 3 L. Feels better. Off Bipap now. No chest pain. Will need home O2 Objective Vital Signs Date Time Temp Pulse Resp B/P (MAP) Pulse Ox O2 Delivery O2 Flow Rate FiO2 07/28/17 13:16 95 Nasal Cannula 4.00 07/28/17 12:02 98.3 73 20 119/59 (79) 93 07/28/17 08:47 Nasal Cannula 5.00 40 07/28/17 08:02 97.4 64 20 111/60 (77) 91 07/28/17 05:43 95 40 07/28/17 04:12 62 07/28/17 04:00 97.8 60 18 120/62 (81) 96 07/28/17 01:38 95 40 07/28/17 00:00 97.8 67 20 124/69 (87) 93 07/27/17 20:40 94 Nasal Cannula 5.00 07/27/17 20:33 Nasal Cannula 5.00 07/27/17 20:00 97.9 79 20 138/62 (87) 96 I/O 07/27/17 07/27/17 07/27/17 07/28/17 07/28/17 07/28/17 07:00 15:00 23:00 07:00 15:00 23:00 Intake Total 240 ml 380 ml 480 ml Output Total 600 ml 850 ml Balance -360 ml -470 ml 480 ml Intake Oral 240 ml 380 ml 480 ml Output Urine Total 600 ml 850 ml # Voids 2 # Bowel Movements 0 1 Result Diagram: 07/27/17 0449 07/27/17 0449 Objective Remarks GENERAL: This is a moderately obese middle-aged white male who is alert and cooperative . HEAD, EYES, EARS, NOSE, THROAT: Head normocephalic. The pupils are reactive. Tongue is moist. Throat is clear. Nasal mucosa clear NECK: The neck is supple. No venous distention. Trachea is midline. CHEST: Distant breath sounds with expiratory wheezes over both lung chaney. Prolonged expirations. HEART: Heart sounds are irregular. S1-S2. No murmur. No S3. ABDOMEN: Abdomen soft and benign. No masses. No organomegaly or tenderness. The bowel sounds are active. EXTREMITIES:No edema. decreased peripheral pulses. NEUROLOGIC: Reflexes are 1+. No gross motor deficits. RECTAL: Rectal exam is deferred. Assessment and Plan Assessment and Plan IMPRESSION: 1. Acute respiratory failure. 2. COPD. 3. Chronic bronchitis. 4. Probable obstructive sleep apnea syndrome. 5. History of hypertension. 6. R/O PE 7. CHF Plan : 1. D/C Levaquin IV 2. Wean o2 to N/C 4 L 3. will Arrange Sleep test as OP 4. Nebs qid , duoneb. 5. Lovenox 40 mg S/Q daily 6. prednisone 20 mg bid and taper 7. Switch to PO Lasix 40 mg daily and KCl 20 meq. 8. Try to get Home CPAP machine Alisha Phan MD Jul 28, 2017 16:26
[2017-07-28] MEDS ORDERED: PILL SPLITTER OTHER PRN (17:00)
[2017-07-29] VITALS (10 sets, daily range): BP systolic 112–130; BP diastolic 56–76; PULSE 62–84; RESP 16–20; TEMP 97.2–98.3; O2SAT 93–98
[2017-07-29] MEDS: CHLORHEXIDINE GLUCONATE 2 % 1 PACK (2 CLOTHS) TOP SCH (02:58)
[2017-07-29] MEDS: ENOXAPARIN SODIUM 40 MG/0.4 ML SYRINGE SQ SCH (04:00)
[2017-07-29] MEDS: INSULIN ASPART SUPPLEMENTAL SCALE SQ SCH ×3 (05:52→17:36)
[2017-07-29] MEDS: DOCUSATE SODIUM 50 MG/SENNA 8.6 MG TAB PO SCH ×2 (08:17→21:00)
[2017-07-29] MEDS: REMOVE OLD PATCH T-DERMAL SCH (08:17)
[2017-07-29] MEDS: NICOTINE 21 MG/24 HR PATCH T-DERMAL SCH (08:17)
[2017-07-29] MEDS: predniSONE 20 MG TAB PO SCH (08:17)
[2017-07-29] MEDS: FUROSEMIDE 40 MG TAB PO SCH (08:17)
[2017-07-29] MEDS: FAMOTIDINE 20 MG/2 ML VIAL IV PUSH SCH ×2 (08:18→21:22)
[2017-07-29] MEDS: SODIUM CHLORIDE 0.9% FLUSH 10 ML FLUSH SCH ×2 (08:18→21:22)
--- NOTE | 2017-07-29 10:41 | HHI.PR ---
Subjective Remarks In bed, feels tired and says he did not get his breakfast yet. 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 No n/v/d/c. Denies chest pain or sob at this time. He is not wheezing. No fever or chills. Objective Vitals Vital Signs Date Time Temp Pulse Resp B/P (MAP) Pulse Ox O2 Delivery O2 Flow Rate FiO2 07/29/17 08:29 Nasal Cannula 3.00 07/29/17 08:09 94 Nasal Cannula 3.00 07/29/17 08:02 97.3 63 20 129/64 (85) 94 07/29/17 04:16 98 40 07/29/17 04:00 Room Air Bi-Pap 07/29/17 04:00 97.5 64 18 116/63 (80) 94 07/29/17 00:00 98.3 79 19 119/65 (83) 96 07/29/17 00:00 Room Air 07/28/17 20:09 92 Nasal Cannula 4.00 07/28/17 20:00 Room Air 07/28/17 20:00 98.3 77 20 121/58 (79) 95 07/28/17 20:00 77 07/28/17 16:02 98.5 70 20 114/58 (76) 92 07/28/17 13:16 95 Nasal Cannula 4.00 07/28/17 12:02 98.3 73 20 119/59 (79) 93 I/O 07/28/17 07/28/17 07/28/17 07/29/17 07/29/17 07/29/17 06:59 14:59 22:59 06:59 14:59 22:59 Intake Total 480 ml 600 ml 480 ml Output Total 800 ml Balance 480 ml -200 ml 480 ml Intake Oral 480 ml 600 ml 480 ml Output Urine Total 800 ml # Voids 2 6 3 # Bowel Movements 4 Result Diagram: 07/27/1744807/27/17448 Imaging Last Impressions Chest X-Ray 07/24/17 0600 Signed Impressions: Service Date/Time: July 05:11 - CONCLUSION: 1. Cardiomegaly with improved slight positive fluid balance. 2. Improved lower lobe aeration. Kendall Le MD CT Angiography 07/19/17 1509 Signed Impressions: Service Date/Time: Wednesday, July 19, 2017 16:01 - CONCLUSION: Suspicious for mild congestive failure There is no central pulmonary emboli. Duglas Johnson MD FACR Objective Remarks GENERAL: Middle age male, obese, in bed, on NC, doesn't appear in acute distress at this time. SKIN: Warm and dry. Red face NECK: Trachea midline. No JVD. CARDIOVASCULAR: Regular rate and rhythm. RESPIRATORY: No accessory muscle use. Less SOB. +cough with some sputum improved. Rhonchi at bases. GASTROINTESTINAL: Abdomen soft, obese, non-tender, nondistended. MUSCULOSKELETAL: Extremities without clubbing, cyanosis, or edema. No obvious deformities. NEUROLOGICAL: Awake and alert. No obvious cranial nerve deficits. Motor grossly within normal limits. Normal speech. PSYCHIATRIC: Appropriate mood and affect; insight and judgment normal. Procedures None A/P Problem List: (1) Acute hypercapnic respiratory failure ICD Code: J96.02 - Acute respiratory failure with hypercapnia Status: Acute (2) COPD with acute exacerbation ICD Code: J44.1 - Chronic obstructive pulmonary disease with (acute) exacerbation Status: Acute (3) Tobacco abuse disorder ICD Code: Z72.0 - Tobacco use Status: Chronic (4) Leukocytosis ICD Code: D72.829 - Elevated white blood cell count, unspecified Status: Acute (5) Obesity hypoventilation syndrome ICD Code: E66.2 - Morbid (severe) obesity with alveolar hypoventilation Status: Chronic (6) Hyperglycemia ICD Code: R73.9 - Hyperglycemia, unspecified Status: Acute (7) CHF (congestive heart failure) ICD Code: I50.9 - Heart failure, unspecified Discharge Planning (1) Acute hypercapnic respiratory failure ICD Code: J96.02 - Acute respiratory failure with hypercapnia Status: Acute Plan: The patient was admitted to the intensive care unit and placed on BiPAP for support. ABG on admission had a pH of 7.38, PCO2 55 and PO2 69 started on IV Solumedrol. Steroids tapered , DC solumedrol and started on prednisone PO, continue to taper as tolerated. Patient initially started on IV Zosyn and Vancomycin which were discontinued and patient started on Levaquin. Continue BiPAP as needed and supplemental oxygen to keep oxygen saturation more than 92%. Needs Bipap at night on O2 by NC during the day. needs Sleep study as OP. To f/u with pulm as OP as well. Appreciate pulmonary recommendations. We'll follow-up his recommendations. 07/19 respiratory failure improving. Patient down to 6 L on Ventimask and off BiPAP. CT of the chest was negative for PE but suspicious for congestive heart failure. 07/21 I will start the patient IV Lasix 40 mg IV twice a day, check BNP and order and to the echocardiogram to assessed heart function and anatomy. Patient still has increased oxygen requirement. Chest x-ray obtained on 07/21 showed mild infiltrate and effusion in the right lung base. I will broaden IV antibiotic therapy and cover for HCAP and aspiration pneumonia. Was on IV vancomycin and IV Zosyn, now DCd. On IV Levaquin. Check a sputum culture are negative. Blood cx so far negative 07/22 Patient still with elevated o2 requirements. Continue IV antibiotics and increase Lasix to BID since CXR reviewed shows pulmonary congestion. Sputum culture negative. Also patient with CHF with preserved EF 55-60 %. On Lasix 40 mg PO with KCl supplement 20 mEq. Monitor closely UOP, renal function and electrolytes. Replenish electrolytes as need. (2) COPD with acute exacerbation ICD Code: J44.1 - Chronic obstructive pulmonary disease with (acute) exacerbation Status: Acute Plan: As above. DC Solu-Medrol, taper prednisone. Continue BiPAP as needed Pulmonary following. (3) Tobacco abuse disorder ICD Code: Z72.0 - Tobacco use Status: Chronic Plan: Advised smoking cessation. (4) Leukocytosis ICD Code: D72.829 - Elevated white blood cell count, unspecified Status: Acute Plan: WBC increased from 7.6-14.0. Likely secondary to stress and a steroid use. 07/20 WBC slightly decreased from 14 K to 12 K. Patient has no fevers. Continue to monitor CBC with differential. 07/22 WBC stable, continue to monitor. (5) Obesity hypoventilation syndrome ICD Code: E66.2 - Morbid (severe) obesity with alveolar hypoventilation Status: Chronic Plan: Advised weight loss. Continue BiPAP as needed. (6) Hyperglycemia ICD Code: R73.9 - Hyperglycemia, unspecified Status: Acute Plan: No prior history of diabetes mellitus. Likely steroid-induced. Steroids are tapered Continue on SSI with insulin NovoLog and monitor Accu-Cheks. Check hemoglobin A1c Blood sugars stable. (7) CHF (congestive heart failure) ICD Code: I50.9 - Heart failure, unspecified Plan: As evidence on CTA of the chest described above. Unspecified type at this moment. 07/22 Echo cardiac shows mild concentric left ventricle hypertrophy with normal systolic function with an EF of 55-60%. Patient likely has acute diastolic heart failure. We'll continue diuresis with Lasix. Monitor urine output, kidney function and electrolytes closely. DC Plan: Case management consulted for DC plan. Not ready or DC. Patient still requiring 4-5 L NC during the day and biapap at night. Case management consulted for DC plan . Problem Qualifiers (1) Leukocytosis: Qualified Codes: D72.829 - Elevated white blood cell count, unspecified (2) CHF (congestive heart failure): Qualified Codes: I50.9 - Heart failure, unspecified Gretel Oliveros MD Jul 29, 2017 10:40
--- NOTE | 2017-07-29 17:24 | HHI.PR ---
Subjective Remarks On N/C at 3 L. Feels better.Was on Bipap this am.. No chest pain. Will need home O2 at 2 L. Will need rehab Objective Vital Signs Date Time Temp Pulse Resp B/P (MAP) Pulse Ox O2 Delivery O2 Flow Rate FiO2 07/29/17 12:03 97.2 62 20 130/62 (84) 95 07/29/17 08:29 Nasal Cannula 3.00 07/29/17 08:09 94 Nasal Cannula 3.00 07/29/17 08:02 97.3 63 20 129/64 (85) 94 07/29/17 04:16 98 40 07/29/17 04:00 Room Air Bi-Pap 07/29/17 04:00 97.5 64 18 116/63 (80) 94 07/29/17 00:00 98.3 79 19 119/65 (83) 96 07/29/17 00:00 Room Air 07/28/17 20:09 92 Nasal Cannula 4.00 07/28/17 20:00 Room Air 07/28/17 20:00 98.3 77 20 121/58 (79) 95 07/28/17 20:00 77 I/O 07/28/17 07/28/17 07/28/17 07/29/17 07/29/17 07/29/17 07:00 15:00 23:00 07:00 15:00 23:00 Intake Total 480 ml 600 ml 480 ml Output Total 800 ml Balance 480 ml -200 ml 480 ml Intake Oral 480 ml 600 ml 480 ml Output Urine Total 800 ml # Voids 2 6 3 # Bowel Movements 4 Result Diagram: 07/27/17 0449 07/27/17 0449 Objective Remarks GENERAL: This is a moderately obese middle-aged white male who is alert and cooperative . HEAD, EYES, EARS, NOSE, THROAT: Head normocephalic. The pupils are reactive. Tongue is moist. Throat is clear. Nasal mucosa clear NECK: The neck is supple. No venous distention. Trachea is midline. CHEST: Distant breath sounds with expiratory wheezes over both lung chaney. HEART: Heart sounds are irregular. S1-S2. No murmur. No S3. ABDOMEN: Abdomen soft and benign. No masses. No organomegaly or tenderness. The bowel sounds are active. EXTREMITIES:No edema. decreased peripheral pulses. NEUROLOGIC: Reflexes are 1+. No gross motor deficits. RECTAL: Rectal exam is deferred. Assessment and Plan Assessment and Plan IMPRESSION: 1. Acute respiratory failure. 2. COPD. 3. Chronic bronchitis. 4. Probable obstructive sleep apnea syndrome. 5. History of hypertension. 6. R/O PE 7. CHF Plan : 1. CBC,BMP in am 2. Wean o2 to N/C 3 L 3. will Arrange Sleep test as OP 4. Nebs qid , duoneb. 5. Lovenox 40 mg S/Q daily 6. prednisone 20 mg bid 7. PO Lasix 40 mg daily and KCl 20 meq. 8. Try to get Home CPAP machine Alisha Phan MD Jul 29, 2017 17:24
[2017-07-30] VITALS (10 sets, daily range): BP systolic 110–126; BP diastolic 51–69; PULSE 60–80; RESP 16–18; TEMP 97.3–98.3; O2SAT 91–100
[2017-07-30] MEDS: ZOLPIDEM TARTRATE 5 MG TAB PO PRN
[2017-07-30] MEDS: INSULIN ASPART SUPPLEMENTAL SCALE SQ SCH ×5 (00:05→20:51)
[2017-07-30] MEDS: ENOXAPARIN SODIUM 40 MG/0.4 ML SYRINGE SQ SCH (03:04)
[2017-07-30] MEDS: CHLORHEXIDINE GLUCONATE 2 % 1 PACK (2 CLOTHS) TOP SCH (04:00)
[2017-07-30] MEDS: DOCUSATE SODIUM 50 MG/SENNA 8.6 MG TAB PO SCH ×2 (09:00→20:51)
[2017-07-30] MEDS: FUROSEMIDE 40 MG TAB PO SCH (09:50)
[2017-07-30] MEDS: predniSONE 20 MG TAB PO SCH (09:50)
[2017-07-30] MEDS: REMOVE OLD PATCH T-DERMAL SCH (09:51)
[2017-07-30] MEDS: FAMOTIDINE 20 MG/2 ML VIAL IV PUSH SCH ×2 (09:51→20:51)
[2017-07-30] MEDS: NICOTINE 21 MG/24 HR PATCH T-DERMAL SCH (09:51)
[2017-07-30] MEDS: SODIUM CHLORIDE 0.9% FLUSH 10 ML FLUSH SCH ×2 (09:51→20:52)
[2017-07-30 10:11] LABS: AUTOMATED NEUTROPHIL # 5.1 TH/MM3 (1.8-7.7); BASOPHIL % 0.2 % (0.0-2.0); EOSINOPHIL # 0.1 TH/MM3 (0-0.4); EOSINOPHIL % 0.9 % (0.0-4.0); HEMATOCRIT 46.5 % (39.0-51.0); HEMO FLAGS DIFF FINAL; LYMPH % 31.5 % (9.0-44.0); LYMPHOCYTE # 2.7 TH/MM3 (1.0-4.8); MEAN CELL VOLUME 96.8 FL (80.0-100.0); MEAN CORPUSCULAR HEMOGLOBIN 32.5 PG (27.0-34.0); MEAN CORPUSCULAR HGB CONC 33.5 % (32.0-36.0); MONO % 8.3 % (0.0-8.0); NEUT % 59.1 % (16.0-70.0); PLATELET COUNT 143 TH/MM3 (150-450); WHITE BLOOD COUNT 8.6 TH/MM3 (4.0-11.0)
[2017-07-30 10:36] LABS: BICARBONATE 35.1 MEQ/L (21.0-32.0); POTASSIUM 4.3 MEQ/L (3.5-5.1)
--- NOTE | 2017-07-30 13:51 | HHI.PR ---
Subjective Remarks Says he feels some improvement. Satting well on 2-3 L NC now. No fever ro chills. No n/v/d/c. Has no pain at this time. Objective Vitals Vital Signs Date Time Temp Pulse Resp B/P (MAP) Pulse Ox O2 Delivery O2 Flow Rate FiO2 07/30/17 12:28 Nasal Cannula 2.00 07/30/17 12:00 98.3 60 18 126/59 (81) 100 07/30/17 10:18 95 21 07/30/17 09:44 64 07/30/17 09:44 Bi-Pap 07/30/17 08:00 97.3 63 18 112/59 (76) 91 07/30/17 04:16 96 40 07/30/17 01:58 95 40 07/29/17 23:58 98 BiPAP 40 07/29/17 23:58 98 40 07/29/17 22:00 77 07/29/17 20:10 98.0 84 16 121/76 (91) 96 07/29/17 20:00 Nasal Cannula 3.00 07/29/17 16:03 97.8 80 20 112/56 (74) 93 I/O 07/29/17 07/29/17 07/29/17 07/30/17 07/30/17 07/30/17 07:00 15:00 23:00 07:00 15:00 23:00 Intake Total 480 ml 380 ml 810 ml Output Total 350 ml Balance 480 ml 380 ml 460 ml Intake Oral 480 ml 380 ml 810 ml Output Urine Total 350 ml # Voids 3 6 # Bowel Movements 1 0 Result Diagram: 07/30/1791807/30/17918 Imaging Last Impressions Chest X-Ray 07/24/17 0600 Signed Impressions: Service Date/Time: July 05:11 - CONCLUSION: 1. Cardiomegaly with improved slight positive fluid balance. 2. Improved lower lobe aeration. Kendall Le MD CT Angiography 07/19/17 0789 Signed Impressions: Service Date/Time: Wednesday, July 19, 2017 16:01 - CONCLUSION: Suspicious for mild congestive failure There is no central pulmonary emboli. Duglas Johnson MD FACR Objective Remarks GENERAL: Middle age male, obese, in bed, on NC, doesn't appear in acute distress at this time. SKIN: Warm and dry. Red face NECK: Trachea midline. No JVD. CARDIOVASCULAR: Regular rate and rhythm. RESPIRATORY: No accessory muscle use. Less SOB. +cough with some sputum improved. Rhonchi at bases. GASTROINTESTINAL: Abdomen soft, obese, non-tender, nondistended. MUSCULOSKELETAL: Extremities without clubbing, cyanosis, or edema. No obvious deformities. NEUROLOGICAL: Awake and alert. No obvious cranial nerve deficits. Motor grossly within normal limits. Normal speech. PSYCHIATRIC: Appropriate mood and affect; insight and judgment normal. Procedures None A/P Problem List: (1) Acute hypercapnic respiratory failure ICD Code: J96.02 - Acute respiratory failure with hypercapnia Status: Acute (2) COPD with acute exacerbation ICD Code: J44.1 - Chronic obstructive pulmonary disease with (acute) exacerbation Status: Acute (3) Tobacco abuse disorder ICD Code: Z72.0 - Tobacco use Status: Chronic (4) Leukocytosis ICD Code: D72.829 - Elevated white blood cell count, unspecified Status: Acute (5) Obesity hypoventilation syndrome ICD Code: E66.2 - Morbid (severe) obesity with alveolar hypoventilation Status: Chronic (6) Hyperglycemia ICD Code: R73.9 - Hyperglycemia, unspecified Status: Acute (7) CHF (congestive heart failure) ICD Code: I50.9 - Heart failure, unspecified Discharge Planning (1) Acute hypercapnic respiratory failure ICD Code: J96.02 - Acute respiratory failure with hypercapnia Status: Acute Plan: The patient was admitted to the intensive care unit and placed on BiPAP for support. ABG on admission had a pH of 7.38, PCO2 55 and PO2 69 started on IV Solumedrol. Steroids tapered , DC solumedrol and started on prednisone PO, continue to taper as tolerated. Patient initially started on IV Zosyn and Vancomycin which were discontinued and patient started on Levaquin. Continue BiPAP as needed and supplemental oxygen to keep oxygen saturation more than 92%. Needs Bipap at night on O2 by NC during the day. needs Sleep study as OP. To f/u with pulm as OP as well. Appreciate pulmonary recommendations. We'll follow-up his recommendations. 07/19 respiratory failure improving. Patient down to 6 L on Ventimask and off BiPAP. CT of the chest was negative for PE but suspicious for congestive heart failure. 07/21 I will start the patient IV Lasix 40 mg IV twice a day, check BNP and order and to the echocardiogram to assessed heart function and anatomy. Patient still has increased oxygen requirement. Chest x-ray obtained on 07/21 showed mild infiltrate and effusion in the right lung base. I will broaden IV antibiotic therapy and cover for HCAP and aspiration pneumonia. Was on IV vancomycin and IV Zosyn, now DCd. On IV Levaquin. Check a sputum culture are negative. Blood cx so far negative 07/22 Patient still with elevated o2 requirements. Continue IV antibiotics and increase Lasix to BID since CXR reviewed shows pulmonary congestion. Sputum culture negative. Also patient with CHF with preserved EF 55-60 %. On Lasix 40 mg PO with KCl supplement 20 mEq. Monitor closely UOP, renal function and electrolytes. Replenish electrolytes as need. (2) COPD with acute exacerbation ICD Code: J44.1 - Chronic obstructive pulmonary disease with (acute) exacerbation Status: Acute Plan: As above. DC Solu-Medrol, taper prednisone. Continue BiPAP as needed Pulmonary following. (3) Tobacco abuse disorder ICD Code: Z72.0 - Tobacco use Status: Chronic Plan: Advised smoking cessation. (4) Leukocytosis ICD Code: D72.829 - Elevated white blood cell count, unspecified Status: Acute Plan: WBC increased from 7.6-14.0. Likely secondary to stress and a steroid use. 07/20 WBC slightly decreased from 14 K to 12 K. Patient has no fevers. Continue to monitor CBC with differential. 07/22 WBC stable, continue to monitor. (5) Obesity hypoventilation syndrome ICD Code: E66.2 - Morbid (severe) obesity with alveolar hypoventilation Status: Chronic Plan: Advised weight loss. Continue BiPAP as needed. (6) Hyperglycemia ICD Code: R73.9 - Hyperglycemia, unspecified Status: Acute Plan: No prior history of diabetes mellitus. Likely steroid-induced. Steroids are tapered Continue on SSI with insulin NovoLog and monitor Accu-Cheks. Check hemoglobin A1c Blood sugars stable. (7) CHF (congestive heart failure) ICD Code: I50.9 - Heart failure, unspecified Plan: As evidence on CTA of the chest described above. Unspecified type at this moment. 07/22 Echo cardiac shows mild concentric left ventricle hypertrophy with normal systolic function with an EF of 55-60%. Patient likely has acute diastolic heart failure. We'll continue diuresis with Lasix. Monitor urine output, kidney function and electrolytes closely. DC Plan: Case management consulted for DC plan. Not ready or DC. Patient still requiring 4-5 L NC during the day and biapap at night. Case management consulted for DC plan . Problem Qualifiers (1) Leukocytosis: Qualified Codes: D72.829 - Elevated white blood cell count, unspecified (2) CHF (congestive heart failure): Qualified Codes: I50.9 - Heart failure, unspecified Gretel Oliveros MD Jul 30, 2017 13:51
[2017-07-30] MEDS ORDERED: DIPHTH/TETANUS/ACEL PERTUSSIS (BOOSTER) 0.5 ML VIAL/PFS IM ONE (14:00)
[2017-07-30] MEDS ORDERED: PNEUMOCOCCAL POLYVALENT INJ 25 MCG/0.5 ML SYR SQ ONE (14:00)
[2017-07-30] MEDS ORDERED: FURO40TA PO (14:52)
[2017-07-30] MEDS ORDERED: VENTAER INH (14:56)
[2017-07-30] MEDS ORDERED: IPRA17I INH (14:56)
[2017-07-30] MEDS ORDERED: IPRASOL INH (14:56)
[2017-07-30] MEDS ORDERED: NICO21DI6 T-DERMAL (14:56)
[2017-07-30] MEDS ORDERED: INSPIREASE DRUG1 EA (14:56)
[2017-07-30] MEDS ORDERED: SALM50I INH (14:56)
--- NOTE | 2017-07-30 17:20 | HHI.PR ---
Subjective Remarks On N/C at 3 L. Feels better. Needs a Sleep test to qualify for CPAP at home No chest pain. Will need home O2 at 2 L. Will need rehab Objective Vital Signs Date Time Temp Pulse Resp B/P (MAP) Pulse Ox O2 Delivery O2 Flow Rate FiO2 07/30/17 16:00 97.8 80 18 110/51 (70) 93 07/30/17 12:28 Nasal Cannula 2.00 07/30/17 12:00 98.3 60 18 126/59 (81) 100 07/30/17 10:18 95 21 07/30/17 09:44 64 07/30/17 09:44 Bi-Pap 07/30/17 08:00 97.3 63 18 112/59 (76) 91 07/30/17 04:16 96 40 07/30/17 01:58 95 40 07/29/17 23:58 98 BiPAP 40 07/29/17 23:58 98 40 07/29/17 22:00 77 07/29/17 20:10 98.0 84 16 121/76 (91) 96 07/29/17 20:00 Nasal Cannula 3.00 I/O 07/29/17 07/29/17 07/29/17 07/30/17 07/30/17 07/30/17 07:00 15:00 23:00 07:00 15:00 23:00 Intake Total 480 ml 380 ml 810 ml Output Total 350 ml Balance 480 ml 380 ml 460 ml Intake Oral 480 ml 380 ml 810 ml Output Urine Total 350 ml # Voids 3 6 # Bowel Movements 1 0 Result Diagram: 07/30/1791807/30/17918 Objective Remarks GENERAL: This is a moderately obese middle-aged white male who is alert and cooperative . HEAD, EYES, EARS, NOSE, THROAT: Head normocephalic. The pupils are reactive. Tongue is moist. Throat is clear. Nasal mucosa clear NECK: The neck is supple. No venous distention. Trachea is midline. CHEST: Distant breath sounds with expiratory wheezes over both lung chaney. Occ Crackles at bases HEART: Heart sounds are irregular. S1-S2. No murmur. No S3. ABDOMEN: Abdomen soft and benign. No masses. No organomegaly or tenderness. The bowel sounds are active. EXTREMITIES:No edema. decreased peripheral pulses. NEUROLOGIC: Reflexes are 1+. No gross motor deficits. RECTAL: Rectal exam is deferred. Assessment and Plan Assessment and Plan IMPRESSION: 1. Acute respiratory failure. 2. COPD. 3. Chronic bronchitis. 4. Probable obstructive sleep apnea syndrome. 5. History of hypertension. 6. R/O PE 7. CHF Plan : 1. D/C CPAP at and Arrange sleep test at Dr Liriano's sleep lab 2. Wean o2 to N/C 3 L 3. PO Lasix 40 mg daily and KCl 20 meq. 4. Nebs qid , duoneb. 5. Lovenox 40 mg S/Q daily 6. prednisone 30 mg daily 7. To rehab anytime Alisha Phan MD Jul 30, 2017 17:20
[2017-07-31] MEDS: CHLORHEXIDINE GLUCONATE 2 % 1 PACK (2 CLOTHS) TOP SCH (04:00)
[2017-07-31] MEDS: ENOXAPARIN SODIUM 40 MG/0.4 ML SYRINGE SQ SCH (04:57)
[2017-07-31 08:00] VITALS: BP 121/65; PULSE 61; RESP 18; TEMP 97.4; O2SAT 93
[2017-07-31] MEDS: INSULIN ASPART SUPPLEMENTAL SCALE SQ SCH (08:15)
--- NOTE | 2017-07-31 09:09 | HHI.DS ---
Discharge Summary Admission Date Jul 18, 2017 at 01:10 Discharge Date: Jul 31, 2017 Admitting Diagnosis (1) Acute hypercapnic respiratory failure ICD Code: J96.02 - Acute respiratory failure with hypercapnia Status: Acute (2) COPD with acute exacerbation ICD Code: J44.1 - Chronic obstructive pulmonary disease with (acute) exacerbation Status: Acute (3) Tobacco abuse disorder ICD Code: Z72.0 - Tobacco use Status: Chronic (4) Leukocytosis ICD Code: D72.829 - Elevated white blood cell count, unspecified Status: Acute (5) Obesity hypoventilation syndrome ICD Code: E66.2 - Morbid (severe) obesity with alveolar hypoventilation Status: Chronic (6) Hyperglycemia ICD Code: R73.9 - Hyperglycemia, unspecified Status: Acute (7) CHF (congestive heart failure) ICD Code: I50.9 - Heart failure, unspecified Procedures None Brief History - From Admission 52-year-old very pleasant gentleman presents with the 7-10 day history of respiratory problems with progressive shortness of breath. 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 He went to an urgent care center in [place], was given an unknown antibiotic which sounds like azithromycin, in which he took 1 pill a day for 5 days, but did not get any better. He has continued to smoke, and he has continued to work. Denies any pains in his chest or elsewhere, but has had progressive shortness of breath. He went to an urgent care center here locally yesterday for further evaluation, but was sent immediately to the emergency department for high level of care, and was recommended to come by ambulance. Instead patient came by himself, stopping to smoke marijuana on the way before arrival. CBC/BMP: 07/30/17 0919 07/30/17 0919 Significant Findings Laboratory Tests Test 07/30/17 09:19 Platelet Count 143 TH/MM3 (150-450) Monocytes (%) (Auto) 8.3 % (0.0-8.0) Blood Urea Nitrogen 24 MG/DL (7-18) Calcium Level 8.2 MG/DL (8.5-10.1) Carbon Dioxide Level 35.1 MEQ/L (21.0-32.0) Estimat Glomerular Filtration Rate 86 ML/MIN (>89) Imaging Last Impressions Chest X-Ray 07/24/17 0600 Signed Impressions: Service Date/Time: July 05:11 - CONCLUSION: 1. Cardiomegaly with improved slight positive fluid balance. 2. Improved lower lobe aeration. Kendall Le MD CT Angiography 07/19/17 1509 Signed Impressions: Service Date/Time: Wednesday, July 19, 2017 16:01 - CONCLUSION: Suspicious for mild congestive failure There is no central pulmonary emboli. Duglas Johnson MD FACR PE at Discharge GENERAL: Middle age male, obese, in bed, on NC, doesn't appear in acute distress at this time. SKIN: Warm and dry. Red face NECK: Trachea midline. No JVD. CARDIOVASCULAR: Regular rate and rhythm. RESPIRATORY: No accessory muscle use. Less SOB. +cough with some sputum improved. Rhonchi at bases. GASTROINTESTINAL: Abdomen soft, obese, non-tender, nondistended. MUSCULOSKELETAL: Extremities without clubbing, cyanosis, or edema. No obvious deformities. NEUROLOGICAL: Awake and alert. No obvious cranial nerve deficits. Motor grossly within normal limits. Normal speech. PSYCHIATRIC: Appropriate mood and affect; insight and judgment normal. Pt update on day of discharge Feels much better doesn't require O2 anymore. Walked fairly well with PT. No sob , fever , chills or cough. Feels comfortable to go home , will follwo with Dr Kade wilde as OP for sleep study Hospital Course 52-year-old very pleasant gentleman presents with the 7-10 day history of respiratory problems with progressive shortness of breath. 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 He went to an urgent care center in [place], was given an unknown antibiotic which sounds like azithromycin, in which he took 1 pill a day for 5 days, but did not get any better. He has continued to smoke, and he has continued to work. Denies any pains in his chest or elsewhere, but has had progressive shortness of breath. He went to an urgent care center here locally yesterday for further evaluation, but was sent immediately to the emergency department for high level of care, and was recommended to come by ambulance. Instead patient came by himself, stopping to smoke marijuana on the way before arrival. Patient with Acute hypercapnic respiratory failure, COPD with acute exacerbation , Obesity hypoventilation syndrom, tobaccoism. The patient was admitted to the intensive care unit and placed on BiPAP for support..ABG on admission had a pH of 7.38, PCO2 55 and PO2 69 Started on IV Solumedrol. Steroids tapered , [place] solumedrol and started on prednisone PO, continue to taper as tolerated. Patient initially started on IV Zosyn and Vancomycin which were discontinued and patient started on Levaquin. Continue BiPAP as needed and supplemental oxygen to keep oxygen saturation more than 92%. Needs Bipap at night on O2 by NC during the day. needs Sleep study as OP. To f/u with pulm as OP as well. Appreciate pulmonary recommendations. We'll follow-up his recommendations.Sputum culture negative, blood cx neg . Also patient with CHF with preserved EF 55-60 %. On Lasix 40 mg PO with KCl supplement 20 mEq. Monitor closely UOP, renal function and electrolytes. Replenish electrolytes as need. Need sleep study at [place] Patient imprpved significantly. Discharged dome with home health in stable condition. To f/u as OP with PCP and consultants. Needs sleep study as oP as needs bipap at night . patient passed O2 walking test Pt Condition on Discharge: Stable Discharge Disposition: Discharge Home Discharge Time: > 30 minutes Discharge Instructions DIET: Follow Instructions for: Heart Healthy Diet Activities you can perform: Regular-No Restrictions Follow up Referrals: PCP Follow-up - 2-3 Days Pulmonology - 1 Week New Medications: Albuterol 18 GM Inh (Ventolin Hfa 18 GM Inh) 90 Mcg/Act Aer 2 PUFF INH Q4H PRN for SHORTNESS OF BREATH, #1 INHALER 0 Refills Ipratropium HFA 12.9 GM Inh (Atrovent HFA 12.9 GM Inh) 17 Mcg/Actuation Aer 2 PUFF INH Q6HR PRN for SHORTNESS OF BREATH, #1 INHALER 0 Refills Ipratropium-Albuterol Neb (Duoneb) 0.5-2.5 Mg/3 Ml Neb 1 NEBULE INH Q4HR NEB for Breathing Treatment, #180 NEBULE 0 Refills Nicotine Patch (Nicoderm CQ Patch) 21 Mg/24 Hr Patch 21 MG T-DERMAL DAILY for Smoking Cessation, #30 PATCH 0 Refills Salmeterol Inh (Serevent Diskus Inh) 50 Mcg/Act Aero 50 MCG INH BID for Shortness of Breath, #1 INHALER 0 Refills Spacer/Device For Mdi (Inspirease Drug Delivery) 1 Ea Mis EA .ROUTE DIRECTED, #1 0 Refills Furosemide (Furosemide) 40 Mg Tab 40 MG PO DAILY for chf, #30 TAB Gretel Oliveros MD Jul 31, 2017 09:09
--- NOTE | 2017-07-31 09:11 | HHI.FF ---
Face to Face Verification Diagnosis: (1) Leukocytosis (2) CHF (congestive heart failure) (3) Hyperglycemia (4) COPD with acute exacerbation (5) Obesity hypoventilation syndrome (6) Tobacco abuse disorder (7) Acute hypercapnic respiratory failure Physical Therapy Order: Evaluate and Treat Home Health Nursing Order: Medical education Signs/symptoms of disease process CHF education Medication education-adverse effect Nursing assessment with vital signs I have seen patient Duglas Bae on 07/31/17. My clinical findings support the need for the requested home health care services because: Ltd mobility - disease progression Patient has SOB I certify that my clinical findings support that this patient is homebound because: Post-op weakness Hx COPD- exertion dyspnea/weakness Gretel Oliveros MD Jul 31, 2017 09:11
[2017-07-31] MEDS: NICOTINE 21 MG/24 HR PATCH T-DERMAL SCH (09:37)
[2017-07-31] MEDS: DOCUSATE SODIUM 50 MG/SENNA 8.6 MG TAB PO SCH (09:37)
[2017-07-31] MEDS: REMOVE OLD PATCH T-DERMAL SCH (09:38)
[2017-07-31] MEDS: FAMOTIDINE 20 MG/2 ML VIAL IV PUSH SCH (09:39)
[2017-07-31] MEDS: FUROSEMIDE 40 MG TAB PO SCH (09:39)
[2017-07-31] MEDS: predniSONE 20 MG TAB PO SCH (09:39)
[2017-07-31] MEDS: SODIUM CHLORIDE 0.9% FLUSH 10 ML FLUSH SCH (09:39)
== END 2017-07-31 11:45 | disposition home health service (06) | DRG 190 ==
LOC: NEDDLT 01:00 → HIMN 01:10 → N04B 07-27 15:42
PROVIDERS: ADMIT Hospitalist; ATTEND Hospitalist
PROC: 5A09357 Assistance with Respiratory Ventilation, Less than 24 Consecutive Hours, Continuous Positive Airway Pressure (ICD-10-PCS; principal; 2017-07-18)
DX: J44.1 Chronic obstructive pulmonary disease with (acute) exacerbation (principal); I50.31 Acute diastolic (congestive) heart failure; J96.02 Acute respiratory failure with hypercapnia; E66.2 Morbid (severe) obesity with alveolar hypoventilation; I11.0 Hypertensive heart disease with heart failure; F17.210 Nicotine dependence, cigarettes, uncomplicated; I83.93 Asymptomatic varicose veins of bilateral lower extremities; R73.9 Hyperglycemia, unspecified; T38.0X5A Adverse effect of glucocorticoids and synthetic analogues, initial encounter; R19.7 Diarrhea, unspecified; F12.90 Cannabis use, unspecified, uncomplicated; Z23 Encounter for immunization
CPT/HCPCS: 36600; 71010; 71020; 71275; 76937; 80048; 80053; 81001; 82805; 82948; 83036; 83605; 83735; 83880; 84100; 84484; 85025; 85027; 87040; 87070; 87086; 87205; 87493; 87641; 90715; 90732; 93005; 93306; 94002; 94003; 94620; 94640; 94664; J0456; J1650; J1815; J1940; J1956; J2543; J2920; J2930; J3370; J7030; J7040; J7050; J7512; Q9967